=== PATIENT | female | born 1930 | race Hispanic/Latino ===

== ENCOUNTER 2016-08-04 12:52 | Inpatient (IN) | payer MEDICARE ==
[2016-08-04 12:56] VITALS: BMI 46.0
--- NOTE | 2016-08-04 13:34 | ED PDOC ---
Arrival/HPI - General Chief Complaint: Trauma Time Seen by Provider: 08/04/16 13:09 Historian: Patient - History of Present Illness Narrative History of Present Illness (Text): 08/04/16 13:00 Tiffanie Graham is an 85 year old female, whose past medical history includes low platelets and arthritis, who presents to the emergency department complaining of fall in bathroom about 2 hours ago. Patient states that her hands were very sweaty as she was walking into her bathroom that she slipped off her walker and fell. Patient indicates her pain to be localized to her right lateral thorax. Patient confirms that she did not hit her head, lose consciousness, any nausea, or vomiting. Patient states she was on the floor for about 25 minutes. She endorses that she took her daily pain medication today. Patient denies any vomiting, fevers, or any other complaint at this time. PMD: Dr. Garces Time/Duration: 1-3 hours Symptom Onset: Sudden Symptom Course: Unchanged Activities at Onset: Light Context: Home Past Medical History - Provider Review Nursing Documentation Reviewed: Yes - Infectious Disease Hx of Infectious Diseases: None - Tetanus Immunization Tetanus Immunization: Unknown - Reproductive Menopause: Yes - Cardiac Hx Hypertension: Yes - Pulmonary Hx Respiratory Disorders: No - Neurological Hx Neurological Disorder: No - HEENT Hx HEENT Disorder: No - Endocrine/Metabolic Hx Endocrine Disorders: No - Hematological/Oncological Other/Comment: PLATELET ABNORMALITY - Integumentary Hx Dermatological Disorder: No - Musculoskeletal/Rheumatological Hx Falls: Yes - Gastrointestinal Hx Gastrointestinal Disorders: No - Genitourinary/Gynecological Hx Genitourinary Disorders: No - Psychiatric Hx Psychophysiologic Disorder: No Hx Physical Abuse: No Hx Substance Use: No - Past Surgical History Past Surgical History: Non-Contributing - Suicidal Assessment Feels Threatened In Home Enviroment: No Family/Social History - Physician Review Nursing Documentation Reviewed: Yes Family/Social History: No Known Family HX Smoking Status: Never Smoked Hx Alcohol Use: No Hx Substance Use: No Hx Substance Use Treatment: No Allergies/Home Meds Allergies/Adverse Reactions: Allergies No Known Allergies Allergy (Verified 03/11/15 08:58) Home Medications: Home Meds Medication Instructions Recorded Confirmed Prednisone 5 mg PO DAILY 04/11/12 08/04/16 Simvastatin [Zocor] 10 mg PO DAILY 04/11/12 08/04/16 Bumetanide [Bumex] 1 mg PO DAILY 08/04/16 08/04/16 Cholecalciferol [Vitamin D 1000 IU] 50,000 unit PO QWK 08/04/16 08/04/16 Oxybutynin Chloride [Oxybutynin 15 mg PO DAILY 08/04/16 08/04/16 Chloride ER] Oxycodone HCl [Oxycontin] 10 mg PO Q6 08/04/16 08/04/16 Ramipril [Altace] 10 mg PO DAILY 08/04/16 08/04/16 Review of Systems - Review of Systems Constitutional: absent: Fevers, Night Sweats Eyes: absent: Vision Changes ENT: absent: Hearing Changes Respiratory: absent: SOB, Cough Cardiovascular: Other (Pain to right lateral thorax). absent: Chest Pain Gastrointestinal: absent: Abdominal Pain Genitourinary Female: absent: Urine Output Changes Musculoskeletal: absent: Neck Pain Skin: absent: Rash, Pruritis Physical Exam - Physical Exam Narrative Physical Exam (Text): Constitutional: No acute distress. Head: Normocephalic. Atraumatic. Eyes: PERRL. ENT: Moist mucous membranes. Neck: No mindline tenderness. Supple. Cardiovascular: Regular rate. Chest: Tenderness to Right lateral chest wall, under axilla. Respiratory: Clear to auscultation bilaterally. GI: Soft. Nontender. Nondistended. Back: No mindline tenderness. No CVA tenderness. Musculoskeletal: Pelvis stable. Full ROM x4. No new ecchymosis. No tear in skin. No tenderness. Skin: No rash. Neurologic: Alert, no focal deficit. Vital Signs Reviewed: Yes Vital Signs Temp Pulse Resp BP Pulse Ox 08/04/16 14:21 89 18 128/58 L 97 08/04/16 13:01 98.3 F 98 H 18 131/54 L 97 Temperature: Afebrile Blood Pressure: Hypotensive Pulse: Tachycardic Respiratory Rate: Normal Appearance: Positive for: Well-Appearing, Non-Toxic, Comfortable Pain Distress: None Mental Status: Positive for: Alert and Oriented X 3 Medical Decision Making ED Course and Treatment: 08/04/16 13:00 Impression: 85 year old female complaining of fall about 2 hours ago. Plan: -- Head CT w/o contrast -- Right Ribs and Chest X-ray -- Reassess and disposition Prior Visits: Notes and results from previous visits were reviewed. Patient last seen in ED on 03/11/15 for right sided body pain since she fell out of a chair the night before arrival. Patient was discharged home. Progress Notes: 08/04/16 13:00 Patient declined any parenteral analgesia. 08/04/16 14:[address] w/o contrast: Creator : Gorge Aldridge MD FINDINGS: HEMORRHAGE:No intracranial hemorrhage. BRAIN:No mass effect or edema. Chronic microvascular changes are seen in the periventricular white matter. VENTRICLES:Unremarkable. No hydrocephalus. CALVARIUM:Unremarkable. PARANASAL SINUSES:Unremarkable as visualized. No significant inflammatory changes. MASTOID AIR CELLS:Unremarkable as visualized. No inflammatory changes. OTHER FINDINGS:None. IMPRESSION: No acute findings 08/04/16 15:44 PROCEDURE: Radiographs of the Chest and Right Ribs. HISTORY: lateral thoracic pain s/p fall COMPARISON: None available. TECHNIQUE: Frontal radiograph of the chest and multiple oblique radiographs of the right ribs were obtained. FINDINGS: RIGHT RIBS: No fracture or focal lesion visualized. LUNGS: Clear. PLEURA: No pneumothorax or pleural fluid. CARDIOVASCULAR: Normal sized heart. No pulmonary vascular congestion. OTHER FINDINGS: None. IMPRESSION: Unremarkable radiographs of the chest and right ribs. No right rib fracture. Patient states she is still in pain but continues to refuse pain medication preferring to take her home oxycontin. At this time, the patient requests to be kept in the hospital for rehab as she does not feel any strength or ability to take care of self and ambulate at home , especially after her fall. Will draw labs and EKG at this time and call medical service for admission. Will initiate observation now. - RAD Interpretation Radiology Orders: 08/04/16 13:09 HEAD W/O CONTRAST [CT] Stat RIBS RIGHT & PA CHEST [RAD] Stat ED OBSERVATION Date of observation admission: 08/04/16 Time of observation admission: 15:10 - Observation admission statement Patient is being placed in observation because:: fall, requires further evaluation in ER prior to admission. - Goals of Observation Goals of observation are:: safe observation while obtaining admission labs. - Progress Note Progress Note: 08/04/16 15:51 EKG Sinus rhythm 77 bpm, no ST elevations. RBBB. No change from previous. 08/04/16 18:11 Labs unremarkable. Baseline thrombocytopenia. Patient attempted to be ambuated but unable. Patient lives with elderly (over 90 y/o) and has no one to take care of her at home. Unsafe to be discharged. Will require further admission. Pelvis and knee XR obtained as well given decreased ambulation status. Patient states that the pain she has in the pelvis and knee are her baseline. Imaging both negative for fracture or dislocation. Dr. Ashby accepts patient to medical service. - Scribe Statement The provider has reviewed the documentation as recorded by the Obi Luong Provider Scribe Attestation: All medical record entries made by the Obi were at my direction and personally dictated by me. I have reviewed the chart and agree that the record accurately reflects my personal performance of the history, physical exam, medical decision making, and the department course for this patient. I have also personally directed, reviewed, and agree with the discharge instructions and disposition. Disposition/Present on Arrival - Present on Arrival Any Indicators Present on Arrival: No History of DVT/PE: No History of Uncontrolled Diabetes: No Urinary Catheter: No History of Decub. Ulcer: No History Surgical Site Infection Following: None - Disposition Have Diagnosis and Disposition been Completed?: Yes Diagnosis: Decreased ambulation status, Rib pain Disposition: HOSPITALIZED Disposition Time: 18:40 Patient Plan: Admission Condition: STABLE
--- NOTE | 2016-08-04 14:00 | CT ---
PROCEDURE: CT HEAD WITHOUT CONTRAST. HISTORY: fall COMPARISON: 03/11/2015 TECHNIQUE: Axial computed tomography images were obtained through the head/brain without intravenous contrast. Radiation dose: Total exam DLP = 688 mGy-cm. This CT exam was performed using one or more of the following dose reduction techniques: Automated exposure control, adjustment of the mA and/or kV according to patient size, and/or use of iterative reconstruction technique. FINDINGS: HEMORRHAGE: No intracranial hemorrhage. BRAIN: No mass effect or edema. Chronic microvascular changes are seen in the periventricular white matter. VENTRICLES: Unremarkable. No hydrocephalus. CALVARIUM: Unremarkable. PARANASAL SINUSES: Unremarkable as visualized. No significant inflammatory changes. MASTOID AIR CELLS: Unremarkable as visualized. No inflammatory changes. OTHER FINDINGS: None. IMPRESSION: No acute findings
--- NOTE | 2016-08-04 15:07 | RAD ---
PROCEDURE: Radiographs of the Chest and Right Ribs. HISTORY: lateral thoracic pain s/p fall COMPARISON: None available. TECHNIQUE: Frontal radiograph of the chest and multiple oblique radiographs of the right ribs were obtained. FINDINGS: RIGHT RIBS: No fracture or focal lesion visualized. LUNGS: Clear. PLEURA: No pneumothorax or pleural fluid. CARDIOVASCULAR: Normal sized heart. No pulmonary vascular congestion. OTHER FINDINGS: None. IMPRESSION: Unremarkable radiographs of the chest and right ribs. No right rib fracture.
[2016-08-04 16:48] LABS: ADD MANUAL DIFF? NO
[2016-08-04 16:49] LABS: BASO # 0.02 K/mm3 (0.0-2.0); BASO % 0.2 % (0.0-3.0); EOS % 0.1 % (1.5-5.0); GRAN # 6.05 (1.4-6.5); GRAN % 66.6 % (50.0-68.0); LYMPH # 2.2 (1.2-3.4); LYMPH % 24.7 % (22.0-35.0); MEAN CELL VOLUME 91.9 fL (80.0-105.0); MEAN CORPUSCULAR HEMOGLOBIN 30.7 pg (25.0-35.0); MEAN CORPUSCULAR HGB CONC 33.4 g/dl (31.0-37.0); MEAN PLATELET VOLUME 10.2 fl (7.0-11.0); MONO # 0.8 (0.1-0.6); MONO % 8.4 % (1.0-6.0); PLATELET COUNT 102 10^3/uL (120.0-450.0); RED CELL DISTRIBUTION WIDTH 13.9 % (11.5-14.5); WHITE BLOOD COUNT 9.1 10^3/ul (4.5-11.0)
[2016-08-04 17:01] LABS: ALB/GLOB RATIO 1.1 (1.1-1.8); ALKALINE PHOSPHATASE 55 U/L (38-133); ALT/SGPT 33 U/L (7-56); AST/SGOT 32 U/L (15-39); BILIRUBIN,TOTAL 1.1 mg/dL (0.2-1.3); BLOOD UREA NITROGEN 35 mg/dL (7-21); CALCIUM 9.3 mg/dL (8.4-10.5); CARBON DIOXIDE 28 mmol/L (21-33); CHLORIDE 105 mmol/L (98-107); GFR AFRICAN-AMERICAN > 60; GLUCOSE,RANDOM 89 mg/dL (70-110); POTASSIUM 4.3 mmol/L (3.6-5.0); SODIUM 141 mmol/L (132-148); TOTAL PROTEIN 6.6 g/dL (5.8-8.3)
[2016-08-04 18:38] LABS: URINE BILIRUBIN NEGATIVE (NEGATIVE); URINE BLOOD SMALL (NEGATIVE); URINE GLUCOSE (UA) NEGATIVE (NEGATIVE); URINE KETONE NEGATIVE (NEGATIVE); URINE LEUKOCYTE ESTERASE MODERATE Leu/uL (NEGATIVE); URINE PROTEIN NEGATIVE mg/dL (<30 mg/dL); URINE UROBILINOGEN 0.2 E.U./dL (<1 E.U./dL)
[2016-08-04 18:45] LABS: URINE APPEARANCE SL CLOUDY (CLEAR); URINE COLOR YELLOW (YELLOW)
[2016-08-04 18:56] LABS: URINE BACTERIA MANY (NEG); URINE WBC 15 - 20 /hpf (0-6)
[2016-08-04] MEDS ORDERED: levoFLOXacin 500 mg in D5W 500 MG/100 ML BAG IVPB STA (19:00)
[2016-08-04] MEDS ORDERED: oxyCODONE 10 mg ER Tab (oxyCONTIN) PO PRN (20:29)
--- NOTE | 2016-08-04 21:54 | CARD ---
APPROVED REPORT EKG Measurement Heart [id number] <Conclusion> Normal sinus rhythm Right bundle branch block Left anterior fascicular block Bifascicular block Abnormal ECG
[2016-08-04] MEDS: Cefepime 1gm in NS 100ml 1 GM/100 ML BAG IVPB SCH (22:01)
[2016-08-04] MEDS: POLYETHYLENE GLYCOL 3350 17 GM/Dose PACKET PO SCH (23:23)
[2016-08-05 07:47] LABS: ADD MANUAL DIFF? NO
[2016-08-05 07:52] LABS: BASO # 0.02 K/mm3 (0.0-2.0); BASO % 0.3 % (0.0-3.0); EOS % 0.6 % (1.5-5.0); GRAN # 3.65 (1.4-6.5); GRAN % 54.9 % (50.0-68.0); HEMATOCRIT 32.6 % (36.0-48.0); LYMPH # 2.4 (1.2-3.4); LYMPH % 35.6 % (22.0-35.0); MEAN CELL VOLUME 93.4 fL (80.0-105.0); MEAN CORPUSCULAR HEMOGLOBIN 30.4 pg (25.0-35.0); MEAN CORPUSCULAR HGB CONC 32.5 g/dl (31.0-37.0); MEAN PLATELET VOLUME 11.1 fl (7.0-11.0); MONO # 0.6 (0.1-0.6); MONO % 8.6 % (1.0-6.0); PLATELET COUNT 97 10^3/uL (120.0-450.0); RED CELL DISTRIBUTION WIDTH 14.1 % (11.5-14.5); WHITE BLOOD COUNT 6.7 10^3/ul (4.5-11.0)
[2016-08-05 08:02] LABS: ALB/GLOB RATIO 1.2 (1.1-1.8); ALKALINE PHOSPHATASE 40 U/L (38-133); ALT/SGPT 28 U/L (7-56); AST/SGOT 30 U/L (15-39); BILIRUBIN,DIRECT 0.2 mg/dL (0.0-0.4); BILIRUBIN,TOTAL 1.4 mg/dL (0.2-1.3); BLOOD UREA NITROGEN 30 mg/dL (7-21); CALCIUM 8.6 mg/dL (8.4-10.5); CARBON DIOXIDE 28 mmol/L (21-33); CHLORIDE 106 mmol/L (98-107); CHOLESTEROL 162 mg/dL (130-200); GFR AFRICAN-AMERICAN > 60; GLUCOSE,RANDOM 85 mg/dL (70-110); MAGNESIUM 1.9 mg/dL (1.7-2.2); POTASSIUM 4.2 mmol/L (3.6-5.0); SODIUM 139 mmol/L (132-148); TOTAL PROTEIN 5.7 g/dL (5.8-8.3)
[2016-08-05] MEDS: Sodium Chloride 0.9% 1,000 ML IV SCH (09:07)
[2016-08-05] MEDS: Pantoprazole 40 mg EC Tab PO SCH (09:08)
[2016-08-05] MEDS: oxyCODONE 10 mg Immediate Release Tab PO PRN (09:08)
[2016-08-05] MEDS: Cefepime 1gm in NS 100ml 1 GM/100 ML BAG IVPB SCH ×2 (09:09→21:09)
[2016-08-05] MEDS: POLYETHYLENE GLYCOL 3350 17 GM/Dose PACKET PO SCH ×3 (09:09→19:58)
[2016-08-05] MEDS: Metoprolol Succinate 25 mg XL Tab PO SCH (09:10)
[2016-08-05] MEDS ORDERED: Non Formulary Medication (Simvastatin [Simvastatin] 10 MG) PO SCH (10:00)
[2016-08-05] MEDS ORDERED: Pantoprazole 20 mg EC Tab PO SCH (10:00)
--- NOTE | 2016-08-05 10:20 | HP ---
HISTORY OF PRESENT ILLNESS: The patient is an 85-year-old morbidly obese female who came to the Emergency Room by [facility]. The patient stated that the patient fell in the bathroom, complaining of left arm and bilateral leg pain with chronic leg swelling. According to the ER physician evaluation the patient came to the Emergency Room after sustaining a fall in the bathroom about 2 hours ago. The patient also complained of diffuse diaphoresis and slipped while trying to use her walker and fell and fell on the left and hitting her ribcage and does not remember if she hit her head. The patient stated that she was on the floor for 25 minutes. The patient has been on chronic narcotic maintenance. CODE STATUS: Full code. LIVING WILL AND ADVANCED DIRECTIVE: None. ALLERGIES: None. Height is 5 feet 3. Weight is 260. BMI is 46. HOME MEDICATIONS: 1. Oxycodone 1 tab q. 6 hours p.r.n. 2. Vitamin D2 50,000 units weekly. 3. Protonix 40 mg daily. 4. Prednisone 5 mg daily. 5. Lopressor 25 mg daily. 6. Altace 10 mg daily. 7. Allopurinol 100 mg daily. 8. Ultram 50 mg q. 6 hours p.r.n. 9. Simvastatin 10 mg daily. SOCIAL HISTORY: Negative for smoking, negative for alcohol, negative for drug use, negative for communicable transmissible disease. MENSTRUAL HISTORY: The patient is postmenopausal. FAMILY HISTORY: Not available. PAST MEDICAL AND SURGICAL HISTORY: History of morbid obesity, history of gait dysfunction, history of chronic venous stasis of the lower extremity, history of degenerative joint disease and pain syndrome, history of hypovitaminosis D, history of hypertension, history of chronic thrombocytopenia, history of hyperuricemia, history of dyslipidemia. The patient's past medical history is also significant for chronic thrombocytopenia, history of hypovitaminosis D, history of poor compliance, history of microscopic hematuria. The patient's past medical history is significant for history of moderate to severe mitral annular calcification with normal ejection fraction on the echocardiogram done in 2014. The patient's past medical history is also significant for history of obesity, hypertension, thrombocytopenia, degenerative joint disease, history of osteoporosis, history of morbid obesity, history of right bundle branch, left anterior hemiblock, bifascicular block, history of L2 compression deformity, history of degenerative joint disease of the lumbar spine with disk bulge, history of urinary bladder diverticulum, history of right bundle branch block, bifascicular block, left anterior hemiblock, history of cerebral cortical atrophy of the brain, history of degenerative joint disease of the left hip, left sacroiliac joint, degenerative joint disease of the lumbar spine, history of diverticulosis, history of hypertension, history of thrombocytopenia, granulocytosis, history of acute kidney injury, history of probable urinary retention, history of noncompliance, history of moderate to severe mitral annular calcification, history of severe gait dysfunction secondary to morbid obesity, history of diverticulosis, history of cerebral cortical atrophy of the brain, history of lumbar multilevel degenerative disk disease of the spine with disk bulging, history of hypertension, history of mechanical fall, history of questionable urinary tract infection, history of elevated ESR and C-reactive protein, history of hyperuricemia, hypovitaminosis D, history of constipation, history of gait dysfunction, history of urinary bladder diverticulum, history of intractable back pain and hip pain, history of degenerative joint disease, history of morbid obesity. PHYSICAL EXAMINATION: VITAL SIGNS: T-max is 98.3. Heart rate 98, 89, 85, 75, blood pressure initially 131/54, 128/58, 114/50. Respirations 16, O2 sat 97-98%. HEAD: Normocephalic, atraumatic. HEENT: Pinkish, pale conjunctivae, anicteric sclerae. No oropharyngeal lesion. NECK: No neck rigidity. CHEST: Kyphosis. LUNGS: Show no rales, crackles, or wheezing. CARDIOVASCULAR: S1, S2, regular rhythm. Positive systolic murmur left sternal border, left second intercostal space: ABDOMEN: Soft, obese, positive bowel sounds. GENITALIA: Female. RECTAL: Deferred. EXTREMITIES: Show chronic discoloration of the lower extremity, chronic tense edema of the lower extremity. MUSCULOSKELETAL: Shows a body mass index of 46.1. Gait examination could not be tested. NEUROLOGIC: The patient is alert, awake, responsive, is able to move upper extremity, but patient has difficulty moving lower extremity because of the back pain and hip pain. PSYCHIATRIC: Negative for anxiety, depression. Negative for suicidal or homicidal ideation, negative for auditory or visual hallucinations. DIAGNOSTICS: WBC 9.1, hemoglobin and hematocrit 11.7 and 35.0, platelet 102. Sodium 141, potassium 4.3, chloride 105, CO2 28, anion gap 12, BUN 35, creatinine 1.0, GFR greater than 60, glucose 89, calcium 9.3, total bili 1.1. CPK 360. LFTs are normal. Urine pH 6.0, specific gravity 1.025, small blood, nitrite positive, moderate leukocyte esterase, WBC 15-20, bacteria many. CT of the head done in the Emergency Room was negative for bleed; chronic microvascular ischemic disease of the brain. EKG done in the Emergency Room shows sinus rhythm, left anterior hemiblock, right bundle branch block, bifascicular block. The patient was seen in the Emergency Room by Dr. Brown. The patient refused pain medication and continues to be in pain. The patient stated that she took her OxyContin. The patient has requested to be kept in the hospital. The stated that she was unable to ambulate and the patient has an elderly at home without any help and there is nobody to take care of her. The patient was found to be unsafe discharge by Dr. Brown because of the pain, difficulty walking, difficulty ambulation and the patient was placed in ER OBS and then medical observation. IMPRESSION: 1. Status post mechanical fall. 2. Probable ribcage contusion and leg pain. 3. History of hypertension. 4. Severe gait dysfunction. 5. Morbid obesity. 6. 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 7. Anemia. 8. Thrombocytopenia. 9. Mild prerenal kidney injury. 10. Mild rhabdomyolysis. 11. Questionable urinary tract infection with microscopic hematuria, pyuria, bacteriuria. 12. Chronic microvascular ischemic disease of the brain. 13. History of chronic thrombocytopenia. 14. 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 Severe gait dysfunction. 16. History of chronic narcotic-dependent pain syndrome, history of hypovitaminosis D, history of hypertension, history of hyperuricemia, history of dyslipidemia. PLAN: At this time, patient was found to be an unsafe discharge because of severe gait dysfunction and fall and decreased ambulation. The patient requested to be placed in a rehab. The patient has been ordered repeat labs. Lipid panel, thyroid panel, vitamin D, repeat labs ordered for the morning. Urine culture ordered. The patient has been ordered pelvis and knee x-rays, reports are pending. Consultation with podiatry has been ordered. The patient is resumed on most of the home medications. The patient was started on cefepime 1 gram IV q. 12, MiraLax 17 g twice a day, Altace 10 mg daily, Drisdol 50,000 weekly. The patient received a dose of Levaquin 500 IV in the Emergency Room. Lipitor 10 mg daily, cefepime 1 gram IV q. 12, MiraLax 17 g twice a day, oxycodone 10 mg q. 6 p.r.n., prednisone 5 mg daily, Protonix 40 daily, Toprol-XL 25 mg daily, Ultram 50 mg q. 6 p.r.n., allopurinol 100 mg daily. Out of bed has been ordered. Physical therapy, ambulation therapy ordered. The patient will be started on some gentle IV fluid hydration because of prerenal kidney injury. At present, the patient is awaiting for a bed. The patient's case will be referred for discharge planning. Occupational therapy will be ordered. The patient has been advised very extensively about possible long-term placement as patient has no help at home and the patient has an elderly . Dictated and electronically signed, not yet. Quinten Ashby MD cc: [id number] TT: 08/04/2016 23:19:04 tn MTDD
--- NOTE | 2016-08-05 12:41 | RAD ---
PROCEDURE: Radiographs of the pelvis. HISTORY: fall, unable to ambulate COMPARISON: None. FINDINGS: BONES: Pelvic Bones: Limited examination. Single mildly oblique view. No fracture identified. Hips: No fracture. Severe osteoarthritis with remodeling of superior acetabulum. JOINTS: Sacroiliac Joints: Unremarkable. Pubic Symphysis: Unremarkable. OTHER FINDINGS: None. IMPRESSION: Severe osteoarthritis left hip. No evidence of acute fracture. Limited examination.
--- NOTE | 2016-08-05 12:42 | RAD ---
PROCEDURE: Left Knee Radiographs. HISTORY: Pain. COMPARISON: None. FINDINGS: BONES: No evidence of fracture. JOINTS: Medial and patellofemoral osteoarthritis. No articular erosion. JOINT EFFUSION: None. OTHER FINDINGS: None. IMPRESSION: No acute fracture. Medial and patellofemoral osteoarthritis.
--- NOTE | 2016-08-05 19:15 | PN ---
DATE: 08/05/2016 The patient is seen in room 375, bed 2. The patient is seen lying in the bed. The patient is still complaining of hip pain and back pain. Overnight nurses' notes were reviewed. The patient required Ultram overnight. The patient continued to have the Hernandez catheter. OBJECTIVE: VITAL SIGNS: T-max in the last 24 hours 98.3, pulse rate of 71-98, blood pressure 131/54, 114/50, 121/70; respirations 18, O2 sat 98% and 99%. INTAKE AND OUTPUT: Intake 720, output 400. Yesterday's output was 400+800, 1200 total. HEAD: Normocephalic, atraumatic. HEENT: Shows pinkish, pale conjunctivae, anicteric sclerae. Dry oral mucosa. NECK: No neck rigidity. CHEST: Kyphosis. LUNGS: Shows no rales, crackles, or wheezing. CARDIOVASCULAR: S1, S2, regular rhythm. Questionable soft systolic murmur left sternal border, left second intercostal space. ABDOMEN: Obese, positive bowel sounds. GENITALIA: Female. Positive Hernandez catheter. EXTREMITIES: Positive chronic lower extremity skin changes and nonpitting edema of the lower extremity. VASCULAR: Could not be palpated pulses. MUSCULOSKELETAL: Shows a body mass index of 46. Weight is 260. NEUROLOGIC: The patient is alert, awake, responsive, is able to move upper extremity without assistance. The patient has difficulty moving lower extremity because of the back pain and hip pain. PSYCHIATRIC: Negative for anxiety, depression. Negative for auditory or visual hallucinations. Negative for suicidal or homicidal ideation. DIAGNOSTICS: From 08/05: WBC 6.7, hemoglobin and hematocrit 10.6 and 32.6, platelets 97,000. Sodium 139, potassium 4.2, chloride 106, CO2 of 28, anion gap 9, BUN 30, creatinine 0.9, GFR greater than 60, glucose 85, uric acid 6.0, calcium 8.6, magnesium 1.9. Total protein 5.7, albumin 3.1. Cholesterol 162, triglyceride 112, LDL 90, HDL 50. Vitamin D25 hydroxy 28. Pelvic x-rays: Severe osteoarthritis of the left hip with remodeling of the superior acetabulum. Osteoarthritis of the left knee noted with medial and patellofemoral osteoarthritis of the left knee. 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 IMPRESSION AND PLAN: 1. Status post mechanical fall. 2. Probable ribcage contusion and leg pain and back pain. 3. Questionable intractable pain disorder and narcotic dependent pain syndrome. 4. Severe gait dysfunction. 5. Hypertension. 6. History of hypertension, normotension at present. 7. Stage II sacral decubitus ulceration. 8. Normocytic anemia with thrombocytopenia. 9. Mild prerenal kidney injury. 10. Hyperbilirubinemia. 11. Hypovitaminosis D. 12. History of dyslipidemia. 13. Microscopic hematuria, pyuria, bacteriuria. 14. Questionable urinary tract infection. 15. Severe osteoarthritis of the left hip. 16. Left knee osteoarthritis with medial and patellofemoral osteoarthritis of the left knee. 17. 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 18. Questionable urinary tract infection with microscopic hematuria, pyuria, bacteriuria. 1. Status post mechanical fall. 2. Probable ribcage contusion and leg pain. 3. History of hypertension. 4. Severe gait dysfunction. 5. Morbid obesity. 6. 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 7. Anemia. 8. Thrombocytopenia. 9. Mild prerenal kidney injury. 10. Mild rhabdomyolysis. 11. Questionable urinary tract infection with microscopic hematuria, pyuria, bacteriuria. 12. Chronic microvascular ischemic disease of the brain. 13. History of chronic thrombocytopenia. 14. 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 Severe gait dysfunction. 16. History of chronic narcotic-dependent pain syndrome, history of hypovitaminosis D, history of hypertension, history of hyperuricemia, history of dyslipidemia. PLAN: At this time, the patient has been ordered serial labs. Podiatry consultation ordered. The patient is to be continued on Altace 10 mg daily, Drisdol 50,000 weekly. The patient has been started on Lac-Hydrin lotion to both legs. The patient is on Lipitor 10 mg daily, Maxipime 1 gram IV q.12, MiraLax 17 g twice a day, oxycodone 10 mg q.6 p.r.n., prednisone 5 mg daily, Protonix 40 mg daily, IV fluids 0.9 normal saline at 60 mL an hour, Toprol-XL 25 mg daily, tramadol 50 mg q.6 p.r.n., vitamin D3 2000 units daily, allopurinol 100 mg daily. The patient has been ordered out of bed. Knee high MARIANO stockings ordered. Occupational therapy and physical therapy ordered. The patient's case has been referred for initiating discharge planning. The patient has been ordered serial labs. The patient has been ordered out of bed to chair. At present, the patient's further management will be dependent upon the patient's clinical condition, hemodynamic status, and as per patient's response to therapeutic intervention, as per patient's diagnostic test results and recommendation based on the patient's clinical condition, hemodynamic status, and response to therapeutic intervention. The patient has been ordered physical and occupational therapy. The patient has been advised to cooperate and encouraged to participate in physical therapy, which the patient acknowledges and understands at present. The patient was told and explained about the risk of not ambulating and risk of bedridden status, which was explained to the patient in layman's language. All questions and concerns were answered. The patient was advised, encouragement with out of bed to chair, encouragement with ambulation was ordered and encouragement with ambulation was also done. Dictated and electronically signed, not read. Quinten Ashby MD cc: [id number] TT: 08/05/2016 19:14:42 Confirmation # [id number] Dictation # [id number] lobo STUBBS
[2016-08-06] MEDS: Sodium Chloride 0.9% 1,000 ML IV SCH ×2 (02:19→20:40)
[2016-08-06 07:10] LABS: ADD MANUAL DIFF? NO
[2016-08-06 07:15] LABS: BASO # 0.03 K/mm3 (0.0-2.0); BASO % 0.4 % (0.0-3.0); EOS # 0.1 (0.0-0.7); EOS % 1.8 % (1.5-5.0); GRAN # 3.23 (1.4-6.5); GRAN % 47.3 % (50.0-68.0); HEMATOCRIT 33.2 % (36.0-48.0); LYMPH # 2.8 (1.2-3.4); LYMPH % 41.6 % (22.0-35.0); MEAN CORPUSCULAR HEMOGLOBIN 30.5 pg (25.0-35.0); MEAN CORPUSCULAR HGB CONC 32.8 g/dl (31.0-37.0); MEAN PLATELET VOLUME 10.9 fl (7.0-11.0); MONO # 0.6 (0.1-0.6); MONO % 8.9 % (1.0-6.0); PLATELET COUNT 88 10^3/uL (120.0-450.0); RED CELL DISTRIBUTION WIDTH 13.8 % (11.5-14.5); WHITE BLOOD COUNT 6.8 10^3/ul (4.5-11.0)
[2016-08-06 07:28] LABS: ALB/GLOB RATIO 1.2 (1.1-1.8); ALKALINE PHOSPHATASE 41 U/L (38-133); ALT/SGPT 30 U/L (7-56); AST/SGOT 31 U/L (15-39); BILIRUBIN,DIRECT 0.2 mg/dL (0.0-0.4); BILIRUBIN,TOTAL 1.1 mg/dL (0.2-1.3); BLOOD UREA NITROGEN 26 mg/dL (7-21); CALCIUM 8.7 mg/dL (8.4-10.5); CARBON DIOXIDE 29 mmol/L (21-33); CHLORIDE 105 mmol/L (98-107); GFR AFRICAN-AMERICAN > 60; GLUCOSE,RANDOM 81 mg/dL (70-110); MAGNESIUM 1.9 mg/dL (1.7-2.2); POTASSIUM 4.4 mmol/L (3.6-5.0); SODIUM 137 mmol/L (132-148); TOTAL PROTEIN 5.5 g/dL (5.8-8.3); URIC ACID 5.5 mg/dL (2.5-6.2)
[2016-08-06] MEDS: Metoprolol Succinate 25 mg XL Tab PO SCH (09:57)
[2016-08-06] MEDS: oxyCODONE 10 mg Immediate Release Tab PO PRN (09:57)
[2016-08-06] MEDS: Cefepime 1gm in NS 100ml 1 GM/100 ML BAG IVPB SCH ×2 (09:57→22:33)
[2016-08-06] MEDS: Pantoprazole 40 mg EC Tab PO SCH (09:57)
[2016-08-06] MEDS: POLYETHYLENE GLYCOL 3350 17 GM/Dose PACKET PO SCH ×2 (09:58→18:19)
[2016-08-06] MEDS: Ammonium Lactate 12% Lotion (225 g) EXT SCH (09:58)
--- NOTE | 2016-08-06 15:47 | PN ---
DATE: 08/06/2016 The patient is seen in room 375, bed 2. The patient is still complaining of back pain. The patient is refusing physical therapy. The patient is refusing to be out of bed to chair because of the back pain, hip pain. The patient was seen when the patient's nurse, . The patient was seen lying in the bed, in room 375, bed 2. Overnight nurse's notes were reviewed. PHYSICAL EXAMINATION: VITAL SIGNS: T-max 98, heart rate , blood pressure 148/76, 152/75, 121/___ __. Respirations 18, O2 sat 99%. INTAKE AND OUTPUT: Intake 720, output 700. GENERAL: The patient is seen lying in the bed. The patient is comfortable, watching TV. HEAD: Normocephalic, atraumatic. HEENT: Shows pinkish, pale conjunctivae. Dry oral mucosa. NECK: No neck rigidity. CHEST: Kyphosis. LUNGS: Shows no rales, crackles, or wheezing. CARDIOVASCULAR: Shows S1, S2, regular rhythm. Questionable soft systolic murmur left sternal border, left second intercostal space. ABDOMEN: Protuberant, positive bowel sounds. GENITALIA: Female. Positive Hernandez catheter. EXTREMITIES: Shows chronic skin changes of the lower extremities. MUSCULOSKELETAL: Shows elevated body mass index of 46. VASCULAR: Palpable pulses. NEUROLOGIC: Cranial nerves II-XII limited. GAIT: Could not be tested. PSYCHIATRIC: Negative for anxiety, depression. Negative for suicidal or homicidal ideation. Negative for auditory or visual hallucination. DIAGNOSTICS: WBC 6.8, hemoglobin and hematocrit 11 and 33, platelets 92,000. Sodium 137, potassium 4.4, chloride 105, CO2 , anion gap 7, BUN 26, creatinine 1.0, GFR greater than 60, glucose 81, calcium 8.7. Uric acid 5.5, magnesium 1.9. LFTs are normal. Total protein 5.5. Thyroid panel is negative. Urine culture, gram-negative nereida, identification and sensitivity pending. The patient was explained about all her x-ray reports, CAT scan reports. IMPRESSION AND PLAN: 1. Status post mechanical fall. 2. Intractable narcotic dependent pain syndrome. 3. Poor compliance. 4. Severe gait dysfunction with bedridden status versus questionable functional quadriplegia. 5. History of hypertension. 6. Transient episodic hypotension. 7. Normocytic anemia. 8. Thrombocytopenia. 9. Prerenal kidney injury. 10. Transient hyperbilirubinemia. 11. Hypovitaminosis D. 12. Morbid obesity with elevated body mass index of 46.1. 13. Gram-negative nereida urinary tract infection with microscopic hematuria, pyuria, bacteriuria. 14. Chronic venous stasis of the lower extremities, chronic venous stasis skin changes of the lower extremities. 15. Status post mechanical fall. 16. Intractable narcotic dependent pain syndrome and disorder. 17. Stage II sacral decubitus ulceration. 18. Normocytic anemia. 19. Hyperbilirubinemia. 20. Severe osteoarthritis of the left hip. 21. Left knee osteoarthritis with medial and patellofemoral osteoarthritis of the left knee. 22. 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 23. History of hypertension, dyslipidemia. 24. History of chronic thrombocytopenia. 25. 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 26. Gram-negative nereida urinary tract infection. 1. Status post mechanical fall. 2. Probable ribcage contusion and leg pain and back pain. 3. Questionable intractable pain disorder and narcotic dependent pain syndrome. 4. Severe gait dysfunction. 5. Hypertension. 6. History of hypertension, normotension at present. 7. Stage II sacral decubitus ulceration. 8. Normocytic anemia with thrombocytopenia. 9. Mild prerenal kidney injury. 10. Hyperbilirubinemia. 11. Hypovitaminosis D. 12. History of dyslipidemia. 13. Microscopic hematuria, pyuria, bacteriuria. 14. Questionable urinary tract infection. 15. Severe osteoarthritis of the left hip. 16. Left knee osteoarthritis with medial and patellofemoral osteoarthritis of the left knee. 17. 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 18. Questionable urinary tract infection with microscopic hematuria, pyuria, bacteriuria. 1. Status post mechanical fall. 2. Probable ribcage contusion and leg pain. 3. History of hypertension. 4. Severe gait dysfunction. 5. Morbid obesity. 6. 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 7. Anemia. 8. Thrombocytopenia. 9. Mild prerenal kidney injury. 10. Mild rhabdomyolysis. 11. Questionable urinary tract infection with microscopic hematuria, pyuria, bacteriuria. 12. Chronic microvascular ischemic disease of the brain. 13. History of chronic thrombocytopenia. 14. 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 Severe gait dysfunction. 16. History of chronic narcotic-dependent pain syndrome, history of hypovitaminosis D, history of hypertension, history of hyperuricemia, history of dyslipidemia. PLAN: At this time, patient has been seen with her nurse. The patient has been strictly encouraged to be out of bed to chair and cooperate with physical therapy. The patient was seen by physical therapy. Their first evaluation and recommendation is subacute rehabilitation. Repeat urine cultures ordered. CURRENT MEDICATIONS: 1. Altace 10 mg daily. 2. The patient is started on Dilaudid 1 mg IV q. 4 hours p.r.n. for pain. 3. The patient's oxycodone and Ultram or tramadol is held at this time. 4. The patient is on Drisdol 50,000 units weekly. 5. Lac-Hydrin lotion to both feet. 6. Lipitor 10 mg daily. 7. Cefepime 1 gram IV q. 12. 8. MiraLax 17 g twice a day. 9. Prednisone 5 mg daily. 10. Protonix 40 mg daily. 11. IV fluid 0.9 normal saline at 60 mL an hour. 12. Toprol-XL 25 mg daily. 13. Vitamin D3 2000 units daily. 14. Zofran 4 mg IV q. 4 hours p.r.n. 15. Allopurinol 100 mg daily. The patient has been referred for discharge planning. MARIANO stockings, thigh high , SCDs ordered. Occupational therapy, physical therapy ordered. The patient seen by physical therapist today. According to the physical therapy, patient only ambulates 10-15 feet using rolling walker to commode. The patient was found to be deconditioned with impaired mobility skills with fall. Physical therapy recommends skilled PT intervention with subacute rehab discharge recommendation. The patient is to be continued on the above therapeutic intervention. The patient has been updated about her diagnostics and therapeutic interventions in layman's language. All questions and concerns answered. Dictated and electronically signed, not read. Quinten Ashby MD cc: [id number] TT: 08/06/2016 15:47:31 Confirmation # [id number] Dictation # [id number] en MTDNicol
[2016-08-07] MEDS: HYDROmorphone 1 mg/ml ISec IVP PRN ×2 (02:16→20:20)
[2016-08-07 07:30] LABS: ADD MANUAL DIFF? NO
[2016-08-07 07:35] LABS: BASO # 0.04 K/mm3 (0.0-2.0); BASO % 0.6 % (0.0-3.0); EOS # 0.2 (0.0-0.7); EOS % 2.2 % (1.5-5.0); GRAN # 3.21 (1.4-6.5); GRAN % 47.2 % (50.0-68.0); HEMATOCRIT 33.7 % (36.0-48.0); LYMPH # 2.9 (1.2-3.4); LYMPH % 42.5 % (22.0-35.0); MEAN CELL VOLUME 92.6 fL (80.0-105.0); MEAN CORPUSCULAR HEMOGLOBIN 30.5 pg (25.0-35.0); MEAN CORPUSCULAR HGB CONC 32.9 g/dl (31.0-37.0); MEAN PLATELET VOLUME 10.6 fl (7.0-11.0); MONO # 0.5 (0.1-0.6); MONO % 7.5 % (1.0-6.0); PLATELET COUNT 92 10^3/uL (120.0-450.0); RED CELL DISTRIBUTION WIDTH 13.7 % (11.5-14.5); WHITE BLOOD COUNT 6.8 10^3/ul (4.5-11.0)
[2016-08-07 07:53] LABS: ALB/GLOB RATIO 1.1 (1.1-1.8); ALKALINE PHOSPHATASE 44 U/L (38-133); ALT/SGPT 28 U/L (7-56); AST/SGOT 22 U/L (15-39); BILIRUBIN,DIRECT 0.3 mg/dL (0.0-0.4); BILIRUBIN,TOTAL 0.9 mg/dL (0.2-1.3); BLOOD UREA NITROGEN 23 mg/dL (7-21); CALCIUM 8.8 mg/dL (8.4-10.5); CARBON DIOXIDE 28 mmol/L (21-33); CHLORIDE 107 mmol/L (98-107); GFR AFRICAN-AMERICAN > 60; GLUCOSE,RANDOM 76 mg/dL (70-110); POTASSIUM 4.3 mmol/L (3.6-5.0); SODIUM 138 mmol/L (132-148); TOTAL PROTEIN 5.8 g/dL (5.8-8.3)
[2016-08-07] MEDS: Pantoprazole 40 mg EC Tab PO SCH (08:57)
--- NOTE | 2016-08-07 08:57 | CON ---
DATE: 08/05/2016 An 85-year-old female seen at bedside for consultation, evaluation and management of stasis dermatiti s to both lower extremities, as well as lower extremity muscle weakness. [facility]. She states she is very weak on her feet and feels that even using her walker her legs give out. The patient's medical history is significant for morbid obe sity, venous stasis ulcerations to both lower extremities, lower extremity edema and ambulatory dysfu nction. SOCIAL HISTORY: The patient denies any history of smoking, illicit drug use and does not drink alcoh ol. FAMILY HISTORY: Noncontributory. CURRENT MEDICATIONS: All medications are noted in MAR. VITAL SIGNS: Reveals a temperature of 98.1, pulse rate of 71, blood pressure of 121/70, respiratory rate of 18. LABORATORY DATA: Reveal a white count of 6.7, hemoglobin of 10.6, hematocrit of 32.6, platelet count of 97. OBJECTIVE: Nonpalpable pedal pulses noted bilaterally, +2 nonpitting lower extremity edema noted nas aterally. The patient has decreased protective sensation noted bilaterally using 5.07 gram monofilam ent wire testing. Both lower extremities present with chronic changes consistent with venous stasis dermatitis. There are no open lesions noted. There is no drainage. There is no weeping. There are no signs of cellulitis. However, the patient is unable to lift each leg and has difficulty dorsifle tasha and plantar flexing her foot secondary to muscle weakness. ASSESSMENT: Chronic venous stasis dermatitis, generalized lower extremity muscle weakness. PLAN: The patient was seen and evaluated. Would recommend physical therapy to get her up and walkin g using a walker and strengthen her legs. We will order compression stockings to decrease her lower extremity edema and they can be worn when she is performing physical therapy. They are to be removed after dinner or before bedtime and then reapplied after breakfast. We will order Lac-Hydrin to be a pplied to both lower legs daily. The patient will be seen and followed daily. Wil Cerda DPM cc: [id number] TT: 08/05/2016 18:47:02 Confirmation # [id number] Dictation # [id number] mn
[2016-08-07] MEDS: Metoprolol Succinate 25 mg XL Tab PO SCH (09:00)
[2016-08-07] MEDS: Cefepime 1gm in NS 100ml 1 GM/100 ML BAG IVPB SCH ×2 (09:01→21:38)
[2016-08-07] MEDS: POLYETHYLENE GLYCOL 3350 17 GM/Dose PACKET PO SCH ×3 (09:01→17:46)
[2016-08-07] MEDS: Ammonium Lactate 12% Lotion (225 g) EXT SCH (11:04)
--- NOTE | 2016-08-07 12:18 | PN ---
DATE: 08/07/2016 The patient is seen in room 375, bed 2. The patient's overnight nurse's notes were reviewed. The patient refused MARIANO stockings. The patient continued to have Hernandez catheter drainage. The patient had episode of leg pain at 2 a.m. Dilaudid was given. The patient was in no distress noted. PHYSICAL EXAMINATION: VITAL SIGNS: T-max 98.6, pulse -75-89-67-60, blood pressure 148/76, 135/65 , 110/63, respirations 19, O2 sat 95%. HEAD: Normocephalic, atraumatic. HEENT: Shows pinkish conjunctivae. Anicteric sclerae. No oropharyngeal lesion. NECK: No neck rigidity. CHEST: Kyphosis. LUNGS: Shows no rales, crackles, or wheezing. CARDIOVASCULAR: Shows S1, S2, regular rhythm. Questionable soft systolic murmur left sternal border, right second intercostal space. ABDOMEN: Protuberant, obese. GENITALIA: Female. Positive Hernandez catheter. EXTREMITIES: Shows chronic discoloration of the lower extremity with trace swelling of the lower extremity with chronic venous stasis dermatitis. MUSCULOSKELETAL: Shows a body mass index of 46. NEUROLOGIC: Cranial nerves II-XII limited. GAIT: Could not be tested. VASCULAR: Palpable pulses. PSYCHIATRIC: Negative for anxiety, depression. Negative for suicidal or homicidal ideation. Negative for auditory or visual hallucination. DIAGNOSTICS: 08/07, WBC 6.8, hemoglobin and hematocrit 11.1 and 33.7, platelets 110,000. Sodium 138, potassium 4.3, chloride 107, CO2 28, anion gap 7, BUN 23, creatinine 0.9, GFR greater than 60, glucose 76, calcium 8.8, magnesium 2.0. LFTs are normal. Urine culture is growing Escherichia coli, which is pansensitive. Repeat urine cultures from 08/06, no growth. IMPRESSION AND PLAN: 1. Severe gait dysfunction and deconditioning. 2. Status post mechanical fall. 3. Intractable narcotic dependent pain syndrome. 4. Poor compliance. 5. Severe gait dysfunction with bedridden status versus functional quadriplegia. 6. Transient hypotension. 7. Anemia, thrombocytopenia. 8. Prerenal kidney injury. 9. Hypovitaminosis D. 10. Hypercholesterolemia. 11. Prerenal kidney injury. 12. Pansensitive Escherichia coli urinary tract infection with microscopic hematuria, pyuria, bacteriuria. 13. Stage II sacral decubitus ulceration. 14. 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 15. Left knee medial and patellofemoral osteoarthritis. 16. Severe deconditioning. 17. Status post mechanical fall. 18. Morbid obesity with body mass index of greater than 46. 19. Chronic microvascular ischemic disease of the brain. 20. 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 21. Chronic venous stasis dermatitis with bilateral lower extremity weakness secondary to intractable pain syndrome. 22. Pansensitive Escherichia coli urinary tract infection. 23. History of hypertension with transient episodic hypotension. 24. Normocytic anemia. 25. Thrombocytopenia. 26. Transient hyperbilirubinemia. 27. Hypovitaminosis D. 28. Intractable narcotic dependent pain syndrome and disorder. 29. Stage II sacral decubitus ulceration. 30. Poor compliance. 31. History of hypertension, hypovitaminosis D, dyslipidemia, constipation, hypovitaminosis D, hyperuricemia. 1. Status post mechanical fall. 2. Intractable narcotic dependent pain syndrome. 3. Poor compliance. 4. Severe gait dysfunction with bedridden status versus questionable functional quadriplegia. 5. History of hypertension. 6. Transient episodic hypotension. 7. Normocytic anemia. 8. Thrombocytopenia. 9. Prerenal kidney injury. 10. Transient hyperbilirubinemia. 11. Hypovitaminosis D. 12. Morbid obesity with elevated body mass index of 46.1. 13. Gram-negative nereida urinary tract infection with microscopic hematuria, pyuria, bacteriuria. 14. Chronic venous stasis of the lower extremities, chronic venous stasis skin changes of the lower extremities. 15. Status post mechanical fall. 16. Intractable narcotic dependent pain syndrome and disorder. 17. Stage II sacral decubitus ulceration. 18. Normocytic anemia. 19. Hyperbilirubinemia. 20. Severe osteoarthritis of the left hip. 21. Left knee osteoarthritis with medial and patellofemoral osteoarthritis of the left knee. 22. 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 23. History of hypertension, dyslipidemia. 24. History of chronic thrombocytopenia. 25. 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 26. Gram-negative nereida urinary tract infection. 1. Status post mechanical fall. 2. Probable ribcage contusion and leg pain and back pain. 3. Questionable intractable pain disorder and narcotic dependent pain syndrome. 4. Severe gait dysfunction. 5. Hypertension. 6. History of hypertension, normotension at present. 7. Stage II sacral decubitus ulceration. 8. Normocytic anemia with thrombocytopenia. 9. Mild prerenal kidney injury. 10. Hyperbilirubinemia. 11. Hypovitaminosis D. 12. History of dyslipidemia. 13. Microscopic hematuria, pyuria, bacteriuria. 14. Questionable urinary tract infection. 15. Severe osteoarthritis of the left hip. 16. Left knee osteoarthritis with medial and patellofemoral osteoarthritis of the left knee. 17. 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 18. Questionable urinary tract infection with microscopic hematuria, pyuria, bacteriuria. 1. Status post mechanical fall. 2. Probable ribcage contusion and leg pain. 3. History of hypertension. 4. Severe gait dysfunction. 5. Morbid obesity. 6. 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 7. Anemia. 8. Thrombocytopenia. 9. Mild prerenal kidney injury. 10. Mild rhabdomyolysis. 11. Questionable urinary tract infection with microscopic hematuria, pyuria, bacteriuria. 12. Chronic microvascular ischemic disease of the brain. 13. History of chronic thrombocytopenia. 14. 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 Severe gait dysfunction. 16. History of chronic narcotic-dependent pain syndrome, history of hypovitaminosis D, history of hypertension, history of hyperuricemia, history of dyslipidemia. PLAN: At this time, patient has been ordered serial labs. CURRENT MEDICATIONS: 1. Altace 10 mg daily. 2. Dilaudid 1 mg IV q. 4 p.r.n. for pain. 3. Drisdol 50,000 weekly. 4. Lac-Hydrin lotion to the legs daily. 5. Lipitor 10 mg daily. 6. Cefepime 1 gram IV q. 12. 7. MiraLax 17 g twice a day. 8. Prednisone 5 mg daily. 9. Protonix 40 mg daily. 10. IV fluid 0.9 normal saline at 60 mL an hour to finish tomorrow. 11. Toprol-XL 25 mg daily. 12. Vitamin D3 2000 units daily. 13. Zofran 4 mg IV q. 4 p.r.n. 14. Allopurinol 100 mg daily. Heart healthy diet. Out of bed to chair, MARIANO gonzalez, SCDs. Physical therapy , occupational therapy all ordered. At present, patient's case is referred for physical therapy, occupational therapy, discharge planning has been ordered. The patient's case is referred for discharge planning. The patient seen by physical therapist. Their recommendation is subacute rehabilitation. The patient is again advised and encouraged to be out of bed to chair. Dictated and electronically signed, not read. Quinten Ashby MD cc: [id number] TT: 08/07/2016 12:17:15 Confirmation # [id number] Dictation # [id number] en MTDD
--- NOTE | 2016-08-07 17:25 | CP.PCM.PN ---
<Bita Silva - Last Filed: 08/07/16 17:21> Subjective - Date & Time of Evaluation Date of Evaluation: 08/07/16 Time of Evaluation: 16:00 - Subjective Subjective: 85 yo female patient seen at [facility] with Dr. 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 Pt seen resting comfortably in bed at time of visit. Denies f/n/v/c/sob/cp. Says the cream that was ordered has been helping but does admit to persistent itchiness to the top of both feet. Says she was not able to tolerate the stockings that were ordered as she felt they were too tight and painful. Pt says she does elevate the legs daily on her recliner at home, says that she has to sleep in the recliner because she can not get into the bed with the leg weakness. Objective - Vital Signs/Intake and Output Vital Signs (last 24 hours): Temp Pulse Resp BP Pulse Ox 98 F 63 19 135/66 95 08/07/16 08:47 08/07/16 09:00 08/07/16 08:47 08/07/16 09:00 08/07/16 08:47 Intake and Output: 08/07/16 08/07/16 06:59 18:59 Intake Total 880 240 Output Total 1200 800 Balance -320 -560 - Medications Medications: Current Medications Allopurinol (Zyloprim) 100 mg PO DAILY [facility] Last Admin: 08/07/16 09:00 Dose: 100 mg Atorvastatin Calcium (Lipitor) 10 mg PO DIN [facility] Last Admin: 08/06/16 18:20 Dose: 10 mg Cholecalciferol (Vitamin D) 2,000 iu PO DAILY [facility] Last Admin: 08/07/16 09:00 Dose: 2,000 iu Desoximetasone (Topicort 0.25%) 0 ea TOP BID [facility] Ergocalciferol (Drisdol 50,000 Intl Units Cap) 1 cap PO QWK [facility] Hydromorphone HCl (Dilaudid) 1 mg IVP Q4H PRN PRN Reason: Pain, moderate (4-7) Last Admin: 08/07/16 02:16 Dose: 1 mg Cefepime HCl (Maxipime 1gm) 1 gm in 100 mls @ 100 mls/hr IVPB Q12 [facility] PRN Reason: Protocol Last Admin: 08/07/16 09:01 Dose: 100 mls/hr Sodium Chloride (Sodium Chloride 0.9%) 1,000 mls @ 60 mls/hr IV .[id number] [facility] Stop: 08/08/16 20:19 Last Admin: 08/06/16 20:40 Dose: 60 mls/hr Lactic Acid (Lac-Hydrin 12% Lotion (225 G)) 0 gm EXT DAILY [facility] Last Admin: 08/07/16 11:04 Dose: 1 appful Metoprolol Succinate (Toprol Xl) 25 mg PO DAILY [facility] Last Admin: 08/07/16 09:00 Dose: 25 mg Ondansetron HCl (Zofran Inj) 4 mg IVP Q4H PRN PRN Reason: Nausea/Vomiting Pantoprazole Sodium (Protonix Ec Tab) 40 mg PO ACB [facility] Last Admin: 08/07/16 08:57 Dose: 40 mg Polyethylene Glycol (Miralax) 17 gm PO BID [facility] Last Admin: 08/07/16 09:01 Dose: 17 gm Prednisone (Prednisone Tab) 5 mg PO DAILY [facility] Last Admin: 08/07/16 09:00 Dose: 5 mg Ramipril (Altace) 10 mg PO DAILY [facility] Last Admin: 08/07/16 09:00 Dose: 10 mg - Labs Labs: 08/07/16 07:00 08/07/16 07:00 - Constitutional Appears: Non-toxic, No Acute Distress - Extremities Exam Extremities Exam: absent: Calf Tenderness Additional comments: Bilateral lower extremity exam: Vasc: DP pulses faintly palpable bl, PT pulses nonpalpable bl, 2+ pitting edema noted to lower extremity bl, skin temp runs warm to cool, cap refill time <4 sec to digits x 10 Derm: no open lesions, no drainage, no erythema, there are chronic changes to the skin bilateral consistent with venous stasis dermatitis, no fluctuance, no malodor Neuro: pedal sensation is decreased bl - Neurological Exam Neurological Exam: Alert, Awake, Oriented x3 - Psychiatric Exam Psychiatric exam: Normal Affect, Normal Mood Assessment and Plan - Assessment and Plan (Free Text) Assessment: 85 yo female with chronic venous stasis induced dermatitis, lower extremity weakness Plan: -Pt S&E at bedside with Dr. Quinn present -Chart, labs, vitals reviewed: afebrile, no leukocytosis -Lac-hydrin to be applied to bilateral legs bid -Topicort ordered: to be applied to feet bilateral bid -Advised patient to keep legs elevated at all times while at rest -Advised pt to get Sensifoot compression stockings that she may be able to tolerate more easily -Stable per podiatry -Will continue to follow <Drea Quinn - Last Filed: 08/20/16 16:40> Objective - Vital Signs/Intake and Output Vital Signs (last 24 hours): Temp Pulse Resp BP Pulse Ox 98.4 F 74 18 138/62 99 08/08/16 06:00 08/08/16 06:00 08/08/16 06:00 08/08/16 06:00 08/08/16 06:00 - Labs Labs: 08/07/16 07:00 08/07/16 07:00 Attending/Attestation - Attestation I have personally seen and examined this patient.: Yes I have fully participated in the care of the patient.: Yes I have reviewed all pertinent clinical information, including history, physical exam and plan: Yes
[2016-08-07] MEDS: Desoximetasone 0.25% Cream(15 gm) TOP SCH (17:59)
[2016-08-07 18:38] VITALS: RESP 18
[2016-08-08] MEDS: HYDROmorphone 1 mg/ml ISec IVP PRN ×2 (01:52→09:45)
[2016-08-08 08:09] VITALS: BP 138/62; PULSE 74; TEMP 98.4; O2SAT 99
[2016-08-08] MEDS: Pantoprazole 40 mg EC Tab PO SCH (09:45)
[2016-08-08] MEDS: Metoprolol Succinate 25 mg XL Tab PO SCH (09:45)
[2016-08-08] MEDS: Ammonium Lactate 12% Lotion (225 g) EXT SCH (09:48)
[2016-08-08] MEDS: Desoximetasone 0.25% Cream(15 gm) TOP SCH (09:48)
[2016-08-08] MEDS: Cefepime 1gm in NS 100ml 1 GM/100 ML BAG IVPB SCH (09:49)
[2016-08-08] MEDS: POLYETHYLENE GLYCOL 3350 17 GM/Dose PACKET PO SCH (09:49)
--- NOTE | 2016-08-08 13:47 | DS ---
The patient is discharged. The patient is seen and evaluated by the TCU nurses. The patient was evaluated and accepted to TCU. The patient was seen by the counseling case manager yesterday. The patient refused subacute rehabilitation despite physical therapy recommendation. The patient has not been able to much physical therapy during this hospitalization. The patient refuses to be out of bed to chair. The patient was not seen for therapy yesterday and today. The patient refuses to be out of bed to chair, refuses to ambulate because of the pain. The patient is seen lying in the bed in room 375, bed 2 with the patient' s nurse, Sri, at the bedside. The patient is lying in the bed, alert, awake, responsive, talking to the on the phone. PHYSICAL EXAMINATION: VITAL SIGNS: T-max 98.6, pulse 74-63-74, blood pressure 138/62, respirations 18 , O2 sat 96%-99%. INTAKE AND OUTPUT: Intake, 540 and 240 and 880 yesterday. Output 1200 plus 800 plus 130. Today's intake 470, output 400. HEAD: Normocephalic, atraumatic. HEENT: Shows pink conjunctivae, anicteric sclerae. No oropharyngeal lesion. NECK: No neck rigidity. CHEST: Kyphosis. LUNGS: Shows no rales, crackles, or wheezing. CARDIOVASCULAR: Shows S1, S2, regular rhythm. Questionable soft systolic murmur left sternal border, right second intercostal space. ABDOMEN: Obese, protuberant. GENITALIA: Female. RECTAL: Deferred. EXTREMITIES: Shows chronic skin changes of the lower extremity, trace swelling , no pitting edema of the lower extremity. MUSCULOSKELETAL: Shows elevated body mass index of 46.1. NEUROLOGIC: Cranial nerves II-XII limited. GAIT: Could not be tested as patient refused to be out of bed, refused to sit in the recliner. PSYCHIATRIC: Negative. DIAGNOSTICS: None from 08/08. Repeat urine cultures are negative. The patient seen by podiatry. FINAL IMPRESSION, PLAN, AND DISCHARGE DIAGNOSES: 1. Status post mechanical fall. 2. Severe gait dysfunction, deconditioning and bedridden status. 3. Questionable functional quadriplegia. 4. Intractable narcotic dependent pain syndrome. 5. Poor compliance. 6. Transient hypotension. 7. Anemia. 8. Thrombocytopenia. 9. Prerenal kidney injury. 10. Hypovitaminosis D. 11. Hypercholesterolemia. 12. Pansensitive Escherichia coli urinary tract infection with microscopic hematuria, pyuria, bacteriuria. 13. Stage II sacral decubitus ulceration, secondary to chronic bedridden status. 14. 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 15. Left knee medial and patellofemoral osteoarthritis. 16. Severe deconditioning. 17. Morbid obesity with elevated body mass index of 46. 18. Chronic microvascular ischemic disease of the brain. 19. 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 20. Chronic venous stasis dermatitis with bilateral lower extremity weakness secondary to intractable pain syndrome. 21. History of hypertension. 22. Transient episodic hypotension. 23. Transient hyperbilirubinemia. 24. Hypovitaminosis D. 25. History of hypertension, hypovitaminosis D, dyslipidemia, constipation, hyperuricemia. 1. Severe gait dysfunction and deconditioning. 2. Status post mechanical fall. 3. Intractable narcotic dependent pain syndrome. 4. Poor compliance. 5. Severe gait dysfunction with bedridden status versus functional quadriplegia. 6. Transient hypotension. 7. Anemia, thrombocytopenia. 8. Prerenal kidney injury. 9. Hypovitaminosis D. 10. Hypercholesterolemia. 11. Prerenal kidney injury. 12. Pansensitive Escherichia coli urinary tract infection with microscopic hematuria, pyuria, bacteriuria. 13. Stage II sacral decubitus ulceration. 14. 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 15. Left knee medial and patellofemoral osteoarthritis. 16. Severe deconditioning. 17. Status post mechanical fall. 18. Morbid obesity with body mass index of greater than 46. 19. Chronic microvascular ischemic disease of the brain. 20. 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 21. Chronic venous stasis dermatitis with bilateral lower extremity weakness secondary to intractable pain syndrome. 22. Pansensitive Escherichia coli urinary tract infection. 23. History of hypertension with transient episodic hypotension. 24. Normocytic anemia. 25. Thrombocytopenia. 26. Transient hyperbilirubinemia. 27. Hypovitaminosis D. 28. Intractable narcotic dependent pain syndrome and disorder. 29. Stage II sacral decubitus ulceration. 30. Poor compliance. 31. History of hypertension, hypovitaminosis D, dyslipidemia, constipation, hypovitaminosis D, hyperuricemia. 1. Status post mechanical fall. 2. Intractable narcotic dependent pain syndrome. 3. Poor compliance. 4. Severe gait dysfunction with bedridden status versus questionable functional quadriplegia. 5. History of hypertension. 6. Transient episodic hypotension. 7. Normocytic anemia. 8. Thrombocytopenia. 9. Prerenal kidney injury. 10. Transient hyperbilirubinemia. 11. Hypovitaminosis D. 12. Morbid obesity with elevated body mass index of 46.1. 13. Gram-negative nereida urinary tract infection with microscopic hematuria, pyuria, bacteriuria. 14. Chronic venous stasis of the lower extremities, chronic venous stasis skin changes of the lower extremities. 15. Status post mechanical fall. 16. Intractable narcotic dependent pain syndrome and disorder. 17. Stage II sacral decubitus ulceration. 18. Normocytic anemia. 19. Hyperbilirubinemia. 20. Severe osteoarthritis of the left hip. 21. Left knee osteoarthritis with medial and patellofemoral osteoarthritis of the left knee. 22. 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 23. History of hypertension, dyslipidemia. 24. History of chronic thrombocytopenia. 25. 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 26. Gram-negative nereida urinary tract infection. 1. Status post mechanical fall. 2. Probable ribcage contusion and leg pain and back pain. 3. Questionable intractable pain disorder and narcotic dependent pain syndrome. 4. Severe gait dysfunction. 5. Hypertension. 6. History of hypertension, normotension at present. 7. Stage II sacral decubitus ulceration. 8. Normocytic anemia with thrombocytopenia. 9. Mild prerenal kidney injury. 10. Hyperbilirubinemia. 11. Hypovitaminosis D. 12. History of dyslipidemia. 13. Microscopic hematuria, pyuria, bacteriuria. 14. Questionable urinary tract infection. 15. Severe osteoarthritis of the left hip. 16. Left knee osteoarthritis with medial and patellofemoral osteoarthritis of the left knee. 17. 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 18. Questionable urinary tract infection with microscopic hematuria, pyuria, bacteriuria. 1. Status post mechanical fall. 2. Probable ribcage contusion and leg pain. 3. History of hypertension. 4. Severe gait dysfunction. 5. Morbid obesity. 6. 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 7. Anemia. 8. Thrombocytopenia. 9. Mild prerenal kidney injury. 10. Mild rhabdomyolysis. 11. Questionable urinary tract infection with microscopic hematuria, pyuria, bacteriuria. 12. Chronic microvascular ischemic disease of the brain. 13. History of chronic thrombocytopenia. 14. 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 Severe gait dysfunction. 16. History of chronic narcotic-dependent pain syndrome, history of hypovitaminosis D, history of hypertension, history of hyperuricemia, history of dyslipidemia. At present, patient will be transferred to TCU as soon as the bed is available. The patient will also be requested orthopedic consultation with Dr. Domenic Thomas. At present, as mentioned, patient declined subacute rehab, which was recommended by physical therapy. The patient did not do much physical therapy during this stay. I have advised to the patient and the patient's extensively about patient's need for long-term physical therapy and possibly long-term placement in a skilled nursing. DISCHARGE MEDICATIONS: At the time of transfer to TCU: 1. Altace or ramipril 10 mg daily. 2. Dilaudid 1 mg IV q. 4 hours p.r.n. 3. Drisdol 50,000 units weekly. 4. Lac-Hydrin lotion to the affected legs daily. 5. Lipitor 10 mg daily. 6. Cefepime 1 gram IV q. 12. 7. MiraLax 17 g twice a day. 8. Prednisone 5 mg daily. 9. Protonix 40 mg daily. 10. Topicort 0.25% cream to both lower extremities twice a day. 11. Toprol-XL 25 mg daily. 12. Vitamin D3 2000 units daily. 13. Zofran 4 mg IV q. 4 p.r.n. 14. Allopurinol 100 mg daily. Healthy diet, out of the bed to chair, MARIANO stockings, SCDs, physical therapy, occupational therapy has been ordered. The patient will also be started on Duragesic patch for sustained pain relief. The patient will be ordered stool softeners with narcotics to prevent constipation. The patient is discharged to TCU after patient declined subacute rehabilitation. Time spent in the entire discharge process and explaining all details and going over medications, discharge process more than 45 minutes. Dictated and electronically signed, not read. Quinten Ashby MD cc: [id number] TT: 08/08/2016 13:47:02 en MTDD
--- NOTE | 2016-08-09 08:26 | PN ---
DATE: 08/08/2016 An 85-year-old female sitting at bedside for continued evaluation and management of venous stasis karina matitis to both lower legs. The patient cannot tolerate the stockings that were ordered as they are too tight and are causing her great pain. VITAL SIGNS: Reveals a temperature of 98.4, pulse rate of 74, blood pressure of 138/62, respiratory rate of 18. LABORATORY FINDINGS: Reveal a white count of 6.8, hemoglobin of 11.1, hematocrit of 33.7, platelet c ount of 92. OBJECTIVE: Weakly palpable dorsalis pedis pulse noted bilaterally and nonpalpable posterior tibial p ulses noted bilaterally. There is noted to be +2 nonpitting lower extremity edema. Temperature grad ient is reversed. Capillary filling time is delayed. Protective sensation is decreased using 5.07 g kenisha monofilament wire testing bilaterally. 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 There is no open lesion, no drainage, no ____ _, no malodor. No signs of ascending cellulitis. ASSESSMENT: An 85-year-old female with chronic venous stasis dermatitis and lower extremity weakness . PLAN: We will continue to apply the Topicort to both lower legs twice a day and she was told to elev ate both feet at all times when resting. She was told to get Sensifoot compression stockings upon di mena as they are a compression stocking but of the weakest compression available. The patient amber l be seen and followed daily. Wil Cerda DPM cc: [id number] TT: 08/08/2016 18:01:11 Confirmation # [id number] Dictation # [id number] [email or web address]
[2016-08-11] MEDS ORDERED: Ergocalciferol 50,000 Intl Units Cap PO SCH (10:00)
== END 2016-08-08 15:23 | DRG 91 ==
LOC: ED 12:52 → EROBSV 15:10 → OBSVTOIN 18:37 → ERH 18:37 → 3RSO 20:42
PROVIDERS: ADMIT Internal Medicine; ATTEND Internal Medicine
DX: R26.89 Other abnormalities of gait and mobility (principal); R53.2 Functional quadriplegia; L89.152 Pressure ulcer of sacral region, stage 2; M62.82 Rhabdomyolysis; D69.6 Thrombocytopenia, unspecified; F11.20 Opioid dependence, uncomplicated; Z68.42 Body mass index [BMI] 45.0-49.9, adult; I45.2 Bifascicular block; N39.0 Urinary tract infection, site not specified; E66.01 Morbid (severe) obesity due to excess calories; D64.9 Anemia, unspecified; I10 Essential (primary) hypertension; I87.2 Venous insufficiency (chronic) (peripheral); M47.816 Spondylosis without myelopathy or radiculopathy, lumbar region; E78.5 Hyperlipidemia, unspecified; E55.9 Vitamin D deficiency, unspecified; G89.4 Chronic pain syndrome; M62.81 Muscle weakness (generalized); M16.12 Unilateral primary osteoarthritis, left hip; M17.12 Unilateral primary osteoarthritis, left knee; E78.00 Pure hypercholesterolemia, unspecified; K59.00 Constipation, unspecified; E79.0 Hyperuricemia without signs of inflammatory arthritis and tophaceous disease; B96.20 Unspecified Escherichia coli [E. coli] as the cause of diseases classified elsewhere; Z91.19 Patient's noncompliance with other medical treatment and regimen; Z74.01 Bed confinement status; S20.20XA Contusion of thorax, unspecified, initial encounter; W01.0XXA Fall on same level from slipping, tripping and stumbling without subsequent striking against object, initial encounter; Y92.002 Bathroom of unspecified non-institutional (private) residence as the place of occurrence of the external cause

== ENCOUNTER 2016-08-08 15:35 | Inpatient (IN) | payer OTHER, MEDICARE ==
[2016-08-08 15:45] VITALS: BMI 40.7
[2016-08-08] MEDS ORDERED: HYDROmorphone 1 mg/ml ISec IVP PRN (15:54)
[2016-08-08] MEDS: Cefepime 1gm in NS 100ml 1 GM/100 ML BAG IVPB SCH (18:30)
[2016-08-08] MEDS: POLYETHYLENE GLYCOL 3350 17 GM/Dose PACKET PO SCH (18:32)
[2016-08-09] MEDS: Cefepime 1gm in NS 100ml 1 GM/100 ML BAG IVPB SCH ×2 (05:44→17:23)
[2016-08-09] MEDS: Pantoprazole 40 mg EC Tab PO SCH (05:50)
[2016-08-09] MEDS ORDERED: Pantoprazole 20 mg EC Tab PO SCH (06:30)
[2016-08-09] MEDS: Metoprolol Succinate 25 mg XL Tab PO SCH (07:54)
[2016-08-09] MEDS ORDERED: Non Formulary Medication (Prednisone [Rayos] 5 MG) PO SCH (08:00)
[2016-08-09] MEDS: Desoximetasone 0.05% Cream(60 gm) TOP SCH ×2 (10:26→17:19)
[2016-08-09] MEDS: POLYETHYLENE GLYCOL 3350 17 GM/Dose PACKET PO SCH ×2 (10:28→17:19)
[2016-08-09] MEDS: Ammonium Lactate 12% Cream (140 g) TOP SCH (10:28)
[2016-08-09] MEDS ORDERED: HYDROmorphone 0.5 mg/0.5 ml ISec IVP PRN (12:07)
--- NOTE | 2016-08-09 12:08 | CON ---
DATE: 08/09/2016 REASON FOR CONSULTATION: Status post fall with left hip pain. HISTORY OF PRESENT ILLNESS: This is an 85-year-old female with longstanding left hip pain who sustai eleazar a fall last Sunday. She said prior to the fall, she had a lot of difficulty walking because of the left lower extremity. She subsequently was admitted to the hospital for inability to ambulate a s well as a urinary tract infection. She is currently in the transitional care unit. She says that she really has not ambulated since she has been in the hospital because she feels that she is too wea k. PHYSICAL EXAMINATION: GENERAL: This is a female in no apparent distress. She is awake, alert and oriented x 3. She is ob enma. EXTREMITIES: Evaluation of the left lower extremity shows no gross deformity or swelling. Her thigh and calf are soft and nontender. She has limited active hip flexion, but is tolerating some gentle passive hip flexion. She does have some pain with passive internal and external rotation of her hip. No gross crepitus is appreciated about the femoral shaft. No obvious knee effusion is appreciated. No deformity or crepitus is appreciated about the left tibia. Grossly, she is neurovascularly inta ct. She is moving all her toes and is actively dorsiflexing and plantarflexing her ankle. She had an x-ray of the pelvis and hip. X-ray showed advanced degenerative changes. No obvious frac tures or dislocations were appreciated. IMPRESSION: Status post mechanical fall with left hip pain, left hip osteoarthritis. PLAN: At this point, I told her that she does have advanced degenerative changes and that her pain m ay be secondary to the arthritis. I did explain to her that ultimately x-rays cannot rule out an occ ult hip fracture and that an MRI would be more sensitive. She says she does not want an MRI. For no w, I recommended that she get some physical therapy for ambulation training with a walker. Should sh e continue having any worsening pain, advanced imaging studies such as a CAT scan or a bone scan may be warranted, although these are less sensitive for an occult hip fracture. Domenic Thomas MD cc: [id number] TT: 08/09/2016 12:07:39 Confirmation # [id number] Dictation # [id number]
--- NOTE | 2016-08-09 21:20 | HP ---
[facility] [address] [place] [address] Health Information Management History and Physical Report : [id number] Draft Patient: MIRA SCHMITT : 1930 Age/Sex: 85 / F Copied To: , Attending MD: Quinten Ashby MD HISTORY OF PRESENT ILLNESS: The patient is an 85-year-old morbidly obese female who came to the Emergency Room by [facility]. The patient stated that the patient fell in the bathroom, complaining of left arm and bilateral leg pain with chronic leg swelling. According to the ER physician evaluation the patient came to the Emergency Room after sustaining a fall in the bathroom about 2 hours ago. The patient also complained of diffuse diaphoresis and slipped while trying to use her walker and fell and fell on the left and hitting her ribcage and does not remember if she hit her head. The patient stated that she was on the floor for 25 minutes. The patient has been on chronic narcotic maintenance. CODE STATUS: Full code. LIVING WILL AND ADVANCED DIRECTIVE: None. ALLERGIES: None. Height is 5 feet 3. Weight is 260. BMI is 46. HOME MEDICATIONS: 1. Oxycodone 1 tab q. 6 hours p.r.n. 2. Vitamin D2 50,000 units weekly. 3. Protonix 40 mg daily. 4. Prednisone 5 mg daily. 5. Lopressor 25 mg daily. 6. Altace 10 mg daily. 7. Allopurinol 100 mg daily. 8. Ultram 50 mg q. 6 hours p.r.n. 9. Simvastatin 10 mg daily. SOCIAL HISTORY: Negative for smoking, negative for alcohol, negative for drug use, negative for communicable transmissible disease. MENSTRUAL HISTORY: The patient is postmenopausal. FAMILY HISTORY: Not available. PAST MEDICAL AND SURGICAL HISTORY: History of morbid obesity, history of gait dysfunction, history of chronic venous stasis of the lower extremity, history of degenerative joint disease and pain syndrome, history of hypovitaminosis D, history of hypertension, history of chronic thrombocytopenia, history of hyperuricemia, history of dyslipidemia. The patient's past medical history is also significant for chronic thrombocytopenia, history of hypovitaminosis D, history of poor compliance, history of microscopic hematuria. The patient's past medical history is significant for history of moderate to severe mitral annular calcification with normal ejection fraction on the echocardiogram done in 2014. The patient's past medical history is also significant for history of obesity, hypertension, thrombocytopenia, degenerative joint disease, history of osteoporosis, history of morbid obesity, history of right bundle branch, left anterior hemiblock, bifascicular block, history of L2 compression deformity, history of degenerative joint disease of the lumbar spine with disk bulge, history of urinary bladder diverticulum, history of right bundle branch block, bifascicular block, left anterior hemiblock, history of cerebral cortical atrophy of the brain, history of degenerative joint disease of the left hip, left sacroiliac joint, degenerative joint disease of the lumbar spine, history of diverticulosis, history of hypertension, history of thrombocytopenia, granulocytosis, history of acute kidney injury, history of probable urinary retention, history of noncompliance, history of moderate to severe mitral annular calcification, history of severe gait dysfunction secondary to morbid obesity, history of diverticulosis, history of cerebral cortical atrophy of the brain, history of lumbar multilevel degenerative disk disease of the spine with disk bulging, history of hypertension, history of mechanical fall, history of questionable urinary tract infection, history of elevated ESR and C-reactive protein, history of hyperuricemia, hypovitaminosis D, history of constipation, history of gait dysfunction, history of urinary bladder diverticulum, history of intractable back pain and hip pain, history of degenerative joint disease, history of morbid obesity. PHYSICAL EXAMINATION: VITAL SIGNS: T-max is 98.3. Heart rate 98, 89, 85, 75, blood pressure initially 131/54, 128/58, 114/50. Respirations 16, O2 sat 97-98%. HEAD: Normocephalic, atraumatic. HEENT: Pinkish, pale conjunctivae, anicteric sclerae. No oropharyngeal lesion. NECK: No neck rigidity. CHEST: Kyphosis. LUNGS: Show no rales, crackles, or wheezing. CARDIOVASCULAR: S1, S2, regular rhythm. Positive systolic murmur left sternal border, left second intercostal space: ABDOMEN: Soft, obese, positive bowel sounds. GENITALIA: Female. RECTAL: Deferred. EXTREMITIES: Show chronic discoloration of the lower extremity, chronic tense edema of the lower extremity. MUSCULOSKELETAL: Shows a body mass index of 46.1. Gait examination could not be tested. NEUROLOGIC: The patient is alert, awake, responsive, is able to move upper extremity, but patient has difficulty moving lower extremity because of the back pain and hip pain. PSYCHIATRIC: Negative for anxiety, depression. Negative for suicidal or homicidal ideation, negative for auditory or visual hallucinations. DIAGNOSTICS: WBC 9.1, hemoglobin and hematocrit 11.7 and 35.0, platelet 102. Sodium 141, potassium 4.3, chloride 105, CO2 28, anion gap 12, BUN 35, creatinine 1.0, GFR greater than 60, glucose 89, calcium 9.3, total bili 1.1. CPK 360. LFTs are normal. Urine pH 6.0, specific gravity 1.025, small blood, nitrite positive, moderate leukocyte esterase, WBC 15-20, bacteria many. CT of the head done in the Emergency Room was negative for bleed; chronic microvascular ischemic disease of the brain. EKG done in the Emergency Room shows sinus rhythm, left anterior hemiblock, right bundle branch block, bifascicular block. The patient was seen in the Emergency Room by Dr. Brown. The patient refused pain medication and continues to be in pain. The patient stated that she took her OxyContin. The patient has requested to be kept in the hospital. The stated that she was unable to ambulate and the patient has an elderly at home without any help and there is nobody to take care of her. The patient was found to be unsafe discharge by Dr. Brown because of the pain, difficulty walking, difficulty ambulation and the patient was placed in ER OBS and then medical observation. IMPRESSION: 1. Status post mechanical fall. 2. Probable ribcage contusion and leg pain. 3. History of hypertension. 4. Severe gait dysfunction. 5. Morbid obesity. 6. 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 7. Anemia. 8. Thrombocytopenia. 9. Mild prerenal kidney injury. 10. Mild rhabdomyolysis. 11. Questionable urinary tract infection with microscopic hematuria, pyuria, bacteriuria. 12. Chronic microvascular ischemic disease of the brain. 13. History of chronic thrombocytopenia. 14. 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 Severe gait dysfunction. 16. History of chronic narcotic-dependent pain syndrome, history of hypovitaminosis D, history of hypertension, history of hyperuricemia, history of dyslipidemia. PLAN: At this time, patient was found to be an unsafe discharge because of severe gait dysfunction and fall and decreased ambulation. The patient requested to be placed in a rehab. The patient has been ordered repeat labs. Lipid panel, thyroid panel, vitamin D, repeat labs ordered for the morning. Urine culture ordered. The patient has been ordered pelvis and knee x-rays, reports are pending. Consultation with podiatry has been ordered. The patient is resumed on most of the home medications. The patient was started on cefepime 1 gram IV q. 12, MiraLax 17 g twice a day, Altace 10 mg daily, Drisdol 50,000 weekly. The patient received a dose of Levaquin 500 IV in the Emergency Room. Lipitor 10 mg daily, cefepime 1 gram IV q. 12, MiraLax 17 g twice a day, oxycodone 10 mg q. 6 p.r.n., prednisone 5 mg daily, Protonix 40 daily, Toprol-XL 25 mg daily, Ultram 50 mg q. 6 p.r.n., allopurinol 100 mg daily. Out of bed has been ordered. Physical therapy, ambulation therapy ordered. The patient will be started on some gentle IV fluid hydration because of prerenal kidney injury. At present, the patient is awaiting for a bed. The patient's case will be referred for discharge planning. Occupational therapy will be ordered. The patient has been advised very extensively about possible long-term placement as patient has no help at home and the patient has an elderly . The patient is admitted to transitional care unit from acute floor for rehab and continuation of IV antibiotic. The patient is seen in room 322, bed 1. The patient is being seen sitting up in the bed. The patient is being assisted by physical therapy for ambulation and gait training. The patient is alert, awake, responsive. Does not appear to be in any distress, but continues and keeps repeating "I cannot walk, I cannot walk, I cannot walk." The patient was given extensive positivity enforcement. The patient was encouraged to ambulate. The patient was encouraged to be out of bed. The patient was encouraged to cooperate with physical therapy, occupational therapy, etc. REVIEW OF SYSTEMS: Thirteen-system review was done, positive and negative dictated above. CODE STATUS: Full code. LIVING WILL AND ADVANCED DIRECTIVE: None. PHYSICAL EXAMINATION: GENERAL: The patient is seen in room 322, bed 1. VITAL SIGNS: Blood pressure 138/84, pulse 78, respirations 18, T-max is afebrile, O2 sat 96%-97%. GENERAL: The patient is seen again sitting up in the bed in room 322, bed 1 with physical therapist at bedside. HEAD: Normocephalic, atraumatic. HEENT: Shows pinkish conjunctivae, anicteric sclerae. No oropharyngeal lesion. NECK: No neck rigidity. CHEST: Kyphosis. LUNGS: Shows no rales, crackles, or wheezing. CARDIOVASCULAR: S1, S2, regular rhythm. Questionable soft systolic murmur left sternal border, left second intercostal space. ABDOMEN: Protuberant, morbidly obese. GENITALIA: Female. Positive Hernandez catheter. EXTREMITIES: Shows chronic skin changes of the lower extremity. No pitting edema was noted. MUSCULOSKELETAL: Shows elevated body mass index. Cranial nerves II-XII limited. Gait examination is assisted. The patient is being assisted from a sitting to lying position to sitting position by physical therapy. Gait examination as per the physical therapist. NEUROLOGIC: The patient is alert, awake, responsive, is able to move upper and lower extremity without assistance. Gait examination could not be tested. DIAGNOSTICS: None from today. ADMISSION IMPRESSION & PLAN: 1. Status post mechanical fall. 2. Severe gait dysfunction and deconditioning. 3. Bedridden status. 4. Functional quadriplegia. 5. Noncardiac dependent chronic pain syndrome. 6. Severe osteoarthritis of the left hip. 7. Morbid obesity. 8. History of hypertension. 9. Pansensitive Escherichia coli urinary tract infection. 10. Hypertension. 11. Thrombocytopenia. 12. Anemia. 13. Hypouricemia. 14. 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 15. Poor compliance. 1. Status post mechanical fall. 2. Severe gait dysfunction, deconditioning and bedridden status. 3. Questionable functional quadriplegia. 4. Intractable narcotic dependent pain syndrome. 5. Poor compliance. 6. Transient hypotension. 7. Anemia. 8. Thrombocytopenia. 9. Prerenal kidney injury. 10. Hypovitaminosis D. 11. Hypercholesterolemia. 12. Pansensitive Escherichia coli urinary tract infection with microscopic hematuria, pyuria, bacteriuria. 13. Stage II sacral decubitus ulceration, secondary to chronic bedridden status. 14. 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 15. Left knee medial and patellofemoral osteoarthritis. 16. Severe deconditioning. 17. Morbid obesity with elevated body mass index of 46. 18. Chronic microvascular ischemic disease of the brain. 19. 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 20. Chronic venous stasis dermatitis with bilateral lower extremity weakness secondary to intractable pain syndrome. 21. History of hypertension. 22. Transient episodic hypotension. 23. Transient hyperbilirubinemia. 24. Hypovitaminosis D. 25. History of hypertension, hypovitaminosis D, dyslipidemia, constipation, hyperuricemia. 1. Severe gait dysfunction and deconditioning. 2. Status post mechanical fall. 3. Intractable narcotic dependent pain syndrome. 4. Poor compliance. 5. Severe gait dysfunction with bedridden status versus functional quadriplegia. 6. Transient hypotension. 7. Anemia, thrombocytopenia. 8. Prerenal kidney injury. 9. Hypovitaminosis D. 10. Hypercholesterolemia. 11. Prerenal kidney injury. 12. Pansensitive Escherichia coli urinary tract infection with microscopic hematuria, pyuria, bacteriuria. 13. Stage II sacral decubitus ulceration. 14. 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 15. Left knee medial and patellofemoral osteoarthritis. 16. Severe deconditioning. 17. Status post mechanical fall. 18. Morbid obesity with body mass index of greater than 46. 19. Chronic microvascular ischemic disease of the brain. 20. 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 21. Chronic venous stasis dermatitis with bilateral lower extremity weakness secondary to intractable pain syndrome. 22. Pansensitive Escherichia coli urinary tract infection. 23. History of hypertension with transient episodic hypotension. 24. Normocytic anemia. 25. Thrombocytopenia. 26. Transient hyperbilirubinemia. 27. Hypovitaminosis D. 28. Intractable narcotic dependent pain syndrome and disorder. 29. Stage II sacral decubitus ulceration. 30. Poor compliance. 31. History of hypertension, hypovitaminosis D, dyslipidemia, constipation, hypovitaminosis D, hyperuricemia. 1. Status post mechanical fall. 2. Intractable narcotic dependent pain syndrome. 3. Poor compliance. 4. Severe gait dysfunction with bedridden status versus questionable functional quadriplegia. 5. History of hypertension. 6. Transient episodic hypotension. 7. Normocytic anemia. 8. Thrombocytopenia. 9. Prerenal kidney injury. 10. Transient hyperbilirubinemia. 11. Hypovitaminosis D. 12. Morbid obesity with elevated body mass index of 46.1. 13. Gram-negative nereida urinary tract infection with microscopic hematuria, pyuria, bacteriuria. 14. Chronic venous stasis of the lower extremities, chronic venous stasis skin changes of the lower extremities. 15. Status post mechanical fall. 16. Intractable narcotic dependent pain syndrome and disorder. 17. Stage II sacral decubitus ulceration. 18. Normocytic anemia. 19. Hyperbilirubinemia. 20. Severe osteoarthritis of the left hip. 21. Left knee osteoarthritis with medial and patellofemoral osteoarthritis of the left knee. 22. 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 23. History of hypertension, dyslipidemia. 24. History of chronic thrombocytopenia. 25. 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 26. Gram-negative nereida urinary tract infection. 1. Status post mechanical fall. 2. Probable ribcage contusion and leg pain and back pain. 3. Questionable intractable pain disorder and narcotic dependent pain syndrome. 4. Severe gait dysfunction. 5. Hypertension. 6. History of hypertension, normotension at present. 7. Stage II sacral decubitus ulceration. 8. Normocytic anemia with thrombocytopenia. 9. Mild prerenal kidney injury. 10. Hyperbilirubinemia. 11. Hypovitaminosis D. 12. History of dyslipidemia. 13. Microscopic hematuria, pyuria, bacteriuria. 14. Questionable urinary tract infection. 15. Severe osteoarthritis of the left hip. 16. Left knee osteoarthritis with medial and patellofemoral osteoarthritis of the left knee. 17. 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 18. Questionable urinary tract infection with microscopic hematuria, pyuria, bacteriuria. 1. Status post mechanical fall. 2. Probable ribcage contusion and leg pain. 3. History of hypertension. 4. Severe gait dysfunction. 5. Morbid obesity. 6. 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 7. Anemia. 8. Thrombocytopenia. 9. Mild prerenal kidney injury. 10. Mild rhabdomyolysis. 11. Questionable urinary tract infection with microscopic hematuria, pyuria, bacteriuria. 12. Chronic microvascular ischemic disease of the brain. 13. History of chronic thrombocytopenia. 14. 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 Severe gait dysfunction. 16. History of chronic narcotic-dependent pain syndrome, history of hypovitaminosis D, history of hypertension, history of hyperuricemia, history of dyslipidemia. PLAN: At this time, patient is to be resumed on all the medications as per the MAR from the . The patient has been ordered physical therapy, occupational therapy. The patient has been ordered out of bed, ambulation. The patient has been ordered and encouraged to be out of bed to chair. The patient has been advised to cooperate with physical therapy, occupational therapy. The patient was again today updated about her condition, diagnosis, test results, recommendation by all physicians involved in the care of the patient. The patient was seen by orthopedic, Dr. Thomas. He has evaluated the patient , has recommended further diagnostic and therapeutic intervention. Orthopedics recommend getting either an MRI or CAT scan of the hip. The patient refuses MRI of the hip because of the elevated body mass index and claustrophobia. The patient is now ordered a CT of the hip to evaluate for any occult fracture and to assess the severity of the osteoarthritis of the hip. Depending upon those, further orthopedic management will be offered by Dr. Thomas. Dictated and electronically signed, not read. Quinten Ashby MD cc: [id number] TT: 08/09/2016 21:19:50 himanshu [email or web address]
[2016-08-10] MEDS: Cefepime 1gm in NS 100ml 1 GM/100 ML BAG IVPB SCH ×2 (05:50→17:26)
[2016-08-10] MEDS: Pantoprazole 40 mg EC Tab PO SCH (05:51)
[2016-08-10] MEDS: Metoprolol Succinate 25 mg XL Tab PO SCH (08:37)
[2016-08-10] MEDS: Ammonium Lactate 12% Cream (140 g) TOP SCH (09:26)
[2016-08-10] MEDS: Desoximetasone 0.05% Cream(60 gm) TOP SCH ×2 (09:26→17:26)
[2016-08-10] MEDS: POLYETHYLENE GLYCOL 3350 17 GM/Dose PACKET PO SCH ×2 (09:26→17:26)
--- NOTE | 2016-08-10 09:49 | CP.PCM.PN ---
<Bita Silva - Last Filed: 08/10/16 09:45> Subjective - Date & Time of Evaluation Date of Evaluation: 08/10/16 Time of Evaluation: 09:00 - Subjective Subjective: 85 yo female patient seen at beside with Dr. Quinn today for f/u of venous stasis dermatitis of bilateral legs. Pt seen resting comfortably in bed at time of visit. Says legs and feet are feeling much better with the creams. Denies any pain or discomfort to the lower extremities at this time. Denies any other pedal complaints today. Objective - Vital Signs/Intake and Output Vital Signs (last 24 hours): Temp Pulse Resp BP Pulse Ox 98.6 F 63 18 132/79 98 08/09/16 16:00 08/10/16 08:37 08/09/16 16:00 08/10/16 08:37 08/09/16 10:00 Intake and Output: 08/10/16 08/10/16 06:59 18:59 Output Total 1450 Balance -1450 - Medications Medications: Current Medications Allopurinol (Zyloprim) 100 mg PO DAILY [facility] PRN Reason: Protocol Last Admin: 08/10/16 09:27 Dose: 100 mg Atorvastatin Calcium (Lipitor) 10 mg PO DIN [facility] Last Admin: 08/09/16 17:19 Dose: 10 mg Cholecalciferol (Vitamin D) 2,000 iu PO DAILY [facility] PRN Reason: Protocol Last Admin: 08/10/16 09:27 Dose: 2,000 iu Desoximetasone (Topicort 0.05%) 0 ea TOP BID [facility] PRN Reason: Protocol Last Admin: 08/10/16 09:26 Dose: 1 applic Docusate Sodium (Colace) 100 mg PO TID [facility] PRN Reason: Protocol Last Admin: 08/10/16 09:26 Dose: 100 mg Ergocalciferol (Drisdol 50,000 Intl Units Cap) 1 cap PO QWK [facility] PRN Reason: Protocol Fentanyl (Duragesic) 1 patch TD Q72H [facility] Hydromorphone HCl (Dilaudid) 0.5 mg IVP Q6H PRN PRN Reason: Pain, moderate (4-7) Cefepime HCl (Maxipime 1gm) 1 gm in 100 mls @ 100 mls/hr IVPB 0600,1800 [facility] PRN Reason: Protocol Last Admin: 08/10/16 05:50 Dose: 100 mls/hr Lactic Acid (Lac-Hydrin 12% Cream (140 G)) 0 ea TOP DAILY [facility] PRN Reason: Protocol Last Admin: 08/10/16 09:26 Dose: 1 applic Metoprolol Succinate (Toprol Xl) 25 mg PO 0800 [facility] PRN Reason: Protocol Last Admin: 08/10/16 08:37 Dose: 25 mg Ondansetron HCl (Zofran Inj) 4 mg IVP Q4H PRN PRN Reason: Nausea/Vomiting Pantoprazole Sodium (Protonix Ec Tab) 40 mg PO 0630 [facility] PRN Reason: Protocol Last Admin: 08/10/16 05:51 Dose: 40 mg Polyethylene Glycol (Miralax) 17 gm PO BID [facility] Last Admin: 08/10/16 09:26 Dose: Not Given Prednisone (Prednisone Tab) 5 mg PO 0800 [facility] Last Admin: 08/10/16 08:36 Dose: 5 mg Ramipril (Altace) 10 mg PO DAILY [facility] Last Admin: 08/10/16 09:26 Dose: 10 mg - Constitutional Appears: Non-toxic, No Acute Distress - Extremities Exam Additional comments: Bilateral lower extremity exam: Vasc: DP pulses faintly palpable bl, PT pulses nonpalpable bl, 2+ pitting edema noted to lower extremity bl, skin temp runs warm to cool, cap refill time <4 sec to digits x 10 Derm: no open lesions, no drainage, no erythema, there are chronic changes to the skin bilateral consistent with venous stasis dermatitis, no fluctuance, no malodor Neuro: pedal sensation is decreased bl - Neurological Exam Neurological Exam: Alert, Awake, Oriented x3 - Psychiatric Exam Psychiatric exam: Normal Affect, Normal Mood Assessment and Plan - Assessment and Plan (Free Text) Assessment: 85 yo female with chronic venous stasis induced dermatitis, lower extremity weakness Plan: -Pt S&E at bedside with Dr. Quinn present -Chart, labs, vitals reviewed -c/w with application of lachydrin to legs bid and topicort to feet bid -Advised pt to c/w elevation of legs at all times while at rest. -Tubigrip stockings to be ordered, may remove at nighttime for bed -Stable per podiatry, she is to f/u with Dr. Quinn at wound care center -Podiatry to sign off at this time, please re-consult as needed. <Drea Quinn - Last Filed: 08/20/16 16:46> Objective - Vital Signs/Intake and Output Vital Signs (last 24 hours): Temp Pulse Resp BP Pulse Ox 98.1 F 77 16 155/72 H 99 08/15/16 10:00 08/15/16 10:00 08/15/16 10:00 08/15/16 10:00 08/15/16 10:00 - Labs Labs: 08/14/16 05:30 08/14/16 05:30 Attending/Attestation - Attestation I have personally seen and examined this patient.: Yes I have fully participated in the care of the patient.: Yes I have reviewed all pertinent clinical information, including history, physical exam and plan: Yes
[2016-08-10] MEDS ORDERED: HYDROmorphone 0.5 mg/0.5 ml ISec IVP PRN (10:21)
--- NOTE | 2016-08-10 19:20 | PN ---
DATE: 08/10/2016 HISTORY OF PRESENT ILLNESS: The patient is seen lying in the bed. The patient is alert, awake, responsive. The patient states that since the Duragesic patches started, patient's pain in the hips is significantly less. The patient is requesting IV Dilaudid not as often as ordered. The patient is seen lying in the bed. Overnight nurse's notes were reviewed. PHYSICAL EXAMINATION: GENERAL: The patient appears to be comfortable, in no distress. VITAL SIGNS: T-max afebrile, heart rate 78-84, blood pressure 138/78-130/84. Respirations 18-20. HEAD: Normocephalic, atraumatic. HEENT: Shows pinkish conjunctivae. Anicteric sclerae. No oropharyngeal lesion. NECK: No neck rigidity. CHEST: Symmetric. LUNGS: Shows no rales, crackles, or wheezing. CARDIOVASCULAR: S1, S2, regular rhythm. LUNGS: No rales, crackles, or wheezing. ABDOMEN: Obese, positive bowel sounds. GENITALIA: Female. Positive Hernandez catheter. EXTREMITIES: Shows decreasing discoloration of the bilateral lower extremities , no pitting edema, trace swelling noted. No calf tenderness was noted. The patient has some weakness of the lower extremities because of the back pain and hip pain. MUSCULOSKELETAL: Shows an elevated body mass index and obese patient. GAIT: Not tested. DIAGNOSTICS: The patient had a CAT scan of the hips and pelvis done, which shows severe osteoarthritis of both hips, left more than the right, with degenerative joint disease. LABORATORY AND DIAGNOSTIC DATA: None. IMPRESSION AND PLAN: 1. Severe deconditioning. 2. Severe gait dysfunction. 3. Status post mechanical fall. 4. Severe osteoarthritis of the hips, left more than the right, involving severe gait dysfunction and deconditioning. 5. Chronic narcotic dependent pain syndrome. 6. Morbid obesity. 7. History of hypertension, history of thrombocytopenia. 8. Normocytic anemia. 9. Pansensitive Escherichia coli urinary tract infection. 10. Hypovitaminosis D. 11. Dyslipidemia. 12. Hypertension. 13. History of poor compliance. 14. Possible functional quadriplegia. 1. Status post mechanical fall. 2. Severe gait dysfunction and deconditioning. 3. Bedridden status. 4. Functional quadriplegia. 5. Noncardiac dependent chronic pain syndrome. 6. Severe osteoarthritis of the left hip. 7. Morbid obesity. 8. History of hypertension. 9. Pansensitive Escherichia coli urinary tract infection. 10. Hypertension. 11. Thrombocytopenia. 12. Anemia. 13. Hypouricemia. 14. 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 15. Poor compliance. 1. Status post mechanical fall. 2. Severe gait dysfunction, deconditioning and bedridden status. 3. Questionable functional quadriplegia. 4. Intractable narcotic dependent pain syndrome. 5. Poor compliance. 6. Transient hypotension. 7. Anemia. 8. Thrombocytopenia. 9. Prerenal kidney injury. 10. Hypovitaminosis D. 11. Hypercholesterolemia. 12. Pansensitive Escherichia coli urinary tract infection with microscopic hematuria, pyuria, bacteriuria. 13. Stage II sacral decubitus ulceration, secondary to chronic bedridden status. 14. 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 15. Left knee medial and patellofemoral osteoarthritis. 16. Severe deconditioning. 17. Morbid obesity with elevated body mass index of 46. 18. Chronic microvascular ischemic disease of the brain. 19. 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 20. Chronic venous stasis dermatitis with bilateral lower extremity weakness secondary to intractable pain syndrome. 21. History of hypertension. 22. Transient episodic hypotension. 23. Transient hyperbilirubinemia. 24. Hypovitaminosis D. 25. History of hypertension, hypovitaminosis D, dyslipidemia, constipation, hyperuricemia. 1. Severe gait dysfunction and deconditioning. 2. Status post mechanical fall. 3. Intractable narcotic dependent pain syndrome. 4. Poor compliance. 5. Severe gait dysfunction with bedridden status versus functional quadriplegia. 6. Transient hypotension. 7. Anemia, thrombocytopenia. 8. Prerenal kidney injury. 9. Hypovitaminosis D. 10. Hypercholesterolemia. 11. Prerenal kidney injury. 12. Pansensitive Escherichia coli urinary tract infection with microscopic hematuria, pyuria, bacteriuria. 13. Stage II sacral decubitus ulceration. 14. 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 15. Left knee medial and patellofemoral osteoarthritis. 16. Severe deconditioning. 17. Status post mechanical fall. 18. Morbid obesity with body mass index of greater than 46. 19. Chronic microvascular ischemic disease of the brain. 20. 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 21. Chronic venous stasis dermatitis with bilateral lower extremity weakness secondary to intractable pain syndrome. 22. Pansensitive Escherichia coli urinary tract infection. 23. History of hypertension with transient episodic hypotension. 24. Normocytic anemia. 25. Thrombocytopenia. 26. Transient hyperbilirubinemia. 27. Hypovitaminosis D. 28. Intractable narcotic dependent pain syndrome and disorder. 29. Stage II sacral decubitus ulceration. 30. Poor compliance. 31. History of hypertension, hypovitaminosis D, dyslipidemia, constipation, hypovitaminosis D, hyperuricemia. 1. Status post mechanical fall. 2. Intractable narcotic dependent pain syndrome. 3. Poor compliance. 4. Severe gait dysfunction with bedridden status versus questionable functional quadriplegia. 5. History of hypertension. 6. Transient episodic hypotension. 7. Normocytic anemia. 8. Thrombocytopenia. 9. Prerenal kidney injury. 10. Transient hyperbilirubinemia. 11. Hypovitaminosis D. 12. Morbid obesity with elevated body mass index of 46.1. 13. Gram-negative nereida urinary tract infection with microscopic hematuria, pyuria, bacteriuria. 14. Chronic venous stasis of the lower extremities, chronic venous stasis skin changes of the lower extremities. 15. Status post mechanical fall. 16. Intractable narcotic dependent pain syndrome and disorder. 17. Stage II sacral decubitus ulceration. 18. Normocytic anemia. 19. Hyperbilirubinemia. 20. Severe osteoarthritis of the left hip. 21. Left knee osteoarthritis with medial and patellofemoral osteoarthritis of the left knee. 22. 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 23. History of hypertension, dyslipidemia. 24. History of chronic thrombocytopenia. 25. 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 26. Gram-negative nereida urinary tract infection. 1. Status post mechanical fall. 2. Probable ribcage contusion and leg pain and back pain. 3. Questionable intractable pain disorder and narcotic dependent pain syndrome. 4. Severe gait dysfunction. 5. Hypertension. 6. History of hypertension, normotension at present. 7. Stage II sacral decubitus ulceration. 8. Normocytic anemia with thrombocytopenia. 9. Mild prerenal kidney injury. 10. Hyperbilirubinemia. 11. Hypovitaminosis D. 12. History of dyslipidemia. 13. Microscopic hematuria, pyuria, bacteriuria. 14. Questionable urinary tract infection. 15. Severe osteoarthritis of the left hip. 16. Left knee osteoarthritis with medial and patellofemoral osteoarthritis of the left knee. 17. 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 18. Questionable urinary tract infection with microscopic hematuria, pyuria, bacteriuria. 1. Status post mechanical fall. 2. Probable ribcage contusion and leg pain. 3. History of hypertension. 4. Severe gait dysfunction. 5. Morbid obesity. 6. 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 7. Anemia. 8. Thrombocytopenia. 9. Mild prerenal kidney injury. 10. Mild rhabdomyolysis. 11. Questionable urinary tract infection with microscopic hematuria, pyuria, bacteriuria. 12. Chronic microvascular ischemic disease of the brain. 13. History of chronic thrombocytopenia. 14. 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 Severe gait dysfunction. 16. History of chronic narcotic-dependent pain syndrome, history of hypovitaminosis D, history of hypertension, history of hyperuricemia, history of dyslipidemia. PLAN: At this time, patient is to be continued on the transitional care unit with physical therapy, occupational therapy. The patient has been ordered out of bed to chair. The patient will be reevaluated by orthopedics regarding further management about her hip pain and management regarding osteoarthritis of the hips. The patient's medications will be continued as per MAY. The patient, at present, will be continue on above therapeutic intervention. In addition, the plan at this time is that the Duragesic patch will be increased to 50 mcg q.72 hours and IV Dilaudid will be decreased to 0.5 mg IV q. 8 hours or q. 12 hours. Other medications as per MAY. Quinten Ashby MD cc: [id number] TT: 08/10/2016 19:19:15 Confirmation # [id number] Dictation # [id number] ln MTDD
[2016-08-11] MEDS: Cefepime 1gm in NS 100ml 1 GM/100 ML BAG IVPB SCH ×2 (06:10→18:53)
[2016-08-11] MEDS: Pantoprazole 40 mg EC Tab PO SCH (06:43)
[2016-08-11] MEDS: Metoprolol Succinate 25 mg XL Tab PO SCH (08:51)
[2016-08-11] MEDS: Ammonium Lactate 12% Cream (140 g) TOP SCH (10:41)
[2016-08-11] MEDS: POLYETHYLENE GLYCOL 3350 17 GM/Dose PACKET PO SCH ×2 (10:41→17:30)
[2016-08-11] MEDS: Desoximetasone 0.05% Cream(60 gm) TOP SCH ×2 (10:42→17:31)
--- NOTE | 2016-08-11 11:18 | PN ---
DATE: 08/11/2016 The patient is seen lying in the bed in room 322, bed 1. The patient appears to be in much less pain. The patient does report significantly less pain. According to the nurses, patient is participating more in physical therapy. The patient did physical therapy yesterday. The patient did 10 feet of ambulation with rolling walker, 5 feet x 2, with moderate assistance. PHYSICAL EXAMINATION: VITAL SIGNS: T-max 97.1, heart rate 60-91, blood pressure 142/72, 132/79, 111/ 61, respiration 14, O2 sat 98%. HEAD: Normocephalic, atraumatic. HEENT: Shows pinkish, pale conjunctivae, anicteric sclerae, no oropharyngeal lesion. NECK: No neck rigidity. Soft carotid bruit. CHEST: Kyphosis. LUNGS: Shows no rales, crackles, or wheezing. CARDIOVASCULAR: Shows S1, S2, regular rhythm. Questionable soft systolic murmur right second intercostal space, left sternal border, left second intercostal space. ABDOMEN: Protuberant. Positive bowel sounds. GENITALIA: Female. Positive Hernandez catheter. EXTREMITIES: Shows chronic decreased discoloration of the bilateral lower extremity skin discoloration, decreasing chronic bilateral venous stasis dermatitis. No pitting edema. Trace swelling of the lower extremity. VASCULAR: Palpable pulses. PSYCHIATRIC: Negative for anxiety, depression. Negative for auditory or visual hallucination. Negative for suicidal or homicidal ideation. The patient's CAT scan of the hips was reviewed. IMPRESSION AND PLAN: 1. Severe deconditioning and gait dysfunction. 2. Possible functional quadriplegia. 3. Status post mechanical fall. 4. Severe left hip osteoarthritis with flattening of the femoral head with multiple osteophytes and complete loss of the joint space. 5. Moderate to severe degenerative joint disease of the right hip with joint space narrowing. 6. Morbid obesity. 7. Hypertension. 8. Escherichia coli urinary tract infection. 9. History of hypertension. 10. Constipation. 11. Hypovitaminosis D. 12. Chronic narcotic dependent pain syndrome. 13. Dyslipidemia. 14. Thrombocytopenia. 15. Hypovitaminosis D. 16. Hyperuricemia. 17. Intractable narcotic dependent pain syndrome (resolving). 18. Poor compliance. 19. Pansensitive Escherichia coli urinary tract infection with pyuria, bacteriuria. 20. Stage II sacral decubitus ulceration, secondary to chronic bedridden status. 21. 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 1. Severe deconditioning. 2. Severe gait dysfunction. 3. Status post mechanical fall. 4. Severe osteoarthritis of the hips, left more than the right, involving severe gait dysfunction and deconditioning. 5. Chronic narcotic dependent pain syndrome. 6. Morbid obesity. 7. History of hypertension, history of thrombocytopenia. 8. Normocytic anemia. 9. Pansensitive Escherichia coli urinary tract infection. 10. Hypovitaminosis D. 11. Dyslipidemia. 12. Hypertension. 13. History of poor compliance. 14. Possible functional quadriplegia. 1. Status post mechanical fall. 2. Severe gait dysfunction and deconditioning. 3. Bedridden status. 4. Functional quadriplegia. 5. Noncardiac dependent chronic pain syndrome. 6. Severe osteoarthritis of the left hip. 7. Morbid obesity. 8. History of hypertension. 9. Pansensitive Escherichia coli urinary tract infection. 10. Hypertension. 11. Thrombocytopenia. 12. Anemia. 13. Hypouricemia. 14. 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 15. Poor compliance. 1. Status post mechanical fall. 2. Severe gait dysfunction, deconditioning and bedridden status. 3. Questionable functional quadriplegia. 4. Intractable narcotic dependent pain syndrome. 5. Poor compliance. 6. Transient hypotension. 7. Anemia. 8. Thrombocytopenia. 9. Prerenal kidney injury. 10. Hypovitaminosis D. 11. Hypercholesterolemia. 12. Pansensitive Escherichia coli urinary tract infection with microscopic hematuria, pyuria, bacteriuria. 13. Stage II sacral decubitus ulceration, secondary to chronic bedridden status. 14. 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 15. Left knee medial and patellofemoral osteoarthritis. 16. Severe deconditioning. 17. Morbid obesity with elevated body mass index of 46. 18. Chronic microvascular ischemic disease of the brain. 19. 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 20. Chronic venous stasis dermatitis with bilateral lower extremity weakness secondary to intractable pain syndrome. 21. History of hypertension. 22. Transient episodic hypotension. 23. Transient hyperbilirubinemia. 24. Hypovitaminosis D. 25. History of hypertension, hypovitaminosis D, dyslipidemia, constipation, hyperuricemia. 1. Severe gait dysfunction and deconditioning. 2. Status post mechanical fall. 3. Intractable narcotic dependent pain syndrome. 4. Poor compliance. 5. Severe gait dysfunction with bedridden status versus functional quadriplegia. 6. Transient hypotension. 7. Anemia, thrombocytopenia. 8. Prerenal kidney injury. 9. Hypovitaminosis D. 10. Hypercholesterolemia. 11. Prerenal kidney injury. 12. Pansensitive Escherichia coli urinary tract infection with microscopic hematuria, pyuria, bacteriuria. 13. Stage II sacral decubitus ulceration. 14. 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 15. Left knee medial and patellofemoral osteoarthritis. 16. Severe deconditioning. 17. Status post mechanical fall. 18. Morbid obesity with body mass index of greater than 46. 19. Chronic microvascular ischemic disease of the brain. 20. 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 21. Chronic venous stasis dermatitis with bilateral lower extremity weakness secondary to intractable pain syndrome. 22. Pansensitive Escherichia coli urinary tract infection. 23. History of hypertension with transient episodic hypotension. 24. Normocytic anemia. 25. Thrombocytopenia. 26. Transient hyperbilirubinemia. 27. Hypovitaminosis D. 28. Intractable narcotic dependent pain syndrome and disorder. 29. Stage II sacral decubitus ulceration. 30. Poor compliance. 31. History of hypertension, hypovitaminosis D, dyslipidemia, constipation, hypovitaminosis D, hyperuricemia. 1. Status post mechanical fall. 2. Intractable narcotic dependent pain syndrome. 3. Poor compliance. 4. Severe gait dysfunction with bedridden status versus questionable functional quadriplegia. 5. History of hypertension. 6. Transient episodic hypotension. 7. Normocytic anemia. 8. Thrombocytopenia. 9. Prerenal kidney injury. 10. Transient hyperbilirubinemia. 11. Hypovitaminosis D. 12. Morbid obesity with elevated body mass index of 46.1. 13. Gram-negative nereida urinary tract infection with microscopic hematuria, pyuria, bacteriuria. 14. Chronic venous stasis of the lower extremities, chronic venous stasis skin changes of the lower extremities. 15. Status post mechanical fall. 16. Intractable narcotic dependent pain syndrome and disorder. 17. Stage II sacral decubitus ulceration. 18. Normocytic anemia. 19. Hyperbilirubinemia. 20. Severe osteoarthritis of the left hip. 21. Left knee osteoarthritis with medial and patellofemoral osteoarthritis of the left knee. 22. 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 23. History of hypertension, dyslipidemia. 24. History of chronic thrombocytopenia. 25. 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 26. Gram-negative nereida urinary tract infection. 1. Status post mechanical fall. 2. Probable ribcage contusion and leg pain and back pain. 3. Questionable intractable pain disorder and narcotic dependent pain syndrome. 4. Severe gait dysfunction. 5. Hypertension. 6. History of hypertension, normotension at present. 7. Stage II sacral decubitus ulceration. 8. Normocytic anemia with thrombocytopenia. 9. Mild prerenal kidney injury. 10. Hyperbilirubinemia. 11. Hypovitaminosis D. 12. History of dyslipidemia. 13. Microscopic hematuria, pyuria, bacteriuria. 14. Questionable urinary tract infection. 15. Severe osteoarthritis of the left hip. 16. Left knee osteoarthritis with medial and patellofemoral osteoarthritis of the left knee. 17. 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 18. Questionable urinary tract infection with microscopic hematuria, pyuria, bacteriuria. 1. Status post mechanical fall. 2. Probable ribcage contusion and leg pain. 3. History of hypertension. 4. Severe gait dysfunction. 5. Morbid obesity. 6. 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 7. Anemia. 8. Thrombocytopenia. 9. Mild prerenal kidney injury. 10. Mild rhabdomyolysis. 11. Questionable urinary tract infection with microscopic hematuria, pyuria, bacteriuria. 12. Chronic microvascular ischemic disease of the brain. 13. History of chronic thrombocytopenia. 14. 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 Severe gait dysfunction. 16. History of chronic narcotic-dependent pain syndrome, history of hypovitaminosis D, history of hypertension, history of hyperuricemia, history of dyslipidemia. PLAN: At this time, further orthopedic evaluation has been requested. The patient has been requested orthopedic followup. The patient will be continued on physical therapy, occupational therapy, out of bed. I had extensive discussion with the patient regarding the CAT scan finding and severe osteoarthritis of the hip. The patient categorically, understanding all the risks, consequences, categorically declines any surgical intervention. The patient was offered by orthopedics treatment options with physical therapy for ambulation training with walking and if the pain worsens, patient may need surgical intervention, but patient is declining at this time. CURRENT MEDICATIONS: 1. Altace 10 mg daily. 2. Colace 100 mg 3 times a day. 3. Dilaudid decreased to 0.5 mg IV q. hours p.r.n. 4. Vitamin D 50,000 units weekly. 5. Duragesic patch 50 mcg q. 72 hours. 6. Lac-Hydrin lotion 12% to both legs daily. 7. Lipitor 40 mg daily. 8. Cefepime 1 gram IV q. 12. 9. MiraLax 17 g twice a day. 10. Prednisone 5 mg daily. 11. Protonix 40 mg daily. 12. Senokot 17.2 mg at bedtime. 13. Topicort 0.05% ointment to the legs twice a day. 14. Toprol-XL 25 mg daily. 15. Vitamin D3 2000 units daily. 16. Zofran 4 mg IV q. 4 p.r.n. 17. Zyloprim 100 mg daily. Healthy diet, out of bed, MRAIANO stockings, SCDs all ordered. Physical therapy, occupational therapy ordered. At this time, patient will continue on the physical therapy on TCU and occupational therapy. The patient will be monitored closely for her pain status and if the pain medication needs to be adjusted, it will be adjusted depending upon the patient's subjective and objective symptoms and signs. Dictated and electronically signed, not read. Quinten Ashby MD cc: [id number] TT: 08/11/2016 11:17:12 Confirmation # [id number] Dictation # [id number] en MTDD
[2016-08-12] MEDS: Cefepime 1gm in NS 100ml 1 GM/100 ML BAG IVPB SCH ×2 (05:16→17:36)
[2016-08-12] MEDS: Pantoprazole 40 mg EC Tab PO SCH (06:27)
[2016-08-12] MEDS: Metoprolol Succinate 25 mg XL Tab PO SCH (08:48)
[2016-08-12] MEDS: POLYETHYLENE GLYCOL 3350 17 GM/Dose PACKET PO SCH ×2 (10:11→17:37)
[2016-08-12] MEDS: Ammonium Lactate 12% Cream (140 g) TOP SCH (10:13)
[2016-08-12] MEDS: Desoximetasone 0.05% Cream(60 gm) TOP SCH ×2 (10:14→17:37)
--- NOTE | 2016-08-12 10:37 | PN ---
DATE: 08/12/2016 An 85-year-old female seen at bedside today for continued evaluation and management of slowly resolvi ng venous stasis dermatitis of both lower legs. The patient states that she is feeling much better w ith the application of the creams twice daily. VITAL SIGNS: Reveal a temperature of 97.8, pulse rate of 59, blood pressure of 113/60, respiratory r ate of 16. LABORATORY DATA: Most recent laboratory findings reveal a white count of 6.8, hemoglobin 11.1, hemat ocrit 33.7, platelet count of 92. OBJECTIVE: Nonpalpable posterior tibial pulse and weakly palpable dorsalis pedis pulse bilaterally, +2 pitting edema noted bilaterally. Temperature gradient is reversed bilaterally. Capillary filling time is delayed x 10. Both lower extremities, legs present with decreasing discoloration of venous stasis dermatitis. There are no open lesions. There is no drainage. ASSESSMENT: An 85-year-old female with chronic venous stasis dermatitis and lower extremity weakness . PLAN: The patient's legs were cleansed with normal sterile saline. We will continue to apply Lac-Hy drin and Topicort to legs and feet once daily, we will reduce from twice to once daily. We will cont inue to apply the Tubigrips during the day, which will be removed at bedtime daily. Wil Cerda DPM cc: [id number] TT: 08/12/2016 10:36:50 Confirmation # [id number] Dictation # [id number] gildardo
--- NOTE | 2016-08-12 17:14 | PN ---
DATE: 08/12/2016 SUBJECTIVE: The patient is seen in room 322, bed 1. The [facility] The patient complained of some shoulder pain, but not back pain or hip pain. PHYSICAL EXAMINATION: VITAL SIGNS: T-max 99.2, heart rate 86, 84 and 70, blood pressure 112/61, 125/ 70 and 120/63, respirations 20 and O2 sat 96%. Intake and output not documented. HEAD: Normocephalic and atraumatic. HEENT: Shows pinkish conjunctivae and anicteric sclerae, No oropharyngeal lesion. NECK: No neck rigidity. CHEST: Kyphosis. LUNGS: Shows no rales, crackles or wheezing. CARDIOVASCULAR: Shows S1, S2, regular rhythm. Questionable soft systolic murmur, right second intercostal space, left sternal border. ABDOMEN: Soft, protuberant, obese with positive bowel sounds. GENITALIA: Female. Positive Hernandez catheter. EXTREMITIES: Shows chronic skin changes of the lower extremity. Trace swelling , missing MARIANO stockings despite my multiple orders. MUSCULOSKELETAL: Shows a body mass index of 40. VASCULAR: Palpable pulses. GAIT: Not tested. PSYCHIATRIC: Negative for anxiety and depression. Negative for auditory or visual hallucinations. Negative for suicidal or homicidal ideation. DIAGNOSTIC STUDIES: None. IMPRESSION AND PLAN: 1. Severe gait deconditioning. 2. Severe gait dysfunction. 3. Status post mechanical fall. 4. Possible questionable functional quadriplegia. 5. Severe left hip osteoarthritis with flattening of the femoral head with multiple osteophytes and complete loss of joint space. 6. Hypovitaminosis D. 7. Chronic venous stasis dermatitis of the lower extremities. 8. Hypertension. 9. History of constipation. 10. Narcotic-dependent chronic pain syndrome. 11. Dyslipidemia. 12. Thrombocytopenia. 13. Hyperuricemia. 1. Severe deconditioning and gait dysfunction. 2. Possible functional quadriplegia. 3. Status post mechanical fall. 4. Severe left hip osteoarthritis with flattening of the femoral head with multiple osteophytes and complete loss of the joint space. 5. Moderate to severe degenerative joint disease of the right hip with joint space narrowing. 6. Morbid obesity. 7. Hypertension. 8. Escherichia coli urinary tract infection. 9. History of hypertension. 10. Constipation. 11. Hypovitaminosis D. 12. Chronic narcotic dependent pain syndrome. 13. Dyslipidemia. 14. Thrombocytopenia. 15. Hypovitaminosis D. 16. Hyperuricemia. 17. Intractable narcotic dependent pain syndrome (resolving). 18. Poor compliance. 19. Pansensitive Escherichia coli urinary tract infection with pyuria, bacteriuria. 20. Stage II sacral decubitus ulceration, secondary to chronic bedridden status. 21. 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 1. Severe deconditioning. 2. Severe gait dysfunction. 3. Status post mechanical fall. 4. Severe osteoarthritis of the hips, left more than the right, involving severe gait dysfunction and deconditioning. 5. Chronic narcotic dependent pain syndrome. 6. Morbid obesity. 7. History of hypertension, history of thrombocytopenia. 8. Normocytic anemia. 9. Pansensitive Escherichia coli urinary tract infection. 10. Hypovitaminosis D. 11. Dyslipidemia. 12. Hypertension. 13. History of poor compliance. 14. Possible functional quadriplegia. 1. Status post mechanical fall. 2. Severe gait dysfunction and deconditioning. 3. Bedridden status. 4. Functional quadriplegia. 5. Noncardiac dependent chronic pain syndrome. 6. Severe osteoarthritis of the left hip. 7. Morbid obesity. 8. History of hypertension. 9. Pansensitive Escherichia coli urinary tract infection. 10. Hypertension. 11. Thrombocytopenia. 12. Anemia. 13. Hypouricemia. 14. 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 15. Poor compliance. 1. Status post mechanical fall. 2. Severe gait dysfunction, deconditioning and bedridden status. 3. Questionable functional quadriplegia. 4. Intractable narcotic dependent pain syndrome. 5. Poor compliance. 6. Transient hypotension. 7. Anemia. 8. Thrombocytopenia. 9. Prerenal kidney injury. 10. Hypovitaminosis D. 11. Hypercholesterolemia. 12. Pansensitive Escherichia coli urinary tract infection with microscopic hematuria, pyuria, bacteriuria. 13. Stage II sacral decubitus ulceration, secondary to chronic bedridden status. 14. 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 15. Left knee medial and patellofemoral osteoarthritis. 16. Severe deconditioning. 17. Morbid obesity with elevated body mass index of 46. 18. Chronic microvascular ischemic disease of the brain. 19. 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 20. Chronic venous stasis dermatitis with bilateral lower extremity weakness secondary to intractable pain syndrome. 21. History of hypertension. 22. Transient episodic hypotension. 23. Transient hyperbilirubinemia. 24. Hypovitaminosis D. 25. History of hypertension, hypovitaminosis D, dyslipidemia, constipation, hyperuricemia. 1. Severe gait dysfunction and deconditioning. 2. Status post mechanical fall. 3. Intractable narcotic dependent pain syndrome. 4. Poor compliance. 5. Severe gait dysfunction with bedridden status versus functional quadriplegia. 6. Transient hypotension. 7. Anemia, thrombocytopenia. 8. Prerenal kidney injury. 9. Hypovitaminosis D. 10. Hypercholesterolemia. 11. Prerenal kidney injury. 12. Pansensitive Escherichia coli urinary tract infection with microscopic hematuria, pyuria, bacteriuria. 13. Stage II sacral decubitus ulceration. 14. 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 15. Left knee medial and patellofemoral osteoarthritis. 16. Severe deconditioning. 17. Status post mechanical fall. 18. Morbid obesity with body mass index of greater than 46. 19. Chronic microvascular ischemic disease of the brain. 20. 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 21. Chronic venous stasis dermatitis with bilateral lower extremity weakness secondary to intractable pain syndrome. 22. Pansensitive Escherichia coli urinary tract infection. 23. History of hypertension with transient episodic hypotension. 24. Normocytic anemia. 25. Thrombocytopenia. 26. Transient hyperbilirubinemia. 27. Hypovitaminosis D. 28. Intractable narcotic dependent pain syndrome and disorder. 29. Stage II sacral decubitus ulceration. 30. Poor compliance. 31. History of hypertension, hypovitaminosis D, dyslipidemia, constipation, hypovitaminosis D, hyperuricemia. 1. Status post mechanical fall. 2. Intractable narcotic dependent pain syndrome. 3. Poor compliance. 4. Severe gait dysfunction with bedridden status versus questionable functional quadriplegia. 5. History of hypertension. 6. Transient episodic hypotension. 7. Normocytic anemia. 8. Thrombocytopenia. 9. Prerenal kidney injury. 10. Transient hyperbilirubinemia. 11. Hypovitaminosis D. 12. Morbid obesity with elevated body mass index of 46.1. 13. Gram-negative nereida urinary tract infection with microscopic hematuria, pyuria, bacteriuria. 14. Chronic venous stasis of the lower extremities, chronic venous stasis skin changes of the lower extremities. 15. Status post mechanical fall. 16. Intractable narcotic dependent pain syndrome and disorder. 17. Stage II sacral decubitus ulceration. 18. Normocytic anemia. 19. Hyperbilirubinemia. 20. Severe osteoarthritis of the left hip. 21. Left knee osteoarthritis with medial and patellofemoral osteoarthritis of the left knee. 22. 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 23. History of hypertension, dyslipidemia. 24. History of chronic thrombocytopenia. 25. 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 26. Gram-negative nereida urinary tract infection. 1. Status post mechanical fall. 2. Probable ribcage contusion and leg pain and back pain. 3. Questionable intractable pain disorder and narcotic dependent pain syndrome. 4. Severe gait dysfunction. 5. Hypertension. 6. History of hypertension, normotension at present. 7. Stage II sacral decubitus ulceration. 8. Normocytic anemia with thrombocytopenia. 9. Mild prerenal kidney injury. 10. Hyperbilirubinemia. 11. Hypovitaminosis D. 12. History of dyslipidemia. 13. Microscopic hematuria, pyuria, bacteriuria. 14. Questionable urinary tract infection. 15. Severe osteoarthritis of the left hip. 16. Left knee osteoarthritis with medial and patellofemoral osteoarthritis of the left knee. 17. 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 18. Questionable urinary tract infection with microscopic hematuria, pyuria, bacteriuria. 1. Status post mechanical fall. 2. Probable ribcage contusion and leg pain. 3. History of hypertension. 4. Severe gait dysfunction. 5. Morbid obesity. 6. 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 7. Anemia. 8. Thrombocytopenia. 9. Mild prerenal kidney injury. 10. Mild rhabdomyolysis. 11. Questionable urinary tract infection with microscopic hematuria, pyuria, bacteriuria. 12. Chronic microvascular ischemic disease of the brain. 13. History of chronic thrombocytopenia. 14. 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 Severe gait dysfunction. 16. History of chronic narcotic-dependent pain syndrome, history of hypovitaminosis D, history of hypertension, history of hyperuricemia, history of dyslipidemia. PLAN: At this time, the patient is to be continued on the transitional care unit with physical therapy, occupational therapy, gait training and ambulation. CURRENT MEDICATIONS: Altace 10 mg daily, Colace 100 mg 3 times a day, Dilaudid 0.5 mg IV q. 12 p.r.n. , Drisdol 50,000 weekly, fentanyl/Duragesic patch 50 mcg every 3 days, Lac- Hydrin lotion daily, Lipitor 10 mg daily, cefepime 1 gram IV q. 12, MiraLAX 17 grams twice a day, prednisone 5 mg daily, Protonix 40 mg daily, Senokot 17.2 mg at bedtime, Topicort cream to the affected area twice a day, Toprol-XL 25 mg daily, vitamin D3 2000 units daily, Zofran 4 mg IV q. 4 p.r.n. and Zyloprim 100 mg daily. The patient is to be continued on the above. The patient's IV antibiotic will be stopped by tomorrow. The patient will have completed 10 days. The patient was encouraged and counseled about increased activity, increased out of bed to chair and to recliner, increase activity, physical therapy and ambulation. Dictated and electronically signed, not read. Quinten Ashby MD cc: [id number] TT: 08/12/2016 17:14:25 Confirmation # [id number] Dictation # [id number] sn MTDD
[2016-08-13] MEDS: Pantoprazole 40 mg EC Tab PO SCH (05:38)
[2016-08-13] MEDS: Metoprolol Succinate 25 mg XL Tab PO SCH (10:44)
[2016-08-13] MEDS: Desoximetasone 0.05% Cream(60 gm) TOP SCH ×2 (10:45→17:39)
[2016-08-13] MEDS: Ammonium Lactate 12% Cream (140 g) TOP SCH (10:58)
[2016-08-13] MEDS: POLYETHYLENE GLYCOL 3350 17 GM/Dose PACKET PO SCH ×2 (10:58→17:40)
[2016-08-14] MEDS: Pantoprazole 40 mg EC Tab PO SCH (06:11)
[2016-08-14 08:44] LABS: ADD MANUAL DIFF? NO
[2016-08-14] MEDS: Metoprolol Succinate 25 mg XL Tab PO SCH (08:44)
[2016-08-14 08:59] LABS: ALB/GLOB RATIO 1.2 (1.1-1.8); ALKALINE PHOSPHATASE 53 U/L (38-133); ALT/SGPT 31 U/L (7-56); AST/SGOT 23 U/L (15-39); BILIRUBIN,DIRECT 0.3 mg/dL (0.0-0.4); BILIRUBIN,TOTAL 0.8 mg/dL (0.2-1.3); BLOOD UREA NITROGEN 33 mg/dL (7-21); CALCIUM 9.1 mg/dL (8.4-10.5); CARBON DIOXIDE 29 mmol/L (21-33); CHLORIDE 104 mmol/L (98-107); GFR AFRICAN-AMERICAN > 60; GLUCOSE,RANDOM 102 mg/dL (70-110); MAGNESIUM 2.1 mg/dL (1.7-2.2); POTASSIUM 4.4 mmol/L (3.6-5.0); SODIUM 138 mmol/L (132-148); URIC ACID 5.4 mg/dL (2.5-6.2)
[2016-08-14 09:24] LABS: BASO # 0.04 K/mm3 (0.0-2.0); BASO % 0.6 % (0.0-3.0); EOS # 0.2 (0.0-0.7); EOS % 2.2 % (1.5-5.0); GRAN # 3.08 (1.4-6.5); GRAN % 46.3 % (50.0-68.0); LYMPH # 2.9 (1.2-3.4); MEAN CELL VOLUME 92.6 fL (80.0-105.0); MEAN CORPUSCULAR HEMOGLOBIN 30.2 pg (25.0-35.0); MEAN CORPUSCULAR HGB CONC 32.6 g/dl (31.0-37.0); MEAN PLATELET VOLUME 10.9 fl (7.0-11.0); MONO # 0.5 (0.1-0.6); MONO % 7.9 % (1.0-6.0); PLATELET COUNT 105 10^3/uL (120.0-450.0); WHITE BLOOD COUNT 6.7 10^3/ul (4.5-11.0)
[2016-08-14] MEDS: Desoximetasone 0.05% Cream(60 gm) TOP SCH ×2 (11:10→18:05)
[2016-08-14] MEDS: POLYETHYLENE GLYCOL 3350 17 GM/Dose PACKET PO SCH ×2 (11:10→18:05)
--- NOTE | 2016-08-14 12:39 | PN ---
DATE: 08/14/2016 An 85-year-old female seen at bedside in TCU for continued evaluation and management of resolving tyler ous stasis dermatitis of both lower legs. She continues to apply the creams twice daily and is feeli ng much better. She is looking forward to being discharged. VITAL SIGNS: Reveal temperature of 97.9, pulse rate of 62, blood pressure of 101/53, respiratory rat e of 18. LABORATORY FINDINGS: Reveal a white count of 6.7, hemoglobin 11.4, hematocrit of 35, platelet count of 105. OBJECTIVE: +2 pitting edema noted bilaterally with decreasing erythema and temperature gradient. Th ere is nonpalpable posterior tibial and weakly palpable both dorsalis pedis pulses bilaterally. Ther e are noted to be no open lesions. There is no drainage and her erythema and edema are decreasing. ASSESSMENT: An 85-year-old female with chronic venous stasis dermatitis and lower extremity weakness . PLAN: The patient's legs were cleansed with normal sterile saline. We will continue to apply [place] rt and Lac-Hydrin to both legs once daily. She was once again reminded that she must use the Tubigri ps during the day to decrease her overall edema in both legs and they are to be removed before sleepi ng at night. The patient stated she understood and will comply. Wil Cerda DPM cc: [id number] TT: 08/14/2016 12:39:03 Confirmation # [id number] Dictation # [id number] paige
[2016-08-14] MEDS: Ammonium Lactate 12% Cream (140 g) TOP SCH (14:44)
--- NOTE | 2016-08-14 16:38 | PN ---
DATE: 08/14/2016 The patient is still in room 322. Overnight, patient continued to have the Hernandez catheter. The patient was found in bed. The patient required overhead trapeze for movement and rolling in bed. PHYSICAL EXAMINATION: VITAL SIGNS: T-max 97.9, pulse , blood pressure 111/68, , respirations 18, O2 sat 96%. HEAD: Normocephalic, atraumatic. HEENT: Shows pinkish conjunctivae, anicteric sclerae. No oropharyngeal lesion. NECK: No neck rigidity. CHEST: Kyphosis. LUNGS: Shows no rales, crackles, or wheezing. CARDIOVASCULAR: S1, S2, regular rhythm. ABDOMEN: Obese, positive bowel sounds. GENITALIA: Female. Positive Hernandez catheter. EXTREMITIES: Complete resolution of the swelling of the lower extremities, slight discoloration of the skin of the lower extremities. MUSCULOSKELETAL: Shows a BMI of greater than 40. NEUROLOGIC: The patient is alert, awake, oriented x 3. Cranial nerves II-XII grossly limited. GAIT: Could not be tested. MUSCULAR: BMI of 41. PSYCHIATRIC: Negative for anxiety, depression. Negative for suicidal or homicidal ideation, negative for auditory or visual hallucinations. DIAGNOSTICS: 08/14, WBC 6.7, hemoglobin/hematocrit 11.4/35, platelets 105. Sodium 138, potassium 4.4, chloride 104, CO2 29, anion gap 9, BUN 33, creatinine 1.0, GFR greater than 60, glucose 115, 102. Uric acid 5.4, calcium 9.1, magnesium 2.1. LFTs are completely normal. IMPRESSION AND PLAN: 1. Severe deconditioning. 2. Gait dysfunction. 3. Morbid obesity with elevated body mass index of 41. 4. Chronic venous stasis dermatitis of the lower extremity with bilateral lower extremity weakness secondary to severe osteoarthritis of the hips. 5. Chronic narcotic dependent pain syndrome. 6. History of hypertension. 7. History of constipation. 8. Hypovitaminosis D. 9. Dyslipidemia. 10. Constipation. 11. Thrombocytopenia. 12. Escherichia coli urinary tract infection. 13. Hypovitaminosis D. 14. Hyperuricemia. 15. Normocytic anemia and thrombocytopenia. 16. Morbid obesity. 17. Severe gait dysfunction. 18. Escherichia coli urinary tract infection. 19. Status post mechanical fall. 20. Severe osteoarthritis of the left hip, greater than right hip. 1. Severe gait deconditioning. 2. Severe gait dysfunction. 3. Status post mechanical fall. 4. Possible questionable functional quadriplegia. 5. Severe left hip osteoarthritis with flattening of the femoral head with multiple osteophytes and complete loss of joint space. 6. Hypovitaminosis D. 7. Chronic venous stasis dermatitis of the lower extremities. 8. Hypertension. 9. History of constipation. 10. Narcotic-dependent chronic pain syndrome. 11. Dyslipidemia. 12. Thrombocytopenia. 13. Hyperuricemia. 1. Severe deconditioning and gait dysfunction. 2. Possible functional quadriplegia. 3. Status post mechanical fall. 4. Severe left hip osteoarthritis with flattening of the femoral head with multiple osteophytes and complete loss of the joint space. 5. Moderate to severe degenerative joint disease of the right hip with joint space narrowing. 6. Morbid obesity. 7. Hypertension. 8. Escherichia coli urinary tract infection. 9. History of hypertension. 10. Constipation. 11. Hypovitaminosis D. 12. Chronic narcotic dependent pain syndrome. 13. Dyslipidemia. 14. Thrombocytopenia. 15. Hypovitaminosis D. 16. Hyperuricemia. 17. Intractable narcotic dependent pain syndrome (resolving). 18. Poor compliance. 19. Pansensitive Escherichia coli urinary tract infection with pyuria, bacteriuria. 20. Stage II sacral decubitus ulceration, secondary to chronic bedridden status. 21. 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 1. Severe deconditioning. 2. Severe gait dysfunction. 3. Status post mechanical fall. 4. Severe osteoarthritis of the hips, left more than the right, involving severe gait dysfunction and deconditioning. 5. Chronic narcotic dependent pain syndrome. 6. Morbid obesity. 7. History of hypertension, history of thrombocytopenia. 8. Normocytic anemia. 9. Pansensitive Escherichia coli urinary tract infection. 10. Hypovitaminosis D. 11. Dyslipidemia. 12. Hypertension. 13. History of poor compliance. 14. Possible functional quadriplegia. 1. Status post mechanical fall. 2. Severe gait dysfunction and deconditioning. 3. Bedridden status. 4. Functional quadriplegia. 5. Noncardiac dependent chronic pain syndrome. 6. Severe osteoarthritis of the left hip. 7. Morbid obesity. 8. History of hypertension. 9. Pansensitive Escherichia coli urinary tract infection. 10. Hypertension. 11. Thrombocytopenia. 12. Anemia. 13. Hypouricemia. 14. 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 15. Poor compliance. 1. Status post mechanical fall. 2. Severe gait dysfunction, deconditioning and bedridden status. 3. Questionable functional quadriplegia. 4. Intractable narcotic dependent pain syndrome. 5. Poor compliance. 6. Transient hypotension. 7. Anemia. 8. Thrombocytopenia. 9. Prerenal kidney injury. 10. Hypovitaminosis D. 11. Hypercholesterolemia. 12. Pansensitive Escherichia coli urinary tract infection with microscopic hematuria, pyuria, bacteriuria. 13. Stage II sacral decubitus ulceration, secondary to chronic bedridden status. 14. 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 15. Left knee medial and patellofemoral osteoarthritis. 16. Severe deconditioning. 17. Morbid obesity with elevated body mass index of 46. 18. Chronic microvascular ischemic disease of the brain. 19. 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 20. Chronic venous stasis dermatitis with bilateral lower extremity weakness secondary to intractable pain syndrome. 21. History of hypertension. 22. Transient episodic hypotension. 23. Transient hyperbilirubinemia. 24. Hypovitaminosis D. 25. History of hypertension, hypovitaminosis D, dyslipidemia, constipation, hyperuricemia. 1. Severe gait dysfunction and deconditioning. 2. Status post mechanical fall. 3. Intractable narcotic dependent pain syndrome. 4. Poor compliance. 5. Severe gait dysfunction with bedridden status versus functional quadriplegia. 6. Transient hypotension. 7. Anemia, thrombocytopenia. 8. Prerenal kidney injury. 9. Hypovitaminosis D. 10. Hypercholesterolemia. 11. Prerenal kidney injury. 12. Pansensitive Escherichia coli urinary tract infection with microscopic hematuria, pyuria, bacteriuria. 13. Stage II sacral decubitus ulceration. 14. 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 15. Left knee medial and patellofemoral osteoarthritis. 16. Severe deconditioning. 17. Status post mechanical fall. 18. Morbid obesity with body mass index of greater than 46. 19. Chronic microvascular ischemic disease of the brain. 20. 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 21. Chronic venous stasis dermatitis with bilateral lower extremity weakness secondary to intractable pain syndrome. 22. Pansensitive Escherichia coli urinary tract infection. 23. History of hypertension with transient episodic hypotension. 24. Normocytic anemia. 25. Thrombocytopenia. 26. Transient hyperbilirubinemia. 27. Hypovitaminosis D. 28. Intractable narcotic dependent pain syndrome and disorder. 29. Stage II sacral decubitus ulceration. 30. Poor compliance. 31. History of hypertension, hypovitaminosis D, dyslipidemia, constipation, hypovitaminosis D, hyperuricemia. 1. Status post mechanical fall. 2. Intractable narcotic dependent pain syndrome. 3. Poor compliance. 4. Severe gait dysfunction with bedridden status versus questionable functional quadriplegia. 5. History of hypertension. 6. Transient episodic hypotension. 7. Normocytic anemia. 8. Thrombocytopenia. 9. Prerenal kidney injury. 10. Transient hyperbilirubinemia. 11. Hypovitaminosis D. 12. Morbid obesity with elevated body mass index of 46.1. 13. Gram-negative nereida urinary tract infection with microscopic hematuria, pyuria, bacteriuria. 14. Chronic venous stasis of the lower extremities, chronic venous stasis skin changes of the lower extremities. 15. Status post mechanical fall. 16. Intractable narcotic dependent pain syndrome and disorder. 17. Stage II sacral decubitus ulceration. 18. Normocytic anemia. 19. Hyperbilirubinemia. 20. Severe osteoarthritis of the left hip. 21. Left knee osteoarthritis with medial and patellofemoral osteoarthritis of the left knee. 22. 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 23. History of hypertension, dyslipidemia. 24. History of chronic thrombocytopenia. 25. 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 26. Gram-negative nereida urinary tract infection. 1. Status post mechanical fall. 2. Probable ribcage contusion and leg pain and back pain. 3. Questionable intractable pain disorder and narcotic dependent pain syndrome. 4. Severe gait dysfunction. 5. Hypertension. 6. History of hypertension, normotension at present. 7. Stage II sacral decubitus ulceration. 8. Normocytic anemia with thrombocytopenia. 9. Mild prerenal kidney injury. 10. Hyperbilirubinemia. 11. Hypovitaminosis D. 12. History of dyslipidemia. 13. Microscopic hematuria, pyuria, bacteriuria. 14. Questionable urinary tract infection. 15. Severe osteoarthritis of the left hip. 16. Left knee osteoarthritis with medial and patellofemoral osteoarthritis of the left knee. 17. 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 18. Questionable urinary tract infection with microscopic hematuria, pyuria, bacteriuria. 1. Status post mechanical fall. 2. Probable ribcage contusion and leg pain. 3. History of hypertension. 4. Severe gait dysfunction. 5. Morbid obesity. 6. 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 7. Anemia. 8. Thrombocytopenia. 9. Mild prerenal kidney injury. 10. Mild rhabdomyolysis. 11. Questionable urinary tract infection with microscopic hematuria, pyuria, bacteriuria. 12. Chronic microvascular ischemic disease of the brain. 13. History of chronic thrombocytopenia. 14. 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 Severe gait dysfunction. 16. History of chronic narcotic-dependent pain syndrome, history of hypovitaminosis D, history of hypertension, history of hyperuricemia, history of dyslipidemia. PLAN: At this time, patient is to be continued on the transitional care unit floor. The patient is ordered physical therapy, occupational therapy, out of bed to chair. CURRENT MEDICATIONS: 1. Altace 10 mg daily. 2. Colace 100 mg 3 times a day. 3. Dilaudid 0.5 mg IV q. p.r.n. 4. Vitamin D 50,000 units weekly. 5. Duragesic patch 50 mcg q. 72 hours. 6. Lac-Hydrin lotion to the legs. 7. Lipitor mg daily. 8. MiraLax 17 g twice a day. 9. Prednisone 5 mg daily. 10. Protonix 40 mg daily. 11. Senokot 17.2 mg at bedtime. 12. Topicort ointment to the lower extremity twice a day. 13. Toprol-XL 25 mg daily. 14. Vitamin D3 2000 units daily. 15. Zofran 4 mg IV q. 4 p.r.n. 16. Zyloprim 100 mg daily. The patient has been encouraged out of bed to chair. Dima Crespo has been ordered. Out of bed to chair ordered. Physical therapy, occupational therapy ordered. At present, patient is to continue her approved transitional care unit stay. The patient is to continue with the above transitional care unit stay with aggressive physical therapy, occupational therapy, ambulation therapy. The patient will be considered for discharge after completion of transitional care unit stay. Dictated and electronically signed, not read. Quinten Ashby MD cc: [id number] TT: 08/14/2016 16:37:22 Confirmation # [id number] Dictation # [id number] en EVELYNE
--- NOTE | 2016-08-14 16:42 | PN ---
DATE: 08/13/2016 The [facility] The patient is talking to the roommate. The patient appears to be comfortable. PHYSICAL EXAMINATION: VITAL SIGNS: T-max 97.9, heart rate is 60-84, blood pressure in the last 24 hours 120/63, 112/61, 111/68, respiration 18, O2 sat is 96%. HEAD: Normocephalic, atraumatic. HEENT: Shows pink conjunctivae, anicteric sclerae. No oropharyngeal lesion. NECK: No neck rigidity. CHEST: Kyphosis. LUNGS: Shows no rales, crackles, or wheezing. CARDIOVASCULAR: S1, S2, regular rhythm. ABDOMEN: Protuberant, obese. GENITALIA: Female. Positive Hernandez catheter. EXTREMITIES: Shows almost complete resolution of the lower extremity discoloration, no pitting edema, trace swelling, no calf tenderness, no Homans signs. MUSCULOSKELETAL: Shows a body mass index of almost 41. GAIT: Could not be tested. Cranial nerves II-XII limited. MUSCULOSKELETAL: Shows obesity. DIAGNOSTICS: None from today. MEDICATIONS: Record was reviewed. The patient has not been requesting any Dilaudid for the last few days and patient appears to be pain free with Duragesic patch. IMPRESSION AND PLAN: 1. Severe deconditioning and gait dysfunction. 2. Morbid obesity with a body mass index of greater than 40. 3. Status post mechanical fall. 4. Possible and questionable functional quadriplegia. 5. Severe left hip osteoarthritis with flattening of the femoral head with multiple osteophytes and complete loss of the joint space. 6. Hypovitaminosis D. 7. Chronic venous stasis dermatitis of the lower extremity. 8. Hypertension. 9. Thrombocytopenia. 10. Hypovitaminosis D. 11. Chronic venous stasis dermatitis of the lower extremity with lower extremity weakness secondary to severe osteoarthritis of the hips, left more than the right. 12. Hypertension. 13. Constipation. 14. Hypovitaminosis D. 15. Dyslipidemia. 16. Escherichia coli urinary tract infection. 17. Hyperuricemia. 1. Severe deconditioning. 2. Gait dysfunction. 3. Morbid obesity with elevated body mass index of 41. 4. Chronic venous stasis dermatitis of the lower extremity with bilateral lower extremity weakness secondary to severe osteoarthritis of the hips. 5. Chronic narcotic dependent pain syndrome. 6. History of hypertension. 7. History of constipation. 8. Hypovitaminosis D. 9. Dyslipidemia. 10. Constipation. 11. Thrombocytopenia. 12. Escherichia coli urinary tract infection. 13. Hypovitaminosis D. 14. Hyperuricemia. 15. Normocytic anemia and thrombocytopenia. 16. Morbid obesity. 17. Severe gait dysfunction. 18. Escherichia coli urinary tract infection. 19. Status post mechanical fall. 20. Severe osteoarthritis of the left hip, greater than right hip. 1. Severe gait deconditioning. 2. Severe gait dysfunction. 3. Status post mechanical fall. 4. Possible questionable functional quadriplegia. 5. Severe left hip osteoarthritis with flattening of the femoral head with multiple osteophytes and complete loss of joint space. 6. Hypovitaminosis D. 7. Chronic venous stasis dermatitis of the lower extremities. 8. Hypertension. 9. History of constipation. 10. Narcotic-dependent chronic pain syndrome. 11. Dyslipidemia. 12. Thrombocytopenia. 13. Hyperuricemia. 1. Severe deconditioning and gait dysfunction. 2. Possible functional quadriplegia. 3. Status post mechanical fall. 4. Severe left hip osteoarthritis with flattening of the femoral head with multiple osteophytes and complete loss of the joint space. 5. Moderate to severe degenerative joint disease of the right hip with joint space narrowing. 6. Morbid obesity. 7. Hypertension. 8. Escherichia coli urinary tract infection. 9. History of hypertension. 10. Constipation. 11. Hypovitaminosis D. 12. Chronic narcotic dependent pain syndrome. 13. Dyslipidemia. 14. Thrombocytopenia. 15. Hypovitaminosis D. 16. Hyperuricemia. 17. Intractable narcotic dependent pain syndrome (resolving). 18. Poor compliance. 19. Pansensitive Escherichia coli urinary tract infection with pyuria, bacteriuria. 20. Stage II sacral decubitus ulceration, secondary to chronic bedridden status. 21. 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 1. Severe deconditioning. 2. Severe gait dysfunction. 3. Status post mechanical fall. 4. Severe osteoarthritis of the hips, left more than the right, involving severe gait dysfunction and deconditioning. 5. Chronic narcotic dependent pain syndrome. 6. Morbid obesity. 7. History of hypertension, history of thrombocytopenia. 8. Normocytic anemia. 9. Pansensitive Escherichia coli urinary tract infection. 10. Hypovitaminosis D. 11. Dyslipidemia. 12. Hypertension. 13. History of poor compliance. 14. Possible functional quadriplegia. 1. Status post mechanical fall. 2. Severe gait dysfunction and deconditioning. 3. Bedridden status. 4. Functional quadriplegia. 5. Noncardiac dependent chronic pain syndrome. 6. Severe osteoarthritis of the left hip. 7. Morbid obesity. 8. History of hypertension. 9. Pansensitive Escherichia coli urinary tract infection. 10. Hypertension. 11. Thrombocytopenia. 12. Anemia. 13. Hypouricemia. 14. 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 15. Poor compliance. 1. Status post mechanical fall. 2. Severe gait dysfunction, deconditioning and bedridden status. 3. Questionable functional quadriplegia. 4. Intractable narcotic dependent pain syndrome. 5. Poor compliance. 6. Transient hypotension. 7. Anemia. 8. Thrombocytopenia. 9. Prerenal kidney injury. 10. Hypovitaminosis D. 11. Hypercholesterolemia. 12. Pansensitive Escherichia coli urinary tract infection with microscopic hematuria, pyuria, bacteriuria. 13. Stage II sacral decubitus ulceration, secondary to chronic bedridden status. 14. 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 15. Left knee medial and patellofemoral osteoarthritis. 16. Severe deconditioning. 17. Morbid obesity with elevated body mass index of 46. 18. Chronic microvascular ischemic disease of the brain. 19. 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 20. Chronic venous stasis dermatitis with bilateral lower extremity weakness secondary to intractable pain syndrome. 21. History of hypertension. 22. Transient episodic hypotension. 23. Transient hyperbilirubinemia. 24. Hypovitaminosis D. 25. History of hypertension, hypovitaminosis D, dyslipidemia, constipation, hyperuricemia. 1. Severe gait dysfunction and deconditioning. 2. Status post mechanical fall. 3. Intractable narcotic dependent pain syndrome. 4. Poor compliance. 5. Severe gait dysfunction with bedridden status versus functional quadriplegia. 6. Transient hypotension. 7. Anemia, thrombocytopenia. 8. Prerenal kidney injury. 9. Hypovitaminosis D. 10. Hypercholesterolemia. 11. Prerenal kidney injury. 12. Pansensitive Escherichia coli urinary tract infection with microscopic hematuria, pyuria, bacteriuria. 13. Stage II sacral decubitus ulceration. 14. 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 15. Left knee medial and patellofemoral osteoarthritis. 16. Severe deconditioning. 17. Status post mechanical fall. 18. Morbid obesity with body mass index of greater than 46. 19. Chronic microvascular ischemic disease of the brain. 20. 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 21. Chronic venous stasis dermatitis with bilateral lower extremity weakness secondary to intractable pain syndrome. 22. Pansensitive Escherichia coli urinary tract infection. 23. History of hypertension with transient episodic hypotension. 24. Normocytic anemia. 25. Thrombocytopenia. 26. Transient hyperbilirubinemia. 27. Hypovitaminosis D. 28. Intractable narcotic dependent pain syndrome and disorder. 29. Stage II sacral decubitus ulceration. 30. Poor compliance. 31. History of hypertension, hypovitaminosis D, dyslipidemia, constipation, hypovitaminosis D, hyperuricemia. 1. Status post mechanical fall. 2. Intractable narcotic dependent pain syndrome. 3. Poor compliance. 4. Severe gait dysfunction with bedridden status versus questionable functional quadriplegia. 5. History of hypertension. 6. Transient episodic hypotension. 7. Normocytic anemia. 8. Thrombocytopenia. 9. Prerenal kidney injury. 10. Transient hyperbilirubinemia. 11. Hypovitaminosis D. 12. Morbid obesity with elevated body mass index of 46.1. 13. Gram-negative nereida urinary tract infection with microscopic hematuria, pyuria, bacteriuria. 14. Chronic venous stasis of the lower extremities, chronic venous stasis skin changes of the lower extremities. 15. Status post mechanical fall. 16. Intractable narcotic dependent pain syndrome and disorder. 17. Stage II sacral decubitus ulceration. 18. Normocytic anemia. 19. Hyperbilirubinemia. 20. Severe osteoarthritis of the left hip. 21. Left knee osteoarthritis with medial and patellofemoral osteoarthritis of the left knee. 22. 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 23. History of hypertension, dyslipidemia. 24. History of chronic thrombocytopenia. 25. 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 26. Gram-negative nereida urinary tract infection. 1. Status post mechanical fall. 2. Probable ribcage contusion and leg pain and back pain. 3. Questionable intractable pain disorder and narcotic dependent pain syndrome. 4. Severe gait dysfunction. 5. Hypertension. 6. History of hypertension, normotension at present. 7. Stage II sacral decubitus ulceration. 8. Normocytic anemia with thrombocytopenia. 9. Mild prerenal kidney injury. 10. Hyperbilirubinemia. 11. Hypovitaminosis D. 12. History of dyslipidemia. 13. Microscopic hematuria, pyuria, bacteriuria. 14. Questionable urinary tract infection. 15. Severe osteoarthritis of the left hip. 16. Left knee osteoarthritis with medial and patellofemoral osteoarthritis of the left knee. 17. 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 18. Questionable urinary tract infection with microscopic hematuria, pyuria, bacteriuria. 1. Status post mechanical fall. 2. Probable ribcage contusion and leg pain. 3. History of hypertension. 4. Severe gait dysfunction. 5. Morbid obesity. 6. 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 7. Anemia. 8. Thrombocytopenia. 9. Mild prerenal kidney injury. 10. Mild rhabdomyolysis. 11. Questionable urinary tract infection with microscopic hematuria, pyuria, bacteriuria. 12. Chronic microvascular ischemic disease of the brain. 13. History of chronic thrombocytopenia. 14. 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 Severe gait dysfunction. 16. History of chronic narcotic-dependent pain syndrome, history of hypovitaminosis D, history of hypertension, history of hyperuricemia, history of dyslipidemia. PLAN: At this time, patient is to be continued on the above therapeutic intervention with physical therapy, ambulation therapy, occupational therapy to be continued. The patient has done . The patient was ambulated 80 feet with rolling walker. The patient developed intermittent anxiety during the ____ _. The patient was advised relaxation therapy. Dictated and electronically signed, not read. Quinten Ashby MD cc: [id number] TT: 08/13/2016 16:42:11 Confirmation # [id number] Dictation # [id number] en MTDD
[2016-08-15] MEDS: Pantoprazole 40 mg EC Tab PO SCH (05:51)
[2016-08-15] MEDS: Metoprolol Succinate 25 mg XL Tab PO SCH (09:12)
[2016-08-15] MEDS ORDERED: Ergocalciferol 50,000 Intl Units Cap PO SCH (10:00)
--- NOTE | 2016-08-15 10:48 | DS ---
The patient is seen lying in the bed in room 322, bed 1. The patient is comfortable. The patient does not appear to be in any distress. Overnight nurse's notes were reviewed. The patient needed assistance to be out of bed to chair. REVIEW OF SYSTEMS: A 13-system review was done. Pertinent positives and negatives dictated above. PHYSICAL EXAMINATION: VITAL SIGNS: T-max 97.5, pulse 61, blood pressure 125/65, respirations 20, O2 sat 96%. HEAD: Normocephalic, atraumatic. HEENT: Shows pinkish conjunctivae, anicteric sclerae. No oropharyngeal lesion. NECK: No neck rigidity. CHEST: Kyphosis. LUNGS: Shows no rales, crackles, or wheezing. CARDIOVASCULAR: Shows S1, S2, regular rhythm. ABDOMEN: Protuberant, positive bowel sounds. GENITALIA: Female. Positive Hernandez catheter. EXTREMITIES: Show no pitting edema, decreasing discoloration of the lower extremity skin changes. MUSCULOSKELETAL: Shows a body mass index of 41. NEUROLOGIC: Cranial nerves II-XII limited. GAIT: Examination could not be tested, as the patient is lying in the bed. DIAGNOSTICS: None from today. Diagnostics from 08/14 reviewed. FINAL IMPRESSION AND PLAN & DISCHARGE DIAGNOSES: 1. Severe gait dysfunction and deconditioning. 2. Morbid obesity with elevated body mass index of 41. 3. Severe deconditioning. 4. Questionable and possible functional quadriplegia. 5. Chronic narcotic-dependent pain syndrome. 6. Severe osteoarthritis of the left hip greater than the right. 7. History of hypertension, constipation, hypovitaminosis D, dyslipidemia. 8. Chronic venous stasis dermatitis of the lower extremity. 9. Bilateral lower extremity weakness secondary to severe osteoarthritis of the hips. 10. Thrombocytopenia. 11. Escherichia coli urinary tract infection. 12. Hypovitaminosis D. 13. Status post mechanical fall. 14. Poor compliance. 15. History of hypertension, hypovitaminosis D, constipation, dyslipidemia, thrombocytopenia, and hyperuricemia. 1. Severe deconditioning. 2. Gait dysfunction. 3. Morbid obesity with elevated body mass index of 41. 4. Chronic venous stasis dermatitis of the lower extremity with bilateral lower extremity weakness secondary to severe osteoarthritis of the hips. 5. Chronic narcotic dependent pain syndrome. 6. History of hypertension. 7. History of constipation. 8. Hypovitaminosis D. 9. Dyslipidemia. 10. Constipation. 11. Thrombocytopenia. 12. Escherichia coli urinary tract infection. 13. Hypovitaminosis D. 14. Hyperuricemia. 15. Normocytic anemia and thrombocytopenia. 16. Morbid obesity. 17. Severe gait dysfunction. 18. Escherichia coli urinary tract infection. 19. Status post mechanical fall. 20. Severe osteoarthritis of the left hip, greater than right hip. 1. Severe gait deconditioning. 2. Severe gait dysfunction. 3. Status post mechanical fall. 4. Possible questionable functional quadriplegia. 5. Severe left hip osteoarthritis with flattening of the femoral head with multiple osteophytes and complete loss of joint space. 6. Hypovitaminosis D. 7. Chronic venous stasis dermatitis of the lower extremities. 8. Hypertension. 9. History of constipation. 10. Narcotic-dependent chronic pain syndrome. 11. Dyslipidemia. 12. Thrombocytopenia. 13. Hyperuricemia. 1. Severe deconditioning and gait dysfunction. 2. Possible functional quadriplegia. 3. Status post mechanical fall. 4. Severe left hip osteoarthritis with flattening of the femoral head with multiple osteophytes and complete loss of the joint space. 5. Moderate to severe degenerative joint disease of the right hip with joint space narrowing. 6. Morbid obesity. 7. Hypertension. 8. Escherichia coli urinary tract infection. 9. History of hypertension. 10. Constipation. 11. Hypovitaminosis D. 12. Chronic narcotic dependent pain syndrome. 13. Dyslipidemia. 14. Thrombocytopenia. 15. Hypovitaminosis D. 16. Hyperuricemia. 17. Intractable narcotic dependent pain syndrome (resolving). 18. Poor compliance. 19. Pansensitive Escherichia coli urinary tract infection with pyuria, bacteriuria. 20. Stage II sacral decubitus ulceration, secondary to chronic bedridden status. 21. 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 1. Severe deconditioning. 2. Severe gait dysfunction. 3. Status post mechanical fall. 4. Severe osteoarthritis of the hips, left more than the right, involving severe gait dysfunction and deconditioning. 5. Chronic narcotic dependent pain syndrome. 6. Morbid obesity. 7. History of hypertension, history of thrombocytopenia. 8. Normocytic anemia. 9. Pansensitive Escherichia coli urinary tract infection. 10. Hypovitaminosis D. 11. Dyslipidemia. 12. Hypertension. 13. History of poor compliance. 14. Possible functional quadriplegia. 1. Status post mechanical fall. 2. Severe gait dysfunction and deconditioning. 3. Bedridden status. 4. Functional quadriplegia. 5. Noncardiac dependent chronic pain syndrome. 6. Severe osteoarthritis of the left hip. 7. Morbid obesity. 8. History of hypertension. 9. Pansensitive Escherichia coli urinary tract infection. 10. Hypertension. 11. Thrombocytopenia. 12. Anemia. 13. Hypouricemia. 14. 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 15. Poor compliance. 1. Status post mechanical fall. 2. Severe gait dysfunction, deconditioning and bedridden status. 3. Questionable functional quadriplegia. 4. Intractable narcotic dependent pain syndrome. 5. Poor compliance. 6. Transient hypotension. 7. Anemia. 8. Thrombocytopenia. 9. Prerenal kidney injury. 10. Hypovitaminosis D. 11. Hypercholesterolemia. 12. Pansensitive Escherichia coli urinary tract infection with microscopic hematuria, pyuria, bacteriuria. 13. Stage II sacral decubitus ulceration, secondary to chronic bedridden status. 14. 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 15. Left knee medial and patellofemoral osteoarthritis. 16. Severe deconditioning. 17. Morbid obesity with elevated body mass index of 46. 18. Chronic microvascular ischemic disease of the brain. 19. 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 20. Chronic venous stasis dermatitis with bilateral lower extremity weakness secondary to intractable pain syndrome. 21. History of hypertension. 22. Transient episodic hypotension. 23. Transient hyperbilirubinemia. 24. Hypovitaminosis D. 25. History of hypertension, hypovitaminosis D, dyslipidemia, constipation, hyperuricemia. 1. Severe gait dysfunction and deconditioning. 2. Status post mechanical fall. 3. Intractable narcotic dependent pain syndrome. 4. Poor compliance. 5. Severe gait dysfunction with bedridden status versus functional quadriplegia. 6. Transient hypotension. 7. Anemia, thrombocytopenia. 8. Prerenal kidney injury. 9. Hypovitaminosis D. 10. Hypercholesterolemia. 11. Prerenal kidney injury. 12. Pansensitive Escherichia coli urinary tract infection with microscopic hematuria, pyuria, bacteriuria. 13. Stage II sacral decubitus ulceration. 14. 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 15. Left knee medial and patellofemoral osteoarthritis. 16. Severe deconditioning. 17. Status post mechanical fall. 18. Morbid obesity with body mass index of greater than 46. 19. Chronic microvascular ischemic disease of the brain. 20. 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 21. Chronic venous stasis dermatitis with bilateral lower extremity weakness secondary to intractable pain syndrome. 22. Pansensitive Escherichia coli urinary tract infection. 23. History of hypertension with transient episodic hypotension. 24. Normocytic anemia. 25. Thrombocytopenia. 26. Transient hyperbilirubinemia. 27. Hypovitaminosis D. 28. Intractable narcotic dependent pain syndrome and disorder. 29. Stage II sacral decubitus ulceration. 30. Poor compliance. 31. History of hypertension, hypovitaminosis D, dyslipidemia, constipation, hypovitaminosis D, hyperuricemia. 1. Status post mechanical fall. 2. Intractable narcotic dependent pain syndrome. 3. Poor compliance. 4. Severe gait dysfunction with bedridden status versus questionable functional quadriplegia. 5. History of hypertension. 6. Transient episodic hypotension. 7. Normocytic anemia. 8. Thrombocytopenia. 9. Prerenal kidney injury. 10. Transient hyperbilirubinemia. 11. Hypovitaminosis D. 12. Morbid obesity with elevated body mass index of 46.1. 13. Gram-negative nereida urinary tract infection with microscopic hematuria, pyuria, bacteriuria. 14. Chronic venous stasis of the lower extremities, chronic venous stasis skin changes of the lower extremities. 15. Status post mechanical fall. 16. Intractable narcotic dependent pain syndrome and disorder. 17. Stage II sacral decubitus ulceration. 18. Normocytic anemia. 19. Hyperbilirubinemia. 20. Severe osteoarthritis of the left hip. 21. Left knee osteoarthritis with medial and patellofemoral osteoarthritis of the left knee. 22. 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 23. History of hypertension, dyslipidemia. 24. History of chronic thrombocytopenia. 25. 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 26. Gram-negative nereida urinary tract infection. 1. Status post mechanical fall. 2. Probable ribcage contusion and leg pain and back pain. 3. Questionable intractable pain disorder and narcotic dependent pain syndrome. 4. Severe gait dysfunction. 5. Hypertension. 6. History of hypertension, normotension at present. 7. Stage II sacral decubitus ulceration. 8. Normocytic anemia with thrombocytopenia. 9. Mild prerenal kidney injury. 10. Hyperbilirubinemia. 11. Hypovitaminosis D. 12. History of dyslipidemia. 13. Microscopic hematuria, pyuria, bacteriuria. 14. Questionable urinary tract infection. 15. Severe osteoarthritis of the left hip. 16. Left knee osteoarthritis with medial and patellofemoral osteoarthritis of the left knee. 17. 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 18. Questionable urinary tract infection with microscopic hematuria, pyuria, bacteriuria. 1. Status post mechanical fall. 2. Probable ribcage contusion and leg pain. 3. History of hypertension. 4. Severe gait dysfunction. 5. Morbid obesity. 6. 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 7. Anemia. 8. Thrombocytopenia. 9. Mild prerenal kidney injury. 10. Mild rhabdomyolysis. 11. Questionable urinary tract infection with microscopic hematuria, pyuria, bacteriuria. 12. Chronic microvascular ischemic disease of the brain. 13. History of chronic thrombocytopenia. 14. 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 Severe gait dysfunction. 16. History of chronic narcotic-dependent pain syndrome, history of hypovitaminosis D, history of hypertension, history of hyperuricemia, history of dyslipidemia. PLAN: At this time, the patient is to continue out of bed to chair, physical therapy, occupational therapy, ambulation therapy, gait training, etc. The patient ambulated 80 feet yesterday. Physical therapy recommendations are noted. CURRENT MEDICATIONS: Altace 10 mg daily, Colace 100 mg 3 times a day, Dilaudid 0.5 mg IV q. 12 p.r.n., Drisdol 50,000 weekly, Duragesic patch 50 mcg q. 72 hours, Lac-Hydrin lotion to both feet and legs daily, Lipitor 10 mg daily, MiraLax 17 g twice a day, prednisone 5 mg daily, Protonix 40 mg daily, Senokot 17.2 mg at bedtime, Topicort 0.05% cream twice a day, Toprol XL 25 mg daily, vitamin D 2000 units daily, Zofran 4 mg IV q. 4 p.r.n., allopurinol 100 mg daily , Dilaudid 0.5 mg IV q. 12 p.r.n., Drisdol 50,000 weekly. At present, the patient is to complete her TCU (transitional care unit) stay. Physical therapy is recommending discharge home with services. [facility] MIRA SCHMITT Female : 1930 Emr# [id number] 08/15/16 12:13 - Social Work Progress Note by Bailey Laughlin Acct Num: [id number] : 1930 Patient Age: 85 Spoke with patient and her , Patient is now agreeable to bill at [facility], Referral sent via [employer]. Initialized on 08/15/16 12:13 - END OF NOTE [facility] MIRA SCHMITT Female : 1930 Emr# [id number] 08/15/16 16:19 - Social Work Progress Note by Bailey Laughlin Acct Num: [id number] : 1930 Patient Age: 85 Patient is accepted to [facility] and bed is available. Reynaldo to transport at 6 thirty, Copy of chart and transfer form to accompany. Patient is aware and her was contacted, Discharge plan [facility] 03 Initialized on 08/15/16 16:19 - END OF NOTE TIME SPENT IN THE ENTIRE DISCHARGE PROCESS >45 MINUTES. Dictated and electronically signed, not read. Quintne Ashby MD cc: [id number] TT: 08/15/2016 10:47:56 gildardo [employer]
[2016-08-15] MEDS: Ammonium Lactate 12% Cream (140 g) TOP SCH (10:54)
[2016-08-15] MEDS: Desoximetasone 0.05% Cream(60 gm) TOP SCH (10:54)
[2016-08-15 11:29] VITALS: BP 155/72; PULSE 77; RESP 16; TEMP 98.1; O2SAT 99
[2016-08-15] MEDS: POLYETHYLENE GLYCOL 3350 17 GM/Dose PACKET PO SCH (11:31)
== END 2016-08-15 19:11 | DRG 689 ==
LOC: TRCU 15:35
PROVIDERS: ADMIT Internal Medicine; ATTEND Internal Medicine
PROC: F07Z9ZZ Gait Training/Functional Ambulation Treatment (ICD-10-PCS; principal; 2016-08-09)
PROC: F07M6ZZ Therapeutic Exercise Treatment of Musculoskeletal System - Whole Body (ICD-10-PCS; 2016-08-09)
PROC: F08Z0ZZ Bathing/Showering Techniques Treatment (ICD-10-PCS; 2016-08-09)
PROC: F08Z1ZZ Dressing Techniques Treatment (ICD-10-PCS; 2016-08-09)
PROC: F08Z2ZZ Grooming/Personal Hygiene Treatment (ICD-10-PCS; 2016-08-09)
PROC: F08Z3ZZ Feeding/Eating Treatment (ICD-10-PCS; 2016-08-09)
DX: N39.0 Urinary tract infection, site not specified (principal); R53.2 Functional quadriplegia; L89.152 Pressure ulcer of sacral region, stage 2; D69.6 Thrombocytopenia, unspecified; Z68.41 Body mass index [BMI] 40.0-44.9, adult; I45.2 Bifascicular block; F11.20 Opioid dependence, uncomplicated; D64.9 Anemia, unspecified; E66.01 Morbid (severe) obesity due to excess calories; B96.20 Unspecified Escherichia coli [E. coli] as the cause of diseases classified elsewhere; I10 Essential (primary) hypertension; E55.9 Vitamin D deficiency, unspecified; E78.5 Hyperlipidemia, unspecified; G89.4 Chronic pain syndrome; I87.2 Venous insufficiency (chronic) (peripheral); I87.8 Other specified disorders of veins; K59.00 Constipation, unspecified; M16.0 Bilateral primary osteoarthritis of hip; Z74.01 Bed confinement status; Z91.81 History of falling; E79.0 Hyperuricemia without signs of inflammatory arthritis and tophaceous disease; M25.70 Osteophyte, unspecified joint; R53.81 Other malaise; M40.204 Unspecified kyphosis, thoracic region

== ENCOUNTER 2017-12-12 12:32 | Inpatient (IN) | payer MEDICARE ==
[2017-12-12 12:39] VITALS: BMI 42.9
--- NOTE | 2017-12-12 13:21 | ED PDOC ---
Arrival/HPI - General Chief Complaint: Weakness/Neurological Deficit Time Seen by Provider: 12/12/17 13:20 Historian: Patient - History of Present Illness Narrative History of Present Illness (Text): 12/12/17 13:21 Patient is an 87 year old female who presents to the Emergency Department with family member complaining of generalized weakness that started 2 months ago. Patient reports that for the past 2 months she has been experiencing generalized weakness, and back and bilateral lower extremity pain. She states that yesterday she slid off of her electric chair and couldn't get up because of how weak she was, requiring her sons to help. Patient presents to the emergency department today because she woke up and couldn't walk due to feeling weak and bilateral lower extremity pain. She normally uses a walker to ambulate, and states that her right lower extremity is bandaged due to swelling. Her leg was last re- bandaged yesterday. Patient denies fevers, chills, cough, shortness of breath, chest pain, dyspnea on exertion, abdominal pain, nausea, vomiting, diarrhea, headache, dizziness, or any other complaint. PMD: Dr.Michelle Garces Time/Duration: > month Symptom Onset: Gradual Symptom Course: Unchanged Context: Sitting, Home Past Medical History - Provider Review Nursing Documentation Reviewed: Yes - Infectious Disease Hx of Infectious Diseases: None - Tetanus Immunization Tetanus Immunization: Unknown - Reproductive Menopause: Yes - Cardiac Hx Hypertension: Yes - Pulmonary Hx Respiratory Disorders: No - Neurological Hx Neurological Disorder: No - HEENT Hx HEENT Disorder: No - Endocrine/Metabolic Hx Endocrine Disorders: No - Hematological/Oncological Other/Comment: PLATELET ABNORMALITY - Integumentary Hx Dermatological Disorder: No - Musculoskeletal/Rheumatological Hx Falls: Yes - Gastrointestinal Hx Gastrointestinal Disorders: No - Genitourinary/Gynecological Hx Genitourinary Disorders: Yes Hx Reproductive Disorders: No Other/Comment: arrived with vega cath from home,reported was inserted yesterday - Psychiatric Hx Psychophysiologic Disorder: No Hx Physical Abuse: No Hx Substance Use: No - Past Surgical History Past Surgical History: Non-Contributing - Suicidal Assessment Feels Threatened In Home Enviroment: No Family/Social History - Physician Review Nursing Documentation Reviewed: Yes Family/Social History: No Known Family HX Smoking Status: Unknown If Ever Smoked Hx Alcohol Use: No Hx Substance Use: No Hx Substance Use Treatment: No Allergies/Home Meds Allergies/Adverse Reactions: Allergies No Known Allergies Allergy (Verified 03/11/15 08:58) Home Medications: Home Meds Medication Instructions Recorded Confirmed Allopurinol [Zyloprim] 100 mg PO DAILY 08/04/16 12/12/17 Ergocalciferol (Vitamin D2) 50,000 unit PO QWK 08/04/16 12/12/17 [Vitamin D2] Metoprolol Succinate 25 mg PO DAILY 08/04/16 12/12/17 Pantoprazole Sodium [Protonix] 40 mg PO DAILY 08/04/16 12/12/17 Prednisone [Paxton] 5 mg PO DAILY 08/04/16 12/12/17 Ramipril [Altace] 10 mg PO DAILY 08/04/16 12/12/17 Simvastatin 10 mg PO DAILY 08/04/16 12/12/17 Furosemide [Lasix] 40 mg PO DAILY 12/12/17 12/12/17 Potassium Chloride [Klor-Con M20] 20 meq PO DAILY 12/12/17 12/12/17 Tramadol HCl [Ultram] 50 mg PO Q8 PRN 12/12/17 12/12/17 Review of Systems - Physician Review All systems were reviewed & negative as marked: Yes - Review of Systems Constitutional: Other (generalized weakness). absent: Fevers, Night Sweats Respiratory: absent: Cough Cardiovascular: absent: Chest Pain Gastrointestinal: absent: Abdominal Pain, Constipation, Diarrhea, Nausea, Vomiting Genitourinary Female: absent: Urine Output Changes Musculoskeletal: Back Pain, Myalgias (bilateral lower extremity pain). absent: Neck Pain Skin: Normal Neurological: absent: Headache, Dizziness Physical Exam Vital Signs Reviewed: Yes Vital Signs Temp Pulse Resp BP Pulse Ox 12/12/17 12:46 97.5 F L 79 18 145/62 97 Temperature: Afebrile Blood Pressure: Normal Pulse: Regular Respiratory Rate: Normal Appearance: Positive for: Well-Appearing Mental Status: Positive for: Alert and Oriented X 3 Finger Stick Blood Glucose: 93 - Systems Exam Head: Present: Atraumatic, Normocephalic Pupils: Present: PERRL Extroacular Muscles: Present: EOMI Conjunctiva: Present: Normal Mouth: Present: Moist Mucous Membranes Neck: Present: Normal Range of Motion Respiratory/Chest: Present: Clear to Auscultation, Good Air Exchange. No: Respiratory Distress, Accessory Muscle Use Cardiovascular: Present: Regular Rate and Rhythm, Normal S1, S2. No: Murmurs Abdomen: No: Tenderness, Distention, Peritoneal Signs Back: Present: Normal Inspection Upper Extremity: Present: Normal Inspection. No: Cyanosis, Edema Lower Extremity: Present: Edema (Bilateral lower extremities), Other (right lower extremity wrapped; chronic venous stasis in bilateral lower extremities.) Neurological: Present: GCS=15, CN II-XII Intact, Speech Normal Skin: Present: Warm, Dry, Normal Color. No: Rashes Psychiatric: Present: Alert, Oriented x 3, Normal Insight, Normal Concentration Medical Decision Making ED Course and Treatment: 12/12/17 13:21 Impression: Patient is a 87 year old female complaining of generalized weakness, back pain, and lower extremity pain for the past 2 months. Differential Diagnosis included but are not limited to: Plan: -- EKG -- Chest X-ray -- Labs -- Blood work -- Percocet -- Urinalysis -- Lower extremity doppler -- Reassess and disposition Prior Visits: Notes and results from previous visits were reviewed. Progress Notes: 12/12/17 16:42 on reassessment, patient reports that she simply "feels tired". patient states that she cannot walk because her legs feel so weak. at this point, i do not feel patient can ambulate safely or be discharged home. patient will need admission, PT and is potential candidate for rehab. - Lab Interpretations Lab Results: Lab Results 12/12/17 12:50: POC Glucose (mg/dL) 93 I have reviewed the lab results: Yes - RAD Interpretation Narrative RAD Interpretations (Text): 12/12/17 15:14 Chest X-ray: Dictator : Joe Diaz MD FINDINGS: LUNGS: No active pulmonary disease. PLEURA: No significant pleural effusion identified, no pneumothorax apparent. CARDIOVASCULAR:Cardiomegaly. No evidence of acute, significant cardiovascular disease. OSSEOUS STRUCTURES: No significant abnormalities. VISUALIZED UPPER ABDOMEN: Normal. OTHER FINDINGS: None. IMPRESSION: No active disease. No significant interval change compared to the prior examination(s). 12/12/17 16:40 prelim Us report: negative for bilat DVT lower ext 12/12/17 17:26 Lower Extremity Doppler: Dictator : Carlo Sandra MD FINDINGS: The visualized deep venous systems of both lower extremities are sonographically normal and compressible. Normal wave forms and augmentation are seen. There is no sonographic evidence for deep venous thrombosis in the visualized segments of both lower extremities. IMPRESSION: No sonographic evidence for deep venous thrombosis in the visualized segments of both lower extremities. Very limited study Diamond Grinder: Radiologist - Scribe Statement The provider has reviewed the documentation as recorded by the Scribe Napoleon Teresachi Provider Scribe Attestation: All medical record entries made by the Scribe were at my direction and persona belay dictated by me. I have reviewed the chart and agree that the record accurately reflects my personal performance of the history, physical exam, medical decision making, and the department course for this patient. I have also personally directed, reviewed, and agree with the discharge instructions and disposition. Disposition/Present on Arrival - Present on Arrival History of DVT/PE: No History of Uncontrolled Diabetes: No Urinary Catheter: Yes History of Decub. Ulcer: No History Surgical Site Infection Following: None - Disposition Disposition Time: 16:04 Referrals: Summer Garces MD [Primary Care Provider] - Follow up with primary Forms: [employer] (Armenian)
[2017-12-12] MEDS ORDERED: Oxycodone/Acetaminophen 5/325 mg Tab PO STA ×2 (13:23→18:30)
[2017-12-12 14:05] LABS: BASO # 0.03 K/mm3 (0.0-2.0); BASO % 0.4 % (0.0-3.0); EOS # 0.1 (0.0-0.7); EOS % 1.7 % (1.5-5.0); GRAN # 5.35 (1.4-6.5); GRAN % 68.5 % (50.0-68.0); HEMOGLOBIN 11.7 g/dL (12.0-16.0); LYMPH # 1.7 (1.2-3.4); LYMPH % 22.1 % (22.0-35.0); MEAN CORPUSCULAR HEMOGLOBIN 30.5 pg (25.0-35.0); MEAN CORPUSCULAR HGB CONC 32.9 g/dl (31.0-37.0); MEAN PLATELET VOLUME 10.8 fl (7.0-11.0); MONO # 0.6 (0.1-0.6); MONO % 7.3 % (1.0-6.0); RBC 3.83 10^6/uL (3.5-6.1); URINE BILIRUBIN NEGATIVE (NEGATIVE); URINE BLOOD TRACE-INTACT (NEGATIVE); URINE GLUCOSE (UA) NEGATIVE (NEGATIVE); URINE LEUKOCYTE ESTERASE TRACE Leu/uL (NEGATIVE); URINE PROTEIN TRACE mg/dL (<30 mg/dL); URINE UROBILINOGEN 0.2 E.U./dL (<1 E.U./dL); WHITE BLOOD COUNT 7.8 10^3/ul (4.5-11.0)
[2017-12-12 14:06] LABS: URINE APPEARANCE CLEAR (CLEAR); URINE COLOR YELLOW (YELLOW)
[2017-12-12 14:13] LABS: ALB/GLOB RATIO 1.3 (1.1-1.8); ALBUMIN 3.7 g/dL (3.0-4.8); CALCIUM 9.5 mg/dL (8.4-10.5)
[2017-12-12 14:19] LABS: URINE BACTERIA FEW (NEG); URINE EPITHELIAL CELLS 0 - 2 /hpf (0-5); URINE RBC 0 - 2 /hpf (0-2)
--- NOTE | 2017-12-12 14:21 | RAD ---
Date of service: 12/12/2017 HISTORY: Chest pain. COMPARISON: 03/11/2015. FINDINGS: LUNGS: No active pulmonary disease. PLEURA: No significant pleural effusion identified, no pneumothorax apparent. CARDIOVASCULAR: Cardiomegaly. No evidence of acute, significant cardiovascular disease. OSSEOUS STRUCTURES: No significant abnormalities. VISUALIZED UPPER ABDOMEN: Normal. OTHER FINDINGS: None. IMPRESSION: No active disease. No significant interval change compared to the prior examination(s).
--- NOTE | 2017-12-12 17:17 | US ---
HISTORY: Leg pain and swelling. Evaluate for DVT PHYSICIAN(S): Carlo Montes MD. TECHNIQUE: Duplex sonography and color-flow Doppler with graded compression were used to evaluate the deep venous systems of both lower extremities. The exam is very limited due to body habitus and edema. FINDINGS: The visualized deep venous systems of both lower extremities are sonographically normal and compressible. Normal wave forms and augmentation are seen. There is no sonographic evidence for deep venous thrombosis in the visualized segments of both lower extremities. IMPRESSION: No sonographic evidence for deep venous thrombosis in the visualized segments of both lower extremities. Very limited study
--- NOTE | 2017-12-12 18:16 | CT ---
Date of service: 12/12/2017 PROCEDURE: CT HEAD WITHOUT CONTRAST. HISTORY: weakness COMPARISON: CT head dated 08/04/2016. TECHNIQUE: Axial computed tomography images were obtained through the head/brain without intravenous contrast. Radiation dose: Total exam DLP = 770.1 mGy-cm. This CT exam was performed using one or more of the following dose reduction techniques: Automated exposure control, adjustment of the mA and/or kV according to patient size, and/or use of iterative reconstruction technique. FINDINGS: HEMORRHAGE: No intracranial hemorrhage. BRAIN: No mass effect or edema. Atrophy. Chronic microvascular ischemic changes. VENTRICLES: Unremarkable. No hydrocephalus. CALVARIUM: Unremarkable. PARANASAL SINUSES: Unremarkable as visualized. No significant inflammatory changes. MASTOID AIR CELLS: Unremarkable as visualized. No inflammatory changes. OTHER FINDINGS: None. IMPRESSION: No acute intracranial pathology. Age-related changes. No significant interval change.
[2017-12-12] MEDS: POLYETHYLENE GLYCOL 3350 17 GM/Dose PACKET PO SCH (22:52)
--- NOTE | 2017-12-13 04:41 | HP ---
HISTORY OF PRESENT ILLNESS: The patient is an 87-year-old, patient of came to emergency room because of generalized increasing weakness. The patient lives by herself with her . States that she lately has not been able to get out of bed. She used to walk with a walker, but recently she has been increasingly deconditioned and disabled and not able to get out of bed being admitted for possible rehab and further evaluation. The patient states that she has been increasingly weak for last almost a month or two and complained of increasing leg swelling, complained of back pain and yesterday when she was in her electric wheelchair she slid out and was unable to get up by herself and her other family member helped her to get up and to sit back in chair. Denies any fever or chills. No headache. No cough, cough, no congestion. No abdominal pain. No diarrhea. PAST MEDICAL HISTORY: Significant for: 1. Hypertension. 2. Morbid obesity. 3. Deconditioning and difficulty walking. 4. Bilateral hip osteoarthritis. 5. Chronic venous stasis dermatitis. 6. Thrombocytopenia. ALLERGIES: SHE IS NOT ALLERGIC TO ANY MEDICATION. MEDICATIONS AT HOME: The patient is on potassium, tramadol, Lasix 40 mg daily, MiraLax 17 g twice a day, vitamin D, allopurinol 100 mg daily, Protonix 40 daily, metoprolol 25 daily, simvastatin 10 mg daily, ramipril 10 mg daily and prednisone 5 mg daily. SOCIAL HISTORY: She lives with her family and her , has no history of smoking or alcohol use. PHYSICAL EXAMINATION: GENERAL: She is awake and alert. Able to communicate, poor historian. VITAL SIGNS: She is afebrile, pulse 78, respiration 18, blood pressure 138/79. LUNGS: Bilateral fair airflow, decreased at bases. HEART: S1 and S2 audible. ABDOMEN: Soft, obese, nontender. No rebound or guarding. NEUROLOGIC: She is awake and alert. EXTREMITIES: Bilateral leg edema with chronic stasis dermatitis. LABORATORY EXAMINATION: WBC 7.8, hemoglobin 11.7, hematocrit 35.6, platelet of 120. Chemistry, sodium 139, potassium 4.8, chloride 104, CO2 27, BUN 53, creatinine 1.7, blood sugar of 95. Urinalysis shows trace leukocyte. CT scan of the head, no acute intracranial abnormality detected and bilateral leg Doppler, no sonographic evidence of venous thrombosis. ASSESSMENT AND PLAN: 1. Status post fall. 2. Deconditioning, difficulty walking. 3. Morbid obesity. 4. Bilateral chronic stasis dermatitis. 5. Hypertension. 6. History of gout. 7. Hyperlipidemia. PLAN: We will resume the patient's usual medication. Request for physical therapy evaluation. We will follow up this patient. Rocky Steinberg MD
[2017-12-13] MEDS: Oxycodone/Acetaminophen 5/325 mg Tab PO PRN ×2 (05:12→10:39)
--- NOTE | 2017-12-13 09:10 | CARD ---
APPROVED REPORT Date of service: 12/12/2017 EKG Measurement Heart [id number] <Conclusion> Normal sinus rhythm Right bundle branch block Left anterior fascicular block Bifascicular block PRWP No change
[2017-12-13] MEDS: POLYETHYLENE GLYCOL 3350 17 GM/Dose PACKET PO SCH ×2 (10:38→17:53)
[2017-12-13] MEDS: Potassium Chloride 20 mEq ER Tab PO SCH (10:38)
[2017-12-13] MEDS: Metoprolol Succinate 25 mg XL Tab PO SCH (10:38)
[2017-12-13] MEDS: Pantoprazole 40 mg EC Tab PO SCH (10:38)
--- NOTE | 2017-12-13 15:47 | PN ---
DATE: 12/13/2017 SUBJECTIVE: The patient is 87 years old, seen and examined, lying in bed, seems to be comfortable. Complained of bilateral leg pain. She states she was able to ambulate somewhat, but now she cannot put weight on her legs anymore and she has become totally bed bound, that is getting progressively worsens for the last month. PHYSICAL EXAMINATION VITAL SIGNS: She is afebrile, pulse 75, respirations 18, blood pressure 125/66. LUNGS: Bilateral good airflow. No rhonchi or crackle. HEART: S1 and S2 audible. ABDOMEN: Soft. Nontender. No rebound. No guarding. NEUROLOGICAL: She is awake and alert, able to communicate. LABORATORY EXAM: Sodium 139, potassium 4.8, chloride 104, CO2 of 27, BUN 53, creatinine 1.7, blood sugar of 95, magnesium 2.3. WBC 7.8, hemoglobin 11.7, hematocrit 35.6, platelet of 120. Urine shows trace leukocyte. ASSESSMENT: 1. Deconditioning and difficulty walking. 2. Bilateral leg cellulitis. 3. Morbid obesity. 4. Hyperlipidemia. 5. Bilateral hip osteoarthritis. 6. Chronic venous stasis. PLAN: I will request Dr. Quinn to evaluate her both leg wound and treat. Awaiting physical therapy evaluation. We will continue her on baseline medications and Superintendent Meter Tests to arrange for subacute rehab. Rocky Steinberg MD
[2017-12-14] MEDS: Potassium Chloride 20 mEq ER Tab PO SCH (09:24)
[2017-12-14] MEDS: Pantoprazole 40 mg EC Tab PO SCH (09:24)
[2017-12-14] MEDS: Metoprolol Succinate 25 mg XL Tab PO SCH (09:24)
[2017-12-14] MEDS: POLYETHYLENE GLYCOL 3350 17 GM/Dose PACKET PO SCH ×2 (09:25→17:11)
[2017-12-14] MEDS ORDERED: cefTRIAXone 1 gm 1 GM/100 ML BAG IVPB SCH (10:00)
--- NOTE | 2017-12-14 15:15 | RAD ---
Date of service: 12/14/2017 PROCEDURE: Bilateral Feet Radiographs. HISTORY: pain COMPARISON: None. FINDINGS: BONES: Right Foot: Diffuse osteopenia. No acute fracture. Left Foot: Use osteopenia. No acute fracture. JOINTS: Right Foot: Diffuse joint space narrowing. Left Foot: Diffuse joint space narrowing. SOFT TISSUES: Right Foot: Normal. Left Foot: Normal. OTHER FINDINGS: Bilateral Achilles enthesophytes and inferior plantar calcaneal spurs IMPRESSION: Diffuse osteopenia. No demonstrated acute fracture or dislocation. Degenerative changes.
--- NOTE | 2017-12-14 15:18 | RAD ---
Date of service: 12/13/2017 PROCEDURE: Radiographs of the Lumbar Spine. HISTORY: low back pain COMPARISON: Correlation is made to CT scan of the abdomen and pelvis dated 03/11/2015. FINDINGS: BONES: Dextro convex curvature of the lumbar spine centered at L3. No listhesis. Chronic L2 vertebral compression fracture. Age-indeterminate compression deformity of the L4 superior endplate. DISC SPACES: Multilevel degenerative changes. OTHER FINDINGS: None. IMPRESSION: Age-indeterminate mild compression deformity of the L4 superior endplate. MRI of the lumbar spine can be obtained for further characterization of acuity as clinically warranted. Chronic L2 vertebral compression fracture. Multilevel degenerative changes.
--- NOTE | 2017-12-14 19:46 | CP.PCM.CON ---
<Parveen Gill - Last Filed: 12/14/17 19:32> History of Present Illness - History of Present Illness History of Present Illness: Poditry consult note for attending Dr. Cerda: 87 y/o female with PMH of HTN, Veous stasis edemaseen and evaluated at the bed side for B/l foot pain. Patient states that She is admitted to the hospital cause she has generalized pain . Patient states that she has pain 6/10 on the inside of both her ankles. Patient states that she has the pain since she trippe d off her chair 1 week ago. Patient states that she is bedridden. Patient states that she has venous stasis and edema in her legs and she is following up with Dr. Quinn. Patient states that compression dressing applied last time to her right leg. Patient denies any other pedal complaint at that time. Patient denies any recent F/N/V/C or SOB. PMH: HTN, Venous stasis edema PSH: Unknown Allergies: NKDA Social Hx: Denies tobacco, EtOH, or illicit drug use Review of Systems - Review of Systems Review of Systems: As per HPI Past Patient History - Infectious Disease Hx of Infectious Diseases: None - Tetanus Immunizations Tetanus Immunization: Unknown - Past Social History Smoking Status: Never Smoked - CARDIAC Hx Cardiac Disorders: Yes - PULMONARY Hx Respiratory Disorders: No - NEUROLOGICAL Hx Neurological Disorder: No - HEENT Hx HEENT Problems: No - ENDOCRINE/METABOLIC Hx Endocrine Disorders: No - HEMATOLOGICAL/ONCOLOGICAL Other/Comment: PLATELET ABNORMALITY - INTEGUMENTARY Hx Dermatological Problems: No - MUSCULOSKELETAL/RHEUMATOLOGICAL Hx Falls: Yes - GASTROINTESTINAL Hx Gastrointestinal Disorders: No - GENITOURINARY/GYNECOLOGICAL Hx Genitourinary Disorders: Yes Hx Reproductive Disorders: No Other/Comment: arrived with vega cath from home,reported was inserted yesterday - PSYCHIATRIC Hx Substance Use: No - SURGICAL HISTORY Hx Surgeries: No Meds Allergies/Adverse Reactions: Allergies Allergy/AdvReac Type Severity Reaction Status Date / Time No Known Allergies Allergy Verified 03/11/15 08:58 - Medications Medications: Current Medications Acetaminophen (Tylenol 325mg Tab) 650 mg PO Q6H PRN PRN Reason: Fever >100.4 F Allopurinol (Zyloprim) 100 mg PO DAILY KAYLEE Last Admin: 12/14/17 09:24 Dose: 100 mg Atorvastatin Calcium (Lipitor) 10 mg PO DAILY [facility] Last Admin: 12/14/17 09:24 Dose: 10 mg Cefpodoxime Proxetil (Vantin) 200 mg PO DAILY [facility] Docusate Sodium (Colace) 100 mg PO BID [facility] Last Admin: 12/14/17 17:11 Dose: 100 mg Furosemide (Lasix) 40 mg IVP DAILY [facility] Last Admin: 12/14/17 09:25 Dose: 40 mg Metoprolol Succinate (Toprol Xl) 25 mg PO DAILY [facility] Last Admin: 12/14/17 09:24 Dose: 25 mg Oxycodone/Acetaminophen (Percocet 5/325 Mg Tab) 1 tab PO Q6H PRN PRN Reason: Pain, severe (8-10) Stop: 12/15/17 18:38 Last Admin: 12/13/17 10:39 Dose: 1 tab Pantoprazole Sodium (Protonix Ec Tab) 40 mg PO DAILY [facility] Last Admin: 12/14/17 09:24 Dose: 40 mg Polyethylene Glycol (Miralax) 17 gm PO BID [facility] Last Admin: 12/14/17 17:11 Dose: 17 gm Potassium Chloride (K-Dur 20 Meq Er Tab) 20 meq PO DAILY [facility] Last Admin: 12/14/17 09:24 Dose: 20 meq Prednisone (Prednisone Tab) 5 mg PO DAILY [facility] Last Admin: 12/14/17 09:24 Dose: 5 mg Ramipril (Altace) 10 mg PO DAILY [facility] Last Admin: 12/14/17 09:24 Dose: 10 mg Physical Exam - Constitutional Appears: Well, Non-toxic, No Acute Distress - Head Exam Head Exam: ATRAUMATIC, NORMOCEPHALIC - Extremities Exam Additional comments: B/l LE focused exam: Vasc: DP/PT 1/4 b/l. Cap refill < 3 sec in all digits. Temp gardient warm to cool b/l from proximal to distal b/l. No erythema noted. B/L leg stasis +1 Pitting edema. Neuro: Gross sensation intact, Protective sensation diminished b/l. Derm: No open lesions. No clinical signs of active infection. B/L leg venous stasis dermal changes (Hyperpigmentation and lichnefication) No clinical signs of active infection. MSK: Pain on palpating the medial side of the ankle b/l. Muscle power 3/5 in all groups b/l. All foot and ankle joints ROM are WNL. No pain with ankle ROM b/l. - Neurological Exam Neurological exam: Alert, Oriented x3 - Psychiatric Exam Psychiatric exam: Normal Affect, Normal Mood Results - Vital Signs Recent Vital Signs: Last Vital Signs Temp 98.7 F 12/14/17 15:36 Pulse 82 12/14/17 15:36 Resp 20 12/14/17 15:36 BP 102/60 12/14/17 15:36 Pulse Ox 94 L 12/14/17 15:36 - Labs Result Diagrams: 12/12/17 13:56 12/12/17 13:56 Assessment & Plan - Assessment and Plan (Free Text) Assessment: 87 y/o F patient seen and evaluated at the bed side for B/l foot pain. Plan: Patient seen and evaluated at the bedside. Plan discussed in detailes with dr. Cerda Chart, labs and vitals reviewed; Afebrile, WBCs 7.8 B/l Foot X-ray: diffuse osteopenia. No fractures Nicolás bandage applied to the patient right LE Podiatry will follow up the patient while in house. - Date & Time Date: 12/14/17 Time: 12:15 <Wil Cerda - Last Filed: 12/15/17 08:17> Meds - Medications Medications: Current Medications Acetaminophen (Tylenol 325mg Tab) 650 mg PO Q6H PRN PRN Reason: Fever >100.4 F Allopurinol (Zyloprim) 100 mg PO DAILY [facility] Last Admin: 12/14/17 09:24 Dose: 100 mg Atorvastatin Calcium (Lipitor) 10 mg PO DAILY [facility] Last Admin: 12/14/17 09:24 Dose: 10 mg Cefpodoxime Proxetil (Vantin) 200 mg PO DAILY [facility] Docusate Sodium (Colace) 100 mg PO BID [facility] Last Admin: 12/14/17 17:11 Dose: 100 mg Furosemide (Lasix) 40 mg IVP DAILY [facility] Last Admin: 12/14/17 09:25 Dose: 40 mg Metoprolol Succinate (Toprol Xl) 25 mg PO DAILY [facility] Last Admin: 12/14/17 09:24 Dose: 25 mg Oxycodone/Acetaminophen (Percocet 5/325 Mg Tab) 1 tab PO Q6H PRN PRN Reason: Pain, severe (8-10) Stop: 12/15/17 18:38 Last Admin: 12/13/17 10:39 Dose: 1 tab Pantoprazole Sodium (Protonix Ec Tab) 40 mg PO DAILY [facility] Last Admin: 12/14/17 09:24 Dose: 40 mg Polyethylene Glycol (Miralax) 17 gm PO BID [facility] Last Admin: 12/14/17 17:11 Dose: 17 gm Potassium Chloride (K-Dur 20 Meq Er Tab) 20 meq PO DAILY [facility] Last Admin: 12/14/17 09:24 Dose: 20 meq Prednisone (Prednisone Tab) 5 mg PO DAILY [facility] Last Admin: 12/14/17 09:24 Dose: 5 mg Ramipril (Altace) 10 mg PO DAILY [facility] Last Admin: 12/14/17 09:24 Dose: 10 mg Results - Vital Signs Recent Vital Signs: Last Vital Signs Temp 98.6 F 12/15/17 06:00 Pulse 80 12/15/17 06:00 Resp 20 12/15/17 06:00 BP 134/69 12/15/17 06:00 Pulse Ox 96 12/15/17 06:00 - Labs Result Diagrams: 12/12/17 13:56 12/12/17 13:56 Attending/Attestation - Attestation I have personally seen and examined this patient.: Yes I have fully participated in the care of the patient.: Yes I have reviewed all pertinent clinical information: Yes
[2017-12-15] MEDS: Potassium Chloride 20 mEq ER Tab PO SCH (09:17)
[2017-12-15] MEDS: Cefpodoxime (Vantin) 200 mg Tab PO SCH (09:17)
[2017-12-15] MEDS: POLYETHYLENE GLYCOL 3350 17 GM/Dose PACKET PO SCH ×2 (09:18→17:16)
[2017-12-15] MEDS: Pantoprazole 40 mg EC Tab PO SCH (09:18)
[2017-12-15] MEDS: Metoprolol Succinate 25 mg XL Tab PO SCH (09:18)
--- NOTE | 2017-12-15 10:59 | PN ---
DATE: 12/15/2017 SUBJECTIVE: This is an 87-year-old female seen at bedside for continued evaluation and management of resolved venous stasis ulcerations on both lower legs as well as bilateral lower extremity edema and bilateral foot pain. She states she is feeling much better and the pain in her feet has resolved. She sustained a fall approximately two days ago and was brought to the Emergency Room. She is complaining of lower extremity muscle weakness. The patient's vital signs revealed temperature of 98.6, pulse rate of 80, blood pressure of 134/69, respiratory rate of 20. Laboratory findings reveal white count of 7.8, hemoglobin 11.7, hematocrit of 35.6, platelet count of . X-ray report taken of both feet reveal diffuse joint space narrowing as well as diffuse osteopenia. There is no evidence of acute fractures, dislocation or tumors. OBJECTIVE: Weakly palpable pedal pulses noted bilaterally. Capillary filling time is within normal limits in all digits. Temperature gradient warm to cool bilaterally from proximal to distal. There is noted to be in +1 pitting edema noted bilaterally, venous stasis changes consistent with long-term peripheral vascular disease evident on both lower extremities; however, there are noted to be no open lesions, no drainage, no signs of cellulitis. Protective sensation is diminished using 5.07 g monofilament wire testing bilaterally. There is no pain upon palpation of either foot. There is no pain upon palpation with dorsiflexion, plantar flexion, inversion, eversion, supination and pronation. ASSESSMENT: This is an 87-year-old female seen at bedside for resolved venous stasis ulcerations bilaterally and resolved pain bilaterally. PLAN: The patient was seen and evaluated at bedside. Chart, labs and vitals all reviewed. X-rays were reviewed. We will order Nicolás compressive dressings. We will order light compression dressings to both lower legs to be applied on the day and remove that night prior to bedtime. The patient was told that we will return and the patient will debride all her nail plates as they are elongated. The patient was encouraged to ambulate as tolerated. The patient was encouraged to continue physical therapy. Wil Cerda DPM [facility] # [id number]
--- NOTE | 2017-12-15 11:07 | CP.PCM.PN ---
<Ignacio Calderon - Last Filed: 12/15/17 11:05> Subjective - Date & Time of Evaluation Date of Evaluation: 12/15/17 Time of Evaluation: 11:05 - Subjective Subjective: Poditry progress note for attending Dr. Cerda: 87 y/o female seen and evaluated at the bed side for B/l foot pain. Patient states that She is admitted to the hospital cause she has generalized pain . Patient states that she has pain 6/10 on the inside of both her ankles. Patient states that she is bedridden. Patient states that she has venous stasis and edema in her legs and she is following up with Dr. Quinn. Patient states that compression dressing applied last time to her right leg. Patient denies any other pedal complaint at that time. Patient denies any recent F/N/V/C or SOB. Objective - Vital Signs/Intake and Output Vital Signs (last 24 hours): Temp Pulse Resp BP Pulse Ox 98.6 F 80 20 132/68 96 12/15/17 06:00 12/15/17 06:00 12/15/17 06:00 12/15/17 09:18 12/15/17 06:00 Intake and Output: 12/15/17 12/15/17 06:59 18:59 Intake Total 620 Output Total 400 Balance 220 - Medications Medications: Current Medications Acetaminophen (Tylenol 325mg Tab) 650 mg PO Q6H PRN PRN Reason: Fever >100.4 F Allopurinol (Zyloprim) 100 mg PO DAILY [facility] Last Admin: 12/15/17 09:18 Dose: 100 mg Atorvastatin Calcium (Lipitor) 10 mg PO DAILY [facility] Last Admin: 12/15/17 09:18 Dose: 10 mg Cefpodoxime Proxetil (Vantin) 200 mg PO DAILY [facility] Last Admin: 12/15/17 09:17 Dose: 200 mg Docusate Sodium (Colace) 100 mg PO BID [facility] Last Admin: 12/15/17 09:18 Dose: 100 mg Furosemide (Lasix) 40 mg IVP DAILY [facility] Last Admin: 12/15/17 09:19 Dose: Not Given Metoprolol Succinate (Toprol Xl) 25 mg PO DAILY [facility] Last Admin: 12/15/17 09:18 Dose: 25 mg Oxycodone/Acetaminophen (Percocet 5/325 Mg Tab) 1 tab PO Q6H PRN PRN Reason: Pain, severe (8-10) Stop: 12/15/17 18:38 Last Admin: 12/13/17 10:39 Dose: 1 tab Pantoprazole Sodium (Protonix Ec Tab) 40 mg PO DAILY [facility] Last Admin: 12/15/17 09:18 Dose: 40 mg Polyethylene Glycol (Miralax) 17 gm PO BID [facility] Last Admin: 12/15/17 09:18 Dose: 17 gm Potassium Chloride (K-Dur 20 Meq Er Tab) 20 meq PO DAILY [facility] Last Admin: 12/15/17 09:17 Dose: 20 meq Prednisone (Prednisone Tab) 5 mg PO DAILY [facility] Last Admin: 12/15/17 09:18 Dose: 5 mg Ramipril (Altace) 10 mg PO DAILY [facility] Last Admin: 12/15/17 09:17 Dose: 10 mg - Labs Labs: 12/12/17 13:56 12/12/17 13:56 - Constitutional Appears: Well, Non-toxic, No Acute Distress - Head Exam Head Exam: ATRAUMATIC, NORMOCEPHALIC - Extremities Exam Additional comments: B/l LE focused exam: Vasc: DP/PT 1//4 b/l. Cap refill < 3 sec in all digits. Temp gardient warm to cool b/l from proximal to distal b/l. No erythema noted. B/L leg stasis +1 Pitting edema. Neuro: Gross sensation intact, Protective sensation diminished b/l. Derm: No open lesions. No clinical signs of active infection. B/L leg venous stasis dermal changes (Hyperpigmentation and lichnefication) No clinical signs of active infection. MSK: Pain on palpating the medial side of the ankle b/l. Muscle power 3/5 in all groups b/l. All foot and ankle joints ROM are WNL. No pain with ankle ROM b/l. - Neurological Exam Neurological Exam: Alert, Awake, Oriented x3 - Psychiatric Exam Psychiatric exam: Normal Affect, Normal Mood Assessment and Plan - Assessment and Plan (Free Text) Assessment: 87 y/o F patient seen and evaluated at the bed side for B/l foot pain. Plan: Patient seen and evaluated at the bedside. Plan discussed in detailes with dr. Cerda Chart, labs and vitals reviewed; Afebrile, WBCs 7.8 B/l Foot X-ray: diffuse osteopenia. No fractures No bandage applied to either leg Stable from podiatry standpoint Podiatry will follow up the patient while in house. <Wil Cerda - Last Filed: 12/18/17 12:08> Objective - Vital Signs/Intake and Output Vital Signs (last 24 hours): Temp Pulse Resp BP Pulse Ox 97.9 F 80 20 125/67 94 L 12/17/17 14:00 12/17/17 14:00 12/17/17 14:00 12/17/17 14:00 12/17/17 14:00 - Labs Labs: 12/12/17 13:56 12/12/17 13:56 Attending/Attestation - Attestation I have personally seen and examined this patient.: Yes I have fully participated in the care of the patient.: Yes I have reviewed all pertinent clinical information, including history, physical exam and plan: Yes
[2017-12-15] MEDS ORDERED: Magnesium Citrate Oral SOL (300 ml) PO ONE (17:34)
--- NOTE | 2017-12-15 18:05 | PN ---
DATE: 12/15/2017 SUBJECTIVE: The patient is 87 years old, seen and examined, complained of back pain. Unable to get out of bed. Eating and tolerating. No nausea or vomiting. PHYSICAL EXAMINATION: VITAL SIGNS: She is afebrile, pulse 80, respirations 20, blood pressure 132/68. LUNGS: Bilateral good airflow. No rhonchi or crackle. HEART: S1 and S2 audible. ABDOMEN: Soft. Nontender. No rebound. No guarding. NEUROLOGICAL: The patient is awake and alert, able to communicate. LABORATORY EXAM: Urine is positive for E. coli, ESBL negative. Had x-ray of the lumbar spine done that shows compression fracture of L4, age undetermined. She has chronic L2 vertebral fracture. ASSESSMENT: 1. Deconditioning, difficulty walking. 2. Back pain, probably secondary to compression fracture of L4. 3. Morbid obesity. 4. Hypertension. 5. Chronic venous stasis. 6. Chronic stasis dermatitis of lower extremities. PLAN: Get MRI of lumbosacral spine. Depending on age of fracture, if she is a candidate of kyphoplasty, she will be evaluated by Dr. Carlo Montes. If not, she will be transferred to subacute rehab on Sunday. Rocky Steinberg MD
[2017-12-16] MEDS: Potassium Chloride 20 mEq ER Tab PO SCH (09:36)
[2017-12-16] MEDS: POLYETHYLENE GLYCOL 3350 17 GM/Dose PACKET PO SCH ×2 (09:36→19:11)
[2017-12-16] MEDS: Cefpodoxime (Vantin) 200 mg Tab PO SCH (09:36)
[2017-12-16] MEDS: Metoprolol Succinate 25 mg XL Tab PO SCH (09:36)
[2017-12-16] MEDS: Pantoprazole 40 mg EC Tab PO SCH (09:49)
--- NOTE | 2017-12-16 18:21 | MRI ---
Date of service: 12/16/2017 PROCEDURE: MR LUMBAR SPINE WITHOUT CONTRAST HISTORY: L4 compression COMPARISON: Comparison made with plain film radiographs lumbar spine 12/13/2017 TECHNIQUE: Multiecho multiplanar sequences were performed through the lumbar spine without the use of intravenous contrast. FINDINGS: The current study reveals multilevel chronic appearing compression deformities of the lumbar spine including the L2, L4 with endplate deformities and chronic Schmorl's nodes throughout. There is edema seen within the left sacral ala suggesting an acute fracture.. Some mild edema is also seen within the mid posterior paraspinal soft tissues T12-L1: No disc herniation, spinal canal stenosis or neural foraminal narrowing. L1-2: Disc desiccation and disc space narrowing of more so along the posterior disc margin. Small osteophytic ridge disc complex contiguous with hypertrophic uncovertebral joints. Facets are hypertrophic mild flattening of the ventral surface of the thecal sac and posterior displacement of the ventrally located nerve roots of the cauda equina. Central canal is narrowed. Exit foramina are severely stenotic on the right and moderately stenotic on the left L2-3: Disc desiccation with mild posterior disc space narrowing. Bilateral lateral disc herniation ridge complex extends into the proximal inferior margins of both exit foramina there are compressive effects on the anterolateral borders of the thecal sac bilaterally right greater than left with bilateral lateral recess stenosis. The facets are hypertrophic. Significant bilateral sent foraminal stenosis. L3-4: There is disc desiccation and mild posterior disc space narrowing. Small broad-based disc bulge ridge complex also extends into the proximal inferior margins of both exit foramina. Facet joints are hypertrophic. Mild bilateral lateral recess stenosis. Exit foramina are narrowed bilaterally left more severely than the right. L4-5: There is disc desiccation however disc space height is relatively maintained. Minimal anterior subluxation L4 over L5. Broad-based though somewhat irregular disc ridge complex extends into the proximal inferior margins of both exit foramina. Facet joints are hypertrophic. Bilateral lateral recess stenosis of and bilateral foraminal stenosis left greater than right. L5-S1: No disc herniation, spinal canal stenosis or neural foraminal narrowing. OTHER FINDINGS: None. IMPRESSION: Findings consistent with an acute left sacral ala fracture.. Multilevel chronic appearing compression fractures of the lumbar spine as above. No significant retropulsion of fragments. Moderate to significant multilevel degenerative spondylosis most severely affecting the exit foramina as detailed above.
--- NOTE | 2017-12-16 21:07 | PN ---
DATE: 12/16/2017 SUBJECTIVE: The patient is 87 years old, seen and examined. Complained of back pain. Had difficulty in ambulating lately. She is unable to stand up because of back pain. X-ray shows compression fracture at L4. Patient is scheduled for MRI toady. PHYSICAL EXAMINATION: GENERAL: She is awake, alert, oriented, complained of back pain. VITAL SIGNS: She is afebrile, pulse 71, respirations 20, blood pressure 107/48. LUNGS: Bilateral fair airflow. No rhonchi or crackle. HEART: S1 and S2 audible. ABDOMEN: Soft. LABORATORY EXAM: There is no new lab available today. ASSESSMENT: 1. Intractable back pain. 2. L2 and L4 compression fracture. 3. Hypertension. 4. Hyperlipidemia. 5. Deconditioning, difficulty walking. 6. Morbid obesity. 7. Chronic venous stasis. 8. Bilateral stasis dermatitis. PLAN: We will follow up MRI if it is acute, she will need kyphoplasty. If it is chronic, she will be transferred to [place] tomorrow for rehab. Rocky Steinberg MD
--- NOTE | 2017-12-17 09:09 | PN ---
DATE: 12/14/2017 SUBJECTIVE: The patient is 87 years old, seen and examined, lying in bed, seems to be comfortable. Complained of some burning in the sacral area. She has erythema in that area. No skin break. PHYSICAL EXAMINATION: VITAL SIGNS: She is afebrile, pulse 82, respirations 20, blood pressure 102/60. LUNGS: Bilateral fair airflow. No rhonchi or crackle. HEART: S1 and S2 audible. ABDOMEN: Soft, obese, nontender. No rebound. No guarding. NEUROLOGICAL: The patient is awake and alert, able to communicate. EXTREMITIES: Moves all extremity. Has difficulty getting out of bed. Has difficulty standing up, pivoting herself. Bilateral legs, no edema. LABORATORY EXAM: Urine positive for E. coli, ESBL negative. Sensitive to Cipro. X-ray of the foot shows diffuse osteopenia. No demonstrable acute fracture or dislocation with a lot of degenerative changes. Lumbar spine compression deformity of L4. Plain MRI of the lumbar spine can be obtained. Chronic L2 vertebral compression fracture. Multilevel degenerative changes. ASSESSMENT: 1. Difficulty walking. 2. Deconditioning. 3. Morbid obesity. 4. Hypertension. 5. Compression fracture of L2 and L4. 6. Escherichia coli urinary tract infection. PLAN: We will get MRI of her lumbar spine. We will get opinion from Dr. Carlo Montes. Rocky Steinberg MD
[2017-12-17] MEDS: Cefpodoxime (Vantin) 200 mg Tab PO SCH (10:21)
[2017-12-17] MEDS: Pantoprazole 40 mg EC Tab PO SCH (10:36)
[2017-12-17] MEDS: Potassium Chloride 20 mEq ER Tab PO SCH (10:38)
[2017-12-17] MEDS: POLYETHYLENE GLYCOL 3350 17 GM/Dose PACKET PO SCH (10:38)
[2017-12-17] MEDS: Metoprolol Succinate 25 mg XL Tab PO SCH (10:40)
[2017-12-17] MEDS ORDERED: Lidocaine 5% Patch TD SCH (11:45)
[2017-12-17 15:22] VITALS: BP 125/67; PULSE 80; RESP 20; TEMP 97.9; O2SAT 94
[2017-12-17] MEDS ORDERED: Influenza Vaccine 60 mcg/0.5 mL SYR (4YR UP) IM ONE (16:14)
[2017-12-17] MEDS ORDERED: Pneumococcal 23-Valent Vaccine IM ONE (16:30)
--- NOTE | 2017-12-18 10:00 | DS ---
HISTORY OF PRESENT ILLNESS: Patient is 87 years old who came in with difficulty walking with having back pain. Patient stated she was able to get out of bed, stand up and walk to the bathroom at least, but she is unable to do that either. PHYSICAL EXAMINATION: GENERAL: Patient is awake, alert, oriented, communicative. VITAL SIGNS: Patient is afebrile. Pulse 64, respirations 18, blood pressure 94/66. LUNGS: Bilateral good airflow. No rhonchi or crackle. HEART: S1, S2, audible. ABDOMEN: Soft, obese, nontender, no rebound, no guarding. NEUROLOGIC: Patient is awake, alert, oriented. Able to communicate. EXTREMITIES: Bilateral legs, +1 edema. She has erythema of the sacral area. LABORATORY DATA: Had MRI of lumbosacral spine done that shows fracture of ala of sacrum, otherwise diffuse degenerative disk disease. ASSESSMENT: 1. Deconditioning, difficulty walking. 2. Acute left sacral ala fracture. 3. Degenerative disk disease. 4. Hypertension. 5. Morbid obesity. 6. Chronic constipation. 7. Gout. 8. E. Coli urinary tract infection. PLAN: Patient is going to be discharged to [place] for rehab. Will continue on Vantin, analgesic as needed. Will follow up patient in [place]. Rocky Steinberg MD
== END 2017-12-17 18:49 | DRG 300 ==
LOC: ED 12:32 → ERH 17:25 → 5RNO 21:16
PROVIDERS: ADMIT Internal Medicine; ATTEND Internal Medicine
DX: I83.12 Varicose veins of left lower extremity with inflammation (principal); Z68.41 Body mass index [BMI] 40.0-44.9, adult; M48.56XA Collapsed vertebra, not elsewhere classified, lumbar region, initial encounter for fracture; L03.115 Cellulitis of right lower limb; L03.116 Cellulitis of left lower limb; N39.0 Urinary tract infection, site not specified; I83.11 Varicose veins of right lower extremity with inflammation; R53.1 Weakness; E66.01 Morbid (severe) obesity due to excess calories; I87.8 Other specified disorders of veins; D69.6 Thrombocytopenia, unspecified; R29.6 Repeated falls; M10.9 Gout, unspecified; K59.09 Other constipation; I10 Essential (primary) hypertension; E78.5 Hyperlipidemia, unspecified; B96.20 Unspecified Escherichia coli [E. coli] as the cause of diseases classified elsewhere; M16.0 Bilateral primary osteoarthritis of hip; M85.80 Other specified disorders of bone density and structure, unspecified site; Z74.01 Bed confinement status; Z79.899 Other long term (current) drug therapy; M51.36 Other intervertebral disc degeneration, lumbar region; Z23 Encounter for immunization